=== PATIENT | female | born 1945 | race Caucasian/White ===

== ENCOUNTER 2021-01-27 09:00 | Outpatient (RCR) | payer MEDICARE, SELFPAY ==
--- NOTE | 2020-11-30 13:44 | W.PM.TMSCONS ---
History of Present Illness General Data Date of Service: 11/17/20 Reason for consult: TMS Requesting provider: Lambert Covington History of Present Illness The patient is a 75-year-old female with a history of severe recurrent depression who had responded well to TMS previously 2 years ago with marked reduction PHQ-9. Despite ongoing psychotherapy and multiple changes to medication patient reports low energy poor concentration difficulty functioning marked periods of helplessness hopelessness. The patient has currently been Effexor up to 225 mg nortriptyline to 75 mg and remains quite depressed with marked impairment in functioning. The patient had had improvement with Seroquel the past but had some mouth movements and has avoided treatment with medication that class. She has had to do with over the past year treatment for lung cancer with a lobe resection and has a good prognosis. The patient has failed trials of Anafranil Wellbutrin augmentation with BuSpar in addition to Effexor. Past Psychiatric History/Medication Trials: Long history of intermittent severe depression impacting her life in functioning see above for medication trials. 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 children Substance History: Past history of alcohol abuse has been sober and regularly goes to meetings Meds/Allergies Meds Narrative: Has been on Effexor up to 225 mg daily nortriptyline up to 75 mg daily at bedtime gabapentin 300 the morning 600 at bedtime trazodone at bedtime Allergies Allergies Allergy/AdvReac Type Severity Reaction Status Date / Time No Known Allergies Allergy Unverified 04/21/20 16:09 [No Known Allergies*] Mental Status Exam Mental Status Exam Patient Appearance: Appropriate Patient Orientation: Person, Place, Time and Situation Level of Consciousness: Awake Patient Behavior: Appropriate and Cooperative Mood Description: Withdrawn, Constricted, Depressed, Anxious, Blunted and Apprehensive Affect Description: Depressed, Anxious, Flat, Sad and Apprehensive Ability to Follow Directions: Good Speech Pattern: Clear Memory Description: Intact Hallucinations: None Delusions: Not Present Thought Process: Rumination Thought Content: positive for Obsessional Thoughts and positive for Suicidal Ideation (passive ) Depressive Symptoms: Increased Anxiety, Diff. Making Decisions, Increased Irritability, Feelings of Worthlessness, Increased Fatigue and Low Self Esteem Judgement: Good Assessment & Plan Assessment & Plan (1) Major depressive disorder, recurrent severe without psychotic features: Status: Acute Code(s): F33.2 - Major depressive disorder, recurrent severe without psychotic features Recommendations: Patient has had an exacerbation of depressive symptoms see PHQ-9 failed augmentation of venlafaxine with both BuSpar L methyl folate nortriptyline. sHe would benefit from retreatment with TMS there are no medical contraindications no pacemakers no surgery above had or neck no metallic implants no cochlear implants. Patient had done quite well with TMS in the past has failed multiple combinations of antidepressants and psychotherapy Greater than 50% of the session was spent on counseling and/or coordination of care
--- NOTE | 2020-12-01 20:01 | HO.TMSDAILY2 ---
TMS Daily Progress Note Daily TMS Progress Note Date of Service: 12/01/20 Week #: 1 Treatment #(09-03): 1 PHQ-9 Pre-Treatment (08-31): 19 PHQ-9 Most Recent (08-31): 18 Reviewed: TMS Tech Note Reviewed (initial mapping completed) Verification: I have reviewed the TMS Strategic Partner Development Manager Note and agree with the contents. The patient remains a candidate to continue TMS treatment per protocol.
--- NOTE | 2020-12-02 22:38 | P.PNPS_ITS ---
TMS Daily Progress Note Daily TMS Progress Note Date of Service: 12/02/20 Week #: 1 Treatment #(09-03): 2 PHQ-9 Pre-Treatment (08-31): 19 PHQ-9 Most Recent (08-31): 18 Reviewed: TMS Tech Note Reviewed Verification: I have reviewed the TMS Payable Processor Note and agree with the contents. The patient remains a candidate to continue TMS treatment per pro tocol.
--- NOTE | 2020-12-05 22:30 | P.PNPS_ITS ---
TMS Daily Progress Note Daily TMS Progress Note Date of Service: 12/05/20 Week #: 1 Treatment #(09-03): 3 PHQ-9 Pre-Treatment (08-31): 19 PHQ-9 Most Recent (08-31): 18 Reviewed: TMS Tech Note Reviewed Verification: I have reviewed the TMS Police Captain Note and agree with the contents. The patient remains a candidate to continue TMS treatment per pro tocol.
--- NOTE | 2020-12-06 22:32 | HO.TMSDAILY2 ---
TMS Daily Progress Note Daily TMS Progress Note Date of Service: 12/06/20 Week #: 1 Treatment #(09-03): 4 PHQ-9 Pre-Treatment (08-31): 19 PHQ-9 Most Recent (08-31): 18 Reviewed: TMS Tech Note Reviewed Verification: I have reviewed the TMS Glass Laminating Operator Note and agree with the contents. The patient remains a candidate to continue TMS treatment per protocol.
--- NOTE | 2020-12-07 21:19 | P.PNPS_ITS ---
TMS Daily Progress Note Daily TMS Progress Note Date of Service: 12/07/20 Week #: 1 Treatment #(09-03): 5 PHQ-9 Pre-Treatment (08-31): 19 PHQ-9 Most Recent (08-31): 18 Reviewed: TMS Tech Note Reviewed Verification: I have reviewed the TMS Tank Truck Engine Mechanic Note and agree with the contents. The patient remains a candidate to continue TMS treatment per pro tocol.
--- NOTE | 2020-12-08 21:17 | P.PNPS_ITS ---
TMS Daily Progress Note Daily TMS Progress Note Date of Service: 12/08/20 Week #: 2 Treatment #(09-03): 6 PHQ-9 Pre-Treatment (08-31): 19 PHQ-9 Most Recent (08-31): 18 Reviewed: TMS Tech Note Reviewed Verification: I have reviewed the TMS Artificial Foliage Arranger Note and agree with the contents. The patient remains a candidate to continue TMS treatment per pro tocol.
--- NOTE | 2020-12-09 22:16 | HO.TMSDAILY2 ---
TMS Daily Progress Note Daily TMS Progress Note Date of Service: 12/09/20 Week #: 2 Treatment #(09-03): 7 PHQ-9 Pre-Treatment (08-31): 19 PHQ-9 Most Recent (08-31): 18 Reviewed: TMS Tech Note Reviewed Verification: I have reviewed the TMS Sales Trainer Note and agree with the contents. The patient remains a candidate to continue TMS treatment per protocol.
--- NOTE | 2020-12-12 22:11 | P.PNPS_ITS ---
TMS Daily Progress Note Daily TMS Progress Note Date of Service: 12/12/20 Week #: 2 Treatment #(09-03): 8 PHQ-9 Pre-Treatment (08-31): 19 PHQ-9 Most Recent (08-31): 18 Reviewed: TMS Tech Note Reviewed Verification: I have reviewed the TMS Tanner Rotary Drum Continuous Process Note and agree with the contents. The patient remains a candidate to continue TMS treatment per pro tocol.
--- NOTE | 2020-12-13 22:07 | P.PNPS_ITS ---
TMS Daily Progress Note Daily TMS Progress Note Date of Service: 12/13/20 Week #: 2 Treatment #(09-03): 9 PHQ-9 Pre-Treatment (08-31): 19 PHQ-9 Most Recent (08-31): 18 Reviewed: TMS Tech Note Reviewed Verification: I have reviewed the TMS Solar Installation Technician Note and agree with the contents. The patient remains a candidate to continue TMS treatment per pro tocol.
--- NOTE | 2020-12-15 21:37 | P.PNPS_ITS ---
TMS Daily Progress Note Daily TMS Progress Note Date of Service: 12/15/20 Week #: 2 Treatment #(09-03): 10 PHQ-9 Pre-Treatment (08-31): 19 PHQ-9 Most Recent (08-31): 18 Reviewed: TMS Tech Note Reviewed Verification: I have reviewed the TMS Clinical Application Specialist Note and agree with the contents. The patient remains a candidate to continue TMS treatment per pr otocol.
--- NOTE | 2020-12-19 23:02 | HO.TMSDAILY2 ---
TMS Daily Progress Note Daily TMS Progress Note Date of Service: 12/19/20 Week #: 3 Treatment #(09-03): 12 PHQ-9 Pre-Treatment (08-31): 19 PHQ-9 Most Recent (08-31): 18 Reviewed: TMS Tech Note Reviewed Verification: I have reviewed the TMS Freight Service Inspector Note and agree with the contents. The patient remains a candidate to continue TMS treatment per protocol.
--- NOTE | 2020-12-20 22:43 | P.PNPS_ITS ---
TMS Daily Progress Note Daily TMS Progress Note Date of Service: 12/20/20 Week #: 8 Treatment #(09-03): 13 PHQ-9 Pre-Treatment (08-31): 19 PHQ-9 Most Recent (08-31): 18 Reviewed: TMS Tech Note Reviewed Verification: I have reviewed the TMS Family Member Caretaker Note and agree with the contents. The patient remains a candidate to continue TMS treatment per pr otocol.
--- NOTE | 2020-12-21 22:07 | P.PNPS_ITS ---
TMS Daily Progress Note Daily TMS Progress Note Date of Service: 12/21/20 Week #: 3 Treatment #(09-03): 14 PHQ-9 Pre-Treatment (08-31): 19 PHQ-9 Most Recent (08-31): 18 Reviewed: TMS Tech Note Reviewed Verification: I have reviewed the TMS Supervisor Car And Yard Note and agree with the contents. The patient remains a candidate to continue TMS treatment per pr otocol.
--- NOTE | 2020-12-22 22:26 | HO.TMSDAILY2 ---
TMS Daily Progress Note Daily TMS Progress Note Date of Service: 12/22/20 Week #: 3 Treatment #(09-03): 15 PHQ-9 Pre-Treatment (08-31): 19 PHQ-9 Most Recent (08-31): 18 Reviewed: TMS Tech Note Reviewed Verification: I have reviewed the TMS Clinical Scientist Note and agree with the contents. The patient remains a candidate to continue TMS treatment per protocol.
--- NOTE | 2020-12-24 00:01 | HO.TMSDAILY2 ---
TMS Daily Progress Note Daily TMS Progress Note Date of Service: 12/26/20 Week #: 3 Treatment #(09-03): 16 PHQ-9 Pre-Treatment (08-31): 19 PHQ-9 Most Recent (08-31): 18 Reviewed: TMS Tech Note Reviewed Verification: I have reviewed the TMS Firer Locomotive Crane Note and agree with the contents. The patient remains a candidate to continue TMS treatment per protocol.
--- NOTE | 2020-12-27 23:03 | HO.TMSDAILY2 ---
TMS Daily Progress Note Daily TMS Progress Note Date of Service: 12/27/20 Week #: 4 Treatment #(09-03): 18 PHQ-9 Pre-Treatment (08-31): 19 PHQ-9 Most Recent (08-31): 18 Reviewed: TMS Tech Note Reviewed Verification: I have reviewed the TMS Baseball Hand Sewer Note and agree with the contents. The patient remains a candidate to continue TMS treatment per protocol.
--- NOTE | 2020-12-28 07:42 | HO.TMSDAILY2 ---
TMS Daily Progress Note Daily TMS Progress Note Date of Service: 12/28/20 Week #: 4 Treatment #(09-03): 19 PHQ-9 Pre-Treatment (08-31): 19 PHQ-9 Most Recent (08-31): 18 Reviewed: TMS Tech Note Reviewed Verification: I have reviewed the TMS Internist Medical Doctor Md Note and agree with the contents. The patient remains a candidate to continue TMS treatment per protocol.
--- NOTE | 2020-12-29 21:52 | P.PNPS_ITS ---
TMS Daily Progress Note Daily TMS Progress Note Date of Service: 12/29/20 Week #: 4 Treatment #(09-03): 20 PHQ-9 Pre-Treatment (08-31): 19 PHQ-9 Most Recent (08-31): 18 Reviewed: TMS Tech Note Reviewed Verification: I have reviewed the TMS Semiconductor Packages Leak Tester Note and agree with the contents. The patient remains a candidate to continue TMS treatment per pr otocol.
--- NOTE | 2020-12-30 22:57 | P.PNPS_ITS ---
TMS Daily Progress Note Daily TMS Progress Note Date of Service: 12/30/20 Week #: 5 Treatment #(09-03): 21 PHQ-9 Pre-Treatment (08-31): 19 PHQ-9 Most Recent (08-31): 18 Reviewed: TMS Tech Note Reviewed Verification: I have reviewed the TMS Bleach Plant Operator Note and agree with the contents. The patient remains a candidate to continue TMS treatment per pr otocol.
--- NOTE | 2021-01-03 21:57 | P.PNPS_ITS ---
TMS Daily Progress Note Daily TMS Progress Note Date of Service: 01/03/21 Week #: 5 Treatment #(09-03): 22 PHQ-9 Pre-Treatment (08-31): 19 PHQ-9 Most Recent (08-31): 18 Reviewed: TMS Tech Note Reviewed Verification: I have reviewed the TMS Conservation Or Heritage Architect Note and agree with the contents. The patient remains a candidate to continue TMS treatment per pr otocol.
--- NOTE | 2021-01-04 21:47 | P.PNPS_ITS ---
TMS Daily Progress Note Daily TMS Progress Note Date of Service: 01/04/21 Week #: 5 Treatment #(09-03): 23 PHQ-9 Pre-Treatment (08-31): 19 PHQ-9 Most Recent (08-31): 18 Reviewed: TMS Tech Note Reviewed Verification: I have reviewed the TMS Maintenance Helper Utility Engineer Note and agree with the contents. The patient remains a candidate to continue TMS treatment per pr otocol.
--- NOTE | 2021-01-05 20:43 | HO.TMSDAILY2 ---
TMS Daily Progress Note Daily TMS Progress Note Date of Service: 01/05/21 Week #: 5 Treatment #(09-03): 24 PHQ-9 Pre-Treatment (08-31): 19 PHQ-9 Most Recent (08-31): 18 Reviewed: TMS Tech Note Reviewed Verification: I have reviewed the TMS Bookkeeping Manager Note and agree with the contents. The patient remains a candidate to continue TMS treatment per protocol.
--- NOTE | 2021-01-06 22:43 | P.PNPS_ITS ---
TMS Daily Progress Note Daily TMS Progress Note Date of Service: 01/06/21 Week #: 5 Treatment #(09-03): 25 PHQ-9 Pre-Treatment (08-31): 19 PHQ-9 Most Recent (08-31): 18 Reviewed: TMS Tech Note Reviewed Verification: I have reviewed the TMS Contracts Manager Note and agree with the contents. The patient remains a candidate to continue TMS treatment per pr otocol.
--- NOTE | 2021-01-10 21:30 | P.PNPS_ITS ---
TMS Daily Progress Note Daily TMS Progress Note Date of Service: 01/10/21 Week #: 6 Treatment #(09-03): 27 PHQ-9 Pre-Treatment (08-31): 19 PHQ-9 Most Recent (08-31): 18 Reviewed: TMS Tech Note Reviewed Verification: I have reviewed the TMS Director Housekeeping Note and agree with the contents. The patient remains a candidate to continue TMS treatment per pr otocol.
--- NOTE | 2021-01-12 12:19 | P.PNPS_ITS ---
TMS Daily Progress Note Daily TMS Progress Note Date of Service: 01/11/21 Week #: 6 Treatment #(09-03): 28 PHQ-9 Pre-Treatment (08-31): 19 PHQ-9 Most Recent (08-31): 18 Reviewed: TMS Tech Note Reviewed Verification: I have reviewed the TMS Multineedle Shirrer Note and agree with the contents. The patient remains a candidate to continue TMS treatment per pr otocol.
--- NOTE | 2021-01-12 23:03 | P.PNPS_ITS ---
TMS Daily Progress Note Daily TMS Progress Note Date of Service: 01/12/21 Week #: 6 Treatment #(09-03): 29 PHQ-9 Pre-Treatment (08-31): 19 PHQ-9 Most Recent (08-31): 18 Reviewed: TMS Tech Note Reviewed Verification: I have reviewed the TMS Circle Cutting Saw Operator Note and agree with the contents. The patient remains a candidate to continue TMS treatment per pr otocol.
--- NOTE | 2021-01-16 22:15 | P.PNPS_ITS ---
TMS Daily Progress Note Daily TMS Progress Note Date of Service: 01/17/21 Week #: 7 Treatment #(09-03): 31 PHQ-9 Pre-Treatment (08-31): 19 PHQ-9 Most Recent (08-31): 18 Reviewed: TMS Tech Note Reviewed Verification: I have reviewed the TMS Director Of Billing Note and agree with the contents. The patient remains a candidate to continue TMS treatment per pr otocol.
--- NOTE | 2021-01-17 23:49 | HO.TMSDAILY2 ---
TMS Daily Progress Note Daily TMS Progress Note Date of Service: 01/17/21 Week #: 7 Treatment #(09-03): 32 PHQ-9 Pre-Treatment (08-31): 19 PHQ-9 Most Recent (08-31): 18 Reviewed: TMS Tech Note Reviewed Verification: I have reviewed the TMS Director Of Counterintelligence Note and agree with the contents. The patient remains a candidate to continue TMS treatment per protocol.
--- NOTE | 2021-01-26 10:04 | P.PNPS_ITS ---
TMS Daily Progress Note Daily TMS Progress Note Date of Service: 01/20/21 Week #: 7 Treatment #(09-03): 33 PHQ-9 Pre-Treatment (08-31): 19 PHQ-9 Most Recent (08-31): 18 Reviewed: TMS Tech Note Reviewed Verification: late entry for I have reviewed the TMS Locker Room Attendant Note and agree with the contents. The patient remains a candidate to continue TMS treatment per protocol.
--- NOTE | 2021-01-26 13:12 | HO.TMSDAILY2 ---
TMS Daily Progress Note Daily TMS Progress Note Date of Service: 01/23/21 Week #: 8 Treatment #(09-03): 34 PHQ-9 Pre-Treatment (08-31): 19 PHQ-9 Most Recent (08-31): 18 Reviewed: TMS Tech Note Reviewed Verification: I have reviewed the TMS Customer Service Representative Teller Note and agree with the contents. The patient remains a candidate to continue TMS treatment per protocol. Documented on 01/26 for treatment 01/23
--- NOTE | 2021-01-27 22:38 | P.PNPS_ITS ---
TMS Daily Progress Note Daily TMS Progress Note Date of Service: 01/27/21 Week #: 8 Treatment #(09-03): 36 PHQ-9 Pre-Treatment (08-31): 19 PHQ-9 Most Recent (08-31): 18 Reviewed: TMS Tech Note Reviewed Verification: I have reviewed the TMS Environmental Control Administrator Note and agree with the contents. The patient remains a candidate to continue TMS treatment per pr otocol.
== END 2021-01-27 14:18 | disposition home or self-care (01) ==
LOC: HO.PTMS 09:00
PROVIDERS: Visit Provider Psychiatry & Neurology Psychiatry
DX: F33.2 Major depressive disorder, recurrent severe without psychotic features (principal)
CPT/HCPCS: 90867; 90868

== ENCOUNTER → 2022-04-30 14:55 | Outpatient (BNVA) | payer MEDICARE, SELFPAY | PROVIDERS: PCP Nurse Practitioner Family; Visit Provider Psychiatry & Neurology Psychiatry | DX: F33.2 Major depressive disorder, recurrent severe without psychotic features (principal); F41.1 Generalized anxiety disorder | CPT/HCPCS: 99212 ==

== ENCOUNTER → 2022-05-22 09:34 | Outpatient (BNVA) | payer MEDICARE, SELFPAY | PROVIDERS: PCP Nurse Practitioner Family; Visit Provider Psychiatry & Neurology Psychiatry | DX: F33.2 Major depressive disorder, recurrent severe without psychotic features (principal); F41.1 Generalized anxiety disorder | CPT/HCPCS: 90833; 99212 ==

== ENCOUNTER → 2022-06-15 11:03 | Outpatient (BNVA) | payer MEDICARE, SELFPAY | PROVIDERS: PCP Nurse Practitioner Family; Visit Provider Psychiatry & Neurology Psychiatry | DX: F98.8 Other specified behavioral and emotional disorders with onset usually occurring in childhood and adolescence (principal); F41.1 Generalized anxiety disorder; F33.2 Major depressive disorder, recurrent severe without psychotic features | CPT/HCPCS: 99212 ==

== ENCOUNTER → 2022-07-25 11:06 | Outpatient (REF) | payer MEDICARE, SELFPAY ==
--- NOTE | 2022-07-25 11:59 | ECG_ITS ---
Test Reason : HTN Blood Pressure : / mmHG Vent. Rate : 056 BPM Atrial Rate : 056 BPM P-R Int : 126 ms QRS Dur : 094 ms QT Int : 466 ms P-R-T Axes : 050 019 056 degrees QTc Int : 449 ms Sinus bradycardia Otherwise normal ECG When compared with ECG of 07-OCT-2019 13:31, No significant change was found Referred By: Lambert Covington Electronically Signed By:Tahir Gomez
== END ==
LOC: HO.CARD 11:06
PROVIDERS: PCP Nurse Practitioner Family; Referring Provider Nurse Practitioner Family; Visit Provider Psychiatry & Neurology Psychiatry
DX: I10 Essential (primary) hypertension (principal)
CPT/HCPCS: 93005

== ENCOUNTER → 2022-08-15 11:01 | Outpatient (BNVA) | payer MEDICARE, SELFPAY | PROVIDERS: PCP Nurse Practitioner Family; Visit Provider Psychiatry & Neurology Psychiatry | DX: F41.1 Generalized anxiety disorder (principal); F98.8 Other specified behavioral and emotional disorders with onset usually occurring in childhood and adolescence; F33.2 Major depressive disorder, recurrent severe without psychotic features; I10 Essential (primary) hypertension; F10.21 Alcohol dependence, in remission | CPT/HCPCS: 90833; 99212 ==

== ENCOUNTER → 2022-09-26 14:06 | Outpatient (BNVA) | payer MEDICARE, SELFPAY | PROVIDERS: PCP Nurse Practitioner Family; Visit Provider Psychiatry & Neurology Psychiatry | DX: F98.8 Other specified behavioral and emotional disorders with onset usually occurring in childhood and adolescence (principal); F41.1 Generalized anxiety disorder; F33.2 Major depressive disorder, recurrent severe without psychotic features; F10.21 Alcohol dependence, in remission; I10 Essential (primary) hypertension | CPT/HCPCS: 99212 ==

== ENCOUNTER → 2022-10-16 16:00 | Outpatient (BNVA) | payer MEDICARE, SELFPAY | PROVIDERS: PCP Nurse Practitioner Family; Visit Provider Psychiatry & Neurology Psychiatry | DX: F41.1 Generalized anxiety disorder (principal); F98.8 Other specified behavioral and emotional disorders with onset usually occurring in childhood and adolescence; F10.21 Alcohol dependence, in remission | CPT/HCPCS: 90833; Q3014 ==

== ENCOUNTER → 2022-11-06 17:00 | Outpatient (BNVA) | payer MEDICARE, SELFPAY | PROVIDERS: PCP Nurse Practitioner Family; Visit Provider Psychiatry & Neurology Psychiatry | DX: F33.2 Major depressive disorder, recurrent severe without psychotic features (principal); F41.1 Generalized anxiety disorder; F98.8 Other specified behavioral and emotional disorders with onset usually occurring in childhood and adolescence; I10 Essential (primary) hypertension | CPT/HCPCS: 90833; 99212 ==

== ENCOUNTER → 2022-11-23 14:00 | Outpatient (BNVA) | payer MEDICARE, SELFPAY | PROVIDERS: PCP Nurse Practitioner Family; Visit Provider Psychiatry & Neurology Psychiatry | DX: F98.8 Other specified behavioral and emotional disorders with onset usually occurring in childhood and adolescence (principal) | CPT/HCPCS: Q3014 ==

== ENCOUNTER → 2022-12-20 13:32 | Outpatient (BNVA) | payer MEDICARE, SELFPAY | PROVIDERS: PCP Nurse Practitioner Family; Visit Provider Psychiatry & Neurology Psychiatry | DX: F33.2 Major depressive disorder, recurrent severe without psychotic features (principal); F98.8 Other specified behavioral and emotional disorders with onset usually occurring in childhood and adolescence; F41.1 Generalized anxiety disorder; I10 Essential (primary) hypertension | CPT/HCPCS: 99212 ==

== ENCOUNTER → 2023-01-29 15:36 | Outpatient (BNVA) | payer MEDICARE, SELFPAY | PROVIDERS: PCP Physician Assistant; Visit Provider Psychiatry & Neurology Psychiatry ==

== ENCOUNTER 2023-02-21 14:14 | Outpatient (AMB) | payer MEDICARE, SELFPAY ==
--- NOTE | 2023-02-21 14:35 | A.OFFPSYCH_ITS ---
Intake Intake Visit Reasons: Depression Allergies No Known Allergies [No Known Allergies*] Allergy (Unverified 04/21/20 16:09) HPI- Psychiatric Chief Complaint: Depression HPI Narrative: The patient has been somewhat improved had a recent trip with her sister which seemed to go well and she felt supported this so is a big trigger for her feeling like she is the black sheep of the family feeling supported by her sister getting along well was helpful for her. Away from the stress of managing her house on a daily basis she also seemed to feel much better in this distance also helped her problem solve some of the issues that she is dealing with including trying to rent out her house intermittently to a visiting nurse. She continues on clonidine low-dose Effexor trazodone at bedtime she has not been using mirtazapine oxcarbazepine seems to be somewhat helpful Past Psychiatric History: Patient has had periods of suicidal depression pat ient has been seeing this policy writer typist for psychiatric follow-up for many years 150 mg daily higher doses were not effective clonidine half to 1 tab daily or half tab b.i.d. was on Depakote ER has had side effects. Gabapentin 300 mg morning 600 bedtime trazodone 100 at bedtime. Has not tolerated multiple SSRI trials mirtazapine Seroquel Anafranil and nortriptyline Patient has had periods of suicidal depression patient has been seeing this policy writer typist for psychiatric follow- up for many year 150 mg daily higher doses were not effective clonidine half to 1 tab daily or half tab b.i.d. was on Depakote ER has had side effects. Mental Status Exam Mental Status Exam Narrative: Mental Status Exam Narrative: Appearance: Casually dressed Behavior: Cooperative appropriate psychomotor: Within normal limits Speech: Normal volume and prosody Thought proccess logical and goal-directed some perseveration Thought content: Future oriented no self-harming thoughts seems more hopeful better sense that she may be able to manage her life situation had been feeling quite trapped unable to see a way out Mood: Euthymic some anxiety Affect: Appropriate to mood full affect less lability and despair SI:denies HI:denies VH/AH:none Delusions: None Insight/judgment: Improved insight and judgment Memory/cog: Intact Assessment and Plan Assessment & Plan (1) Major depressive disorder, recurrent severe without psychotic features: Status: Acute Code(s): F33.2 - Major depressive disorder, recurrent severe without psychotic features (2) ADD (attention deficit disorder): Status: Acute Code(s): F98.8 - Other specified behavioral and emotional disorders with onset usually occurring in childhood and adolescence (3) Generalized anxiety disorder: Status: Acute Code(s): F41.1 - Generalized anxiety disorder Plan Continue Effexor Trileptal clonidine encourage daily walk stress management techniques coping strategies to manage stress related to maintaining her house a nd financial issues which patient appears to be doing Medications: Discontinued mirtazapine Discontinued Reason: No Longer Medically Relevant 7.5 mg PO BEDTIME 30 tabs 1RF Counseling and coordination of Care Pt. Self Management counseling: Breathing, Exercise, Maintenance-social rhythm, Behavior activation and Cognitive restructuring Medication management counseling: Effectiveness, Side effects and Dosing range Diagnosis and Prognosis Counseling: Accuracy of diagnosis, Problematic behaviors secondary to diagnosis and Adequacy of current interventions Details: I spent [40] minutes reviewing the record, seeing the patient and documenting in the medical record. Counseling provided to the patient/caregiver as outlined below. Addressed patient/caregiver concerns regarding current medication regime including effective adherence. Addressed patient/caregiver concerns regarding diagnosis and prognosis including accuracy of diagnosis, prognosis over time, impact of diagnosis. Addressed patient/caregiver concerns regarding impact of recent stressors. REPLACED BY [facility] Medical History (Updated 05/22/22 @ 10:33 by Lambert Covington MD) Alcohol use disorder, severe, in sustained remission Essential hypertension Generalized anxiety disorder Primary lung cancer Social History: Patient lives alone owned her own house retired history of ADD has always felt like the black sheep of the family Substance History: Past history of alcohol abuse has been sober and regularly goes to meetings Trauma History: past Coding Level of Care Code Est Pt Level 3 (92338) Therapy 30m w/E&M (08353) Diagnoses Major depressive disorder, recurrent severe without psychotic features F33.2 ADD (attention deficit disorder) F98.8 Generalized anxiety disorder F41.1
== END 2023-02-21 15:21 | disposition home or self-care (01) ==
LOC: HO.HOP 14:14
PROVIDERS: PCP Physician Assistant; Visit Provider Psychiatry & Neurology Psychiatry
DX: F33.2 Major depressive disorder, recurrent severe without psychotic features (principal); F98.8 Other specified behavioral and emotional disorders with onset usually occurring in childhood and adolescence; F41.1 Generalized anxiety disorder
CPT/HCPCS: 90833; 99213

== ENCOUNTER → 2023-02-21 14:14 | Outpatient (BNVA) | payer MEDICARE, SELFPAY | PROVIDERS: PCP Physician Assistant; Visit Provider Psychiatry & Neurology Psychiatry | DX: F33.2 Major depressive disorder, recurrent severe without psychotic features (principal); F98.8 Other specified behavioral and emotional disorders with onset usually occurring in childhood and adolescence; F41.1 Generalized anxiety disorder; Z79.899 Other long term (current) drug therapy | CPT/HCPCS: 90833; 99212 ==

== ENCOUNTER 2023-02-26 14:12 | Emergency (ER) | payer MEDICARE, SELFPAY ==
--- NOTE | ~2023-02-26 | XR_ITS ---
EXAMINATION: XR CHEST CLINICAL INFORMATION: Chest pain. COMPARISON: 06/21/2016 chest radiograph. TECHNIQUE: 2 views of the chest were obtained. FINDINGS: There is mild blunting of the right costophrenic angle and sulcus. Mild right apical pleural thickening. Mild increased soft tissue fullness is seen in the right paratracheal region. The left lung is clear. The heart and mediastinal structures are unremarkable. XR/XR chest 2V IMPRESSION: Right lung findings appear chronic. Soft tissue fullness in the right paratracheal region is increased as well but has an overall benign appearance. Correlate with possible surgery or other interval abnormality since 2016. If pain persists or worsens, a chest CT scan should be considered
--- NOTE | ~2023-02-26 | CT_ITS ---
EXAMINATION: CT HEAD WITHOUT CONTRAST CLINICAL INFORMATION: Pain. COMPARISON: None available. TECHNIQUE: Contiguous axial imaging was performed from the skull base to vertex without intravenous administration of contrast. This CT examination was performed using dose optimization techniques as appropriate, variously including the following: *Automated exposure control *Adjustment of mA and/or kV according to patient size (this includes techniques or standardized protocols for targeted exams where dose is matched to indication/reason for exam; i.e. extremities or head) *Use of iterative reconstruction technique DLP: 608 mGy-cm FINDINGS: No acute abnormalities. The palma-white matter differentiation is well preserved. No evidence of an acute major vascular territory infarction. No intracranial hemorrhage, extra-axial fluid collection, focal mass effect or midline shift. The ventricles have normal size and configuration; no hydrocephalus. The brainstem and cerebellum have a normal appearance. The cerebellar tonsils are in normal position. The calvarium is intact. The visualized paranasal sinuses, mastoid air cells and middle ear cavities are well aerated. The orbits and globes are unremarkable. The temporomandibular joints are normal. CT/CT head/brain wo IV con IMPRESSION: No acute intracranial pathology.
[2023-02-26 14:18] VITALS: BP 172/84; PULSE 57; RESP 18; TEMP 36; O2SAT 100; BMI 20.5
--- NOTE | 2023-02-26 14:21 | ECG_ITS ---
Test Reason : Dizzy Blood Pressure : / mmHG Vent. Rate : 056 BPM Atrial Rate : 056 BPM P-R Int : 130 ms QRS Dur : 090 ms QT Int : 446 ms P-R-T Axes : 053 033 049 degrees QTc Int : 430 ms Sinus bradycardia Otherwise normal ECG When compared with ECG of 25-JUL-2022 12:06, No significant change was found Referred By: Joseph Ye Electronically Signed By:YONG HERNANDEZ MD
--- NOTE | 2023-02-26 14:21 | ED.GENADULT ---
HPI - General Adult General Chief complaint: Weakness Stated complaint: Stroke Like Symptoms Sent By PCP Related Data Home Medications Medication Instructions Recorded Confirmed lisinopril 5 mg tablet 5 mg PO DAILY 01/29/23 04/15/23 Previous Rx's Medication Instructions Recorded trazodone 100 mg tablet 50 - 100 mg (0.5 - 1 x 100 mg) PO 04/01/23 BEDTIME PRN insomnia #30 tabs clonidine HCl 0.1 mg tablet 0.1 mg PO BID #180 tabs 04/15/23 oxcarbazepine 150 mg tablet 150 mg PO TID #90 tabs 04/15/23 venlafaxine 75 mg capsule,extended 75 mg PO DAILY #90 caps 04/22/23 release 24 hr Allergies Allergy/AdvReac Type Severity Reaction Status Date / Time No Known Allergies Allergy Verified 02/26/23 14:18 [No Known Allergies*] FOR[facility]LY [facility] Past Medical History Medical History (Updated 05/04/23 @ 12:15 by Joseph Ye) Alcohol use disorder, severe, in sustained remission Essential hypertension Primary lung cancer Generalized anxiety disorder Physical Exam ED Vital Signs: BMI result Body Mass Index 20.5 Course Course Course Narrative: RME- 77 year old female presents for evaluation of general weakness and headaches since saturday, 4 days ago. NIH stroke score of 0. Plan for labs, CT brain as the patient denies history of headaches. Medical Decision Making Lab Data 02/26/23 14:53 02/26/23 14:53 Labs: Lab Results 02/26/23 02/26/23 Range/Units 14:53 18:42 WBC 7.3 (4.8-10.8) X10*3/uL RBC 4.99 (4.20-5.50) X10*6/uL Hgb 15.8 (12.0-16.0) g/dl Hct 46.0 (37.0-47.0) % MCV 92.2 (80.0-98.0) fL MCH 31.7 (27.0-33.0) pg MCHC 34.3 (31.0-35.0) g/dl RDW 12.8 (11.0-16.0) % Plt Count 279 (160-400) X10*3/uL MPV 9.1 L (9.4-12.3) fL Immature Gran % (Auto) 0.4 (0.0-0.4) % Neut % (Auto) 53.3 (45-73) % Lymph % (Auto) 30.9 (20-40) % Lasalle % (Auto) 10.7 (2-11) % Eos % (Auto) 3.7 (0-4) % Baso % (Auto) 1.0 (0-2) % Lymph # (Auto) 2.3 (1.2-4.9) X10*3/uL Lasalle # (Auto) 0.8 (0.1-1.2) X10*3/uL Eos # (Auto) 0.3 (0.0-0.4) X10*3/uL Baso # (Auto) 0.1 (0.0-0.2) X10*3/uL Abs Immat Gran (auto) 0.03 (0.00-0.03) X10*3/uL Absolute Neuts (auto) 3.9 (2.0-8.3) x10*3/uL Absolute Nucleated RBC 0.000 (0.0-0.012) X10*3/uL Nucleated RBC % (auto) 0.0 (0.0-0.2) /100WBC PT 10.8 L (11.1-13.3) SEC INR 0.9 (0.9-1.1) APTT 30.0 (26.0-36.4) SEC Sodium 140 (135-145) mmol/L Potassium 5.0 (3.3-5.1) mmol/L Chloride 103 (96-108) mmol/L Carbon Dioxide 31 H (22-29) mmol/L Anion Gap 11 L (12-20) BUN 16 (9-16) mg/dL Creatinine 0.78 (0.5-1.4) mg/dL Estim Creat Clear Calc 47.0 Estimated GFR > 60 Random Glucose 98 (60-115) mg/dL Calcium 10.3 H (8.4-10.2) mg/dL Total Bilirubin 0.4 (0.0-1.0) mg/dL AST 22 (5-31) U/L ALT 18 (0-31) U/L Alkaline Phosphatase 86 (39-117) U/L Troponin I High Sens 3.3 (<3.5-17.0) ng/L Total Protein 7.3 (6.5-8.0) g/dL Albumin 4.3 (3.5-5.0) g/dL Lipase 31 (8-78) U/L Urine Color Yellow Urine Appearance Clear Urine pH 6.5 (5.0-9.0) Ur Specific Wellman 1.020 (1.005-1.025) Urine Protein Negative (Neg-Trace) mg/dL Urine Glucose (UA) Negative (Negative) mg/dL Urine Ketones Negative (Negative) mg/dL Urine Blood Negative (Negative) Urine Nitrite Negative (Negative) Ur Leukocyte Esterase Negative (Negative) Urine RBC 0-2 (0-2) /HPF Urine WBC 0-5 (0-5) /HPF Ur Squamous Epith Cells 0-2 (0-2) /HPF Urine Bacteria None Seen (None Seen) Hyaline Casts 0-2 (0-2) /LPF Discharge Plan Discharge Clinical Impression: Generalized anxiety disorder Patient Disposition: Elopement Prescriptions: No Action trazodone 100 mg tablet 50 - 100 mg PO BEDTIME PRN (Reason: insomnia) Qty: 30 2RF venlafaxine 75 mg capsule,extended release 24hr 75 mg PO DAILY Qty: 90 1RF lisinopril 5 mg tablet 5 mg PO DAILY clonidine HCl 0.1 mg tablet 0.1 mg PO BID Qty: 180 0RF oxcarbazepine 150 mg tablet 150 mg PO TID Qty: 90 1RF Discharge Date/Time: 02/26/23 19:13
[2023-02-26 15:01] LABS: MANUAL DIFF FLAG NO
[2023-02-26 15:02] LABS: Basophils Absolute Auto 0.1 X10*3/uL (0.0-0.2); Eosinophils Absolute Auto 0.3 X10*3/uL (0.0-0.4); Eosinophils Percent Auto 3.7 % (0-4); Hemoglobin 15.8 g/dl (12.0-16.0); Imm Gran Abs Auto 0.03 X10*3/uL (0.00-0.03); Imm Gran Pct Auto 0.4 % (0.0-0.4); Lymphocytes Absolute Auto 2.3 X10*3/uL (1.2-4.9); Lymphocytes Percent Auto 30.9 % (20-40); Mean Corpuscular HGB Conc 34.3 g/dl (31.0-35.0); Mean Corpuscular Hemoglobin 31.7 pg (27.0-33.0); Mean Corpuscular Volume 92.2 fL (80.0-98.0); Mean Platelet Volume 9.1 fL (9.4-12.3); Monocytes Absolute Auto 0.8 X10*3/uL (0.1-1.2); Monocytes Percent Auto 10.7 % (2-11); Neutrophils Absolute Auto 3.9 x10*3/uL (2.0-8.3); Neutrophils Percent Auto 53.3 % (45-73); Platelet Count 279 X10*3/uL (160-400); Red Blood Count 4.99 X10*6/uL (4.20-5.50); Red Cell Distribution Width 12.8 % (11.0-16.0); White Blood Count 7.3 X10*3/uL (4.8-10.8)
[2023-02-26 15:11] LABS: INTERNATIONAL NORM RATIO 0.9 (0.9-1.1); Prothrombin Time 10.8 SEC (11.1-13.3)
[2023-02-26 15:18] LABS: Alanine Aminotransferase 18 U/L (0-31); Albumin Level 4.3 g/dL (3.5-5.0); Alkaline Phosphatase 86 U/L (39-117); Anion Gap 11 (12-20); Aspartate Amino Transferase 22 U/L (5-31); Bilirubin Total 0.4 mg/dL (0.0-1.0); Blood Urea Nitrogen 16 mg/dL (9-16); Calcium 10.3 mg/dL (8.4-10.2); Carbon Dioxide 31 mmol/L (22-29); Chloride 103 mmol/L (96-108); Estimated Glomerular Filt Rate > 60; Glucose Random 98 mg/dL (60-115); Lipase 31 U/L (8-78); Sodium 140 mmol/L (135-145); Total Protein 7.3 g/dL (6.5-8.0)
[2023-02-26 15:25] LABS: Troponin-I High Sensitivity 3.3 ng/L (<3.5-17.0)
--- NOTE | 2023-02-26 18:39 | PC.NURSE ---
patients doctor came to the ED looking for the patient who was still in the waiting room, he was asking if the head CT had been performed- none was ordered- pts provider requested to be brought to triage to speak with the provider-shabbir out there. This nurse brought the MD to triage.
[2023-02-26 18:52] LABS: Appearance Urine Clear; Color Urine Yellow; Glucose Urine UA Negative (Negative); Leukocyte Esterase Urine Negative (Negative); Nitrite Urine Negative (Negative); PH 6.5 (5.0-9.0); Urine Blood Negative (Negative); Urine Ketones Negative (Negative); Urine Protein Negative (Neg-Trace)
[2023-02-26 18:57] LABS: Bacteria Urine None Seen (None Seen); Hyaline Casts Urine 0-2 /LPF (0-2); RBC Urine 0-2 /HPF (0-2); Squamous Epithelial Cell Urine 0-2 /HPF (0-2); WBC Urine 0-5 /HPF (0-5)
--- OUTSIDE RECORDS SUMMARY | 2023-02-26 19:09 | XMS_ITS | Continuity of Care Document ---
Author Name Unknown Organization [facility] Address [address] [place] [address] [address] [place] [address]- Care Team Providers Care Learning And Development Officer Name Role Phone Negra MACIEL, Kye Apple Primary Care Physician Encounter 12/11/22 - 12/18/22 [facility] [address], [facility] [address] [place] [address]- Attending Physician: Abeba Mccallum NP Admitting Physician: Abeba Mccallum NP Referring Physician: Abeba Mccallum NP Allergies, Adverse Reactions, Alerts No Known Allergies Medications acetaminophen 325 mg oral tablet 975 mg, By Mouth, Every 8 hours, Refills 0, Maintenance, 05/28/20 11:41:00 EDT Start Date: 05/28/20 Status: Ordered Amlodipine By Mouth, Daily, 0 Refills, Maintenance, 09/19/22 10:00:00 EST, Partial fill upon patient request if the prescription is for a schedule II opioid drug. Start Date: 09/19/22 Status: Ordered Centrum Silver 1 tablet, By Mouth, Daily in AM, 0 Refills, Maintenance, 06/04/19 13:01:55 EDT Start Date: 06/04/19 Status: Ordered chantix 0.5mg tablet 1 tablet = 0.5 mg, By Mouth, 2 times a day, # 56 tablet, 0 Refills, Maintenance, 07/08/19 9:49:56 EST, Tablet Start Date: 07/08/19 Status: Ordered cloNIDine 0.1 mg oral tablet 0.1 mg, 1, tablet, By Mouth, 2 times a day, Refills 0, Maintenance, 09/19/22 10:00:00 EST, Partial fill upon patient request if the prescription is for a schedule II opioid drug. Start Date: 09/19/22 Status: Ordered divalproex sodium 500 mg oral enteric coated tablet 1 tablet = 500 mg, By Mouth, 3 times a day, # 270 tablet, 0 Refills, Maintenance, 09/19/22 10:00:00EST, EC Tablet, Partial fill upon patient request if the prescription is for a schedule II opioid drug. Start Date: 09/19/22 Status: Ordered Fish Oil = 1,200 mg, By Mouth, 2 times a day, 0 Refills, Maintenance, 06/04/19 13:01:22 EDT Start Date: 06/04/19 Status: Ordered Gabapentin = 600 mg, By Mouth, Daily at bedtime, 0 Refills, Maintenance, 08/12/19 12:26:00 EST Start Date: 08/12/19 Status: Ordered Gabapentin = 300 mg, By Mouth, Daily in AM, 0 Refills, Maintenance, 06/04/19 13:00:40 EDT Start Date: 06/04/19 Status: Ordered imipramine 10 mg oral tablet TAKE 2 TABLETS BY MOUTH AT BEDTIME Start Date: 12/18/22 Status: Ordered Magnesium Magnesium, By Mouth, Daily, 0 Refills, Maintenance, 12/18/22 9:11:00 EDT Start Date: 12/18/22 Status: Ordered metoprolol 25 mg oral tablet 12.5 mg, 0.5, tablet, By Mouth, Every 12 hours, # 30 tablet, Refills 0, Tot. Refills 0, Maintenance, 08/20/19 13:22:00 EST, Print Requisition Start Date: 08/20/19 Status: Ordered Nortriptyline = 50 mg, By Mouth, Daily at bedtime, 0 Refills, Maintenance, 06/04/19 13:00:58 EDT Start Date: 06/04/19 Status: Ordered OXcarbazepine 150 mg oral tablet TAKE 1 TABLET BY MOUTH TWICE DAILY Start Date: 12/18/22 Status: Ordered Trazodone = 100 mg, By Mouth, Daily at bedtime, pt is taking 1/2 tab at bedtime, 0 Refills, Maintenance, 06/04/19 13:01:10 EDT Start Date: 06/04/19 Status: Ordered Venlafaxine = 150 mg, By Mouth, Daily in AM, 0 Refills, Maintenance, 06/04/19 13:00:26 EDT Start Date: 06/04/19 Status: Ordered venlafaxine 75 mg oral capsule, extended release TAKE 1 CAPSULE BY MOUTH DAILY Start Date: 12/18/22 Status: Ordered Vitamin B12 = 1,000 mcg, By Mouth, Daily in AM, 0 Refills, Maintenance, 06/04/19 13:01:48 EDT Start Date: 06/04/19 Status: Ordered Vitamin C By Mouth, Daily, 0 Refills, Maintenance, 12/18/22 9:11:00 EDT, Partial fill upon patient request ifthe prescription is for a schedule II opioid drug. Start Date: 12/18/22 Status: Ordered Vitamin D3 1 tablet, By Mouth, Daily in AM, 0 Refills, Maintenance, 06/04/19 13:01:40 EDT Start Date: 06/04/19 Status: Ordered Problem List Condition Confirmation Course Effective Dates Status Health St atus Informant Atrial fibrillation with rapid ventricular response Confirmed 08/18/[address] Confirmed 11/09/20 Active Depression Confirmed Active Hypertension Confirmed Active Malodorous urine Confirmed 09/04/19 Active Moderate cigarette smoker (10-19 per day) 1 Confirmed Active Primary cancer of right lower lobe of lung ([id number]) Confirmed 08/17/19 Active 11 ppd x 50 yrs Results Radiology Reports * Exam Date Time Procedure Performing Provider Status 12/11/22 9:[address] Chest W/ Contrast Araceli Diego; Keiry (Verified) Notes: (CT Chest W/ Contrast) Reason For Exam: Other: RESULT: CT Chest W/ Contrast CT Chest W/ Contrast INDICATION: Lung cancer. Follow-up right lobe upper lobe nodule. TECHNIQUE: Helical CT scan of the chest with IV contrast, formatted in 3 planes. cc of 100 cc Omnipaque 300 was administered intravenously. Weight-based protocol was performed using automatic exposure control. CTDIvol Body: 6.31 mGy, DLP Body: 215 mGy*cm. COMPARISON: 09/05/2022 FINDINGS: The heart is at the upper limits of normal for size. There is no pericardial effusion. Scattered subcentimeter mediastinal lymph nodes are present. There is no lymphadenopathy by size criteria. Postsurgical change consistent with right lower lobe resection is seen. There is residual mucous within the airway. Emphysematous changes with diffuse reticulation are similar to the prior study. There is a stable left upper lobe nodule measuring 0.3 cm (image 32 series 3). The previously seen right upper lobe irregular nodule has largely resolved. No focal infiltrates or pleural effusions are present. A 1.5 cm cyst within the lateral segment of the left hepatic lobe is seen. There is a dystrophic hepatic calcification within the left lobe. Diffuse prominence of both adrenal glands is noted withoutdiscrete mass. The remainder of the visualized upper abdomen is unremarkable. Degenerative loss of height of a midthoracic vertebral body is stable. IMPRESSION: Interval resolution of the right upper lobe nodule which was likely infectious or inflammatory. There is otherwise no change. WSN: [id number] Ordering Physician: Abeba Mccallum Dictated By: Shaniqua Calvin MD Dictated Date/Time: 12/11/22 9:52 am Reviewed By: Shaniqua Calvin MD Signed By: Shaniqua Calvin MD Signed Date/Time: 12/11/22 9:52 am Transcribed By: SANYA Transcribed Date/Time: 12/11/22 9:49 am Social History Social History Type Response Smoking Status 10 or more cigarette s (1/2 pack or more)/day in last 30 days entered on: 09/19/[address] Chest W contrast IV * [facility] , CIS S: TRANSCRIBE Shaniqua Calvin MD: VERIFY Event Display: Result: Authored Date: [id number] CT Chest W/ Contrast INDICATION: Lung cancer. Follow-up right lobe upper lobe nodule. TECHNIQUE: Helical CT scan of the chest with IV contrast, formatted in 3 planes. cc of 100 cc Omnipaque 300 was administered intravenously. Weight-based protocol was performed using automatic exposure control. CTDIvol Body: 6.31 mGy, DLP Body: 215 mGy*cm. COMPARISON: 09/05/2022 FINDINGS: The heart is at the upper limits of normal for size. There is no pericardial effusion. Scattered subcentimeter mediastinal lymph nodes are present. There is no lymphadenopathy by size criteria. Postsurgical change consistent with right lower lobe resection is seen. There is residual mucous within the airway. Emphysematous changes with diffuse reticulation are similar to the prior study. There is a stable left upper lobe nodule measuring 0.3 cm (image 32 series 3). The previously seen right upper lobe irregular nodule has largely resolved. No focal infiltrates or pleural effusions are present. A 1.5 cm cyst within the lateral segment of the left hepatic lobe is seen. There is a dystrophic hepatic calcification within the left lobe. Diffuse prominence of both adrenal glands is noted withoutdiscrete mass. The remainder of the visualized upper abdomen is unremarkable. Degenerative loss of height of a midthoracic vertebral body is stable. IMPRESSION: Interval resolution of the right upper lobe nodule which was likely infectious or inflammatory. There is otherwise no change. WSN: [id number] Ordering Physician: Abeba Mccallum Dictated By: Shaniqua Calvin MD Dictated Date/Time: 12/11/22 9:52 am Reviewed By: Shaniqua Calvin MD Signed By: Shaniqua Calvin MD Signed Date/Time: 12/11/22 9:52 am Transcribed By: SANYA Transcribed Date/Time: 12/11/22 9:49 am Patient Care team information Care Team Personnel Name: Nasrin Sutton RN Position: S RN Member Role: Primary Care Nurse Name: Kye Omer MD Position: S Outreach Member Role: PCP Address: Address: [address] [place] [address]- Name: Parul Howard RN Position: S RN Member Role: Primary Care Nurse Name: Araceli Momin RN Position: S RN Member Role: Primary Care Nurse Care Team Related Persons Name: KIKE WEBB Address: [address] [address] Name: EDEN MELCHOR Address: [place] [address]
--- OUTSIDE RECORDS SUMMARY | 2023-02-26 19:09 | XMS_ITS | Continuity of Care Document ---
Author Name Unknown Organization [facility] Address [address] [place] [address] [address], [address] [place] [address]- Care Team Providers Care Hogshead Wrecker Name Role Phone Negra MACIEL, Kye Apple Primary Care Physician [place] [facility] [place] 09/26/22 [facility] [address] [place] [address], [address] [place], [place] [address] Attending Physician: Not on Staff, Attending MD Allergies, Adverse Reactions, Alerts No Known Allergies [...] 13:00:40 EDT Start Date: 06/04/19 Status: Ordered metoprolol 25 mg oral tablet 12.5 mg, 0.5, tablet, By Mouth, Every 12 hours, # 30 tablet, Refills 0, Tot. Refills 0, Maintenance, 08/20/19 13:22:00 EST, Print Requisition Start Date: 08/20/19 Status: Ordered Nortriptyline = 50 mg, By Mouth, Daily at bedtime, 0 Refills, Maintenance, 06/04/19 13:00:58 EDT Start Date: 06/04/19 Status: Ordered Trazodone = 100 mg, By Mouth, Daily at bedtime, 0 Refills, Maintenance, 06/04/19 13:01:10 EDT Start Date: 06/04/19 Status: Ordered Venlafaxine = 150 mg, By Mouth, Daily in AM, 0 Refills, Maintenance, 06/04/19 13:00:26 EDT Start Date: 06/04/19 Status: Ordered Vitamin B12 = 1,000 mcg, By Mouth, Daily in AM, 0 Refills, Maintenance, 06/04/19 13:01:48 EDT Start Date: 06/04/19 Status: Ordered Vitamin D3 1 tablet, By [...] cancer of right lower lobe of lung ([id number]) Confirmed 08/17/19 Active 11 ppd x 50 yrs Vital Signs Most recent to oldest [Reference Range]: 1 Height 157.48 cm (09/19/22 9:58 AM) Weight 53.4 kg (09/19/22 9:58 AM) Oxygen Saturation [94-100 %] 95 % (09/19/22 9:58 AM) Pulse Rate [55-90 bpm] 67 bpm (09/19/22 9:58 AM) Body Mass Index [18.5-24.99 kg/m2] 21.53 kg/m2 (09/19/22 9:58 AM) Blood Pressure [90-138/55-84 mm Hg] 102/ 60mm Hg (09/19/22 9:58 AM) Respiratory Rate [16-30 br/min] 18 br/mi n (09/19/22 9:58 AM) Temperature [96.8-100.4 DegF] 96.2 DegF *L* (09/19/22 9:58 AM) Mode of Delivery (Oxygen) Room air (09/19/22 9:58 AM) Blood pressure sites Arm, left (09/19/22 9:58 AM) Temperature Route Temporal (09/19/22 9:58 AM) Weight Obtained Via Standing scale (09/19/22 9:58 AM) Social History Social History Type Response Smoking Status 10 or more cigarette s (1/2 pack or more)/day in last 30 days entered on: 09/19/22 Sex Patient Care team information Care Team Personnel Name: Nasrin Sutton RN Position: [facility] RN Member Role: Primary Care Nurse Name: Kye Omer MD Position: [facility] Outreach Member Role: PCP Address: Address: [address] [place] [id number] Name: Parul Howard RN Position: S RN Member Role: Primary Care Nurse Name: Araceli Momin RN Position: [facility] RN Member Role: Primary Care Nurse Care Team Related Persons Name: KIKE WEBB Address: home [address] [place] [id number] Name: EDEN MELCHOR Address: [place] [address]
--- OUTSIDE RECORDS SUMMARY | 2023-02-26 19:09 | XMS_ITS | Continuity of Care Document ---
Author Name Unknown Organization [facility] Address [address] [facility] [address] [place] [address]- Care Team Providers Care Administrative Support Specialist Name Role Phone Negra MACIEL, Kye Apple Primary Care Physician Encounter 09/05/22 - 09/12/22 [facility] [address], [facility] [address] [place] [address]- Attending Physician: Abeba Mccallum NP Admitting Physician: Abeba Mccallum NP Referring Physician: Abeba Mccallum NP Allergies, Adverse Reactions, Alerts No Known Allergies Medications acetaminophen 325 mg oral tablet 975 mg, By Mouth, Every 8 hours, Refills 0, Maintenance, 05/28/20 11:41:00 EDT Start Date: 05/28/20 Status: Ordered Centrum Silver 1 tablet, By Mouth, Daily in AM, 0 Refills, Maintenance, 06/04/19 13:01:55 EDT Start Date: 06/04/19 Status: Ordered chantix 0.5mg tablet 1 tablet = 0.5 mg, By Mouth, 2 times a day, # 56 tablet, 0 Refills, Maintenance, 07/08/19 9:49:56 EST, Tablet Start Date: 07/08/19 Status: Ordered Fish Oil = 1,200 mg, [...] cancer of right lower lobe of lung ([id number]) Confirmed 08/17/19 Active 11 ppd x 50 yrs Results Radiology Reports * Exam Date Time Procedure Performing Provider Status 09/05/22 1:[address] Chest W/ Contrast Cherelle Webb (Verified) Notes: (CT Chest W/ Contrast) Reason For Exam: Other: RESULT: CT Chest W/ Contrast CT Chest W/ Contrast INDICATION: Lung cancer follow-up TECHNIQUE: Helical CT scan of the chest with IV contrast, formatted in 3 planes. 100 cc of Omnipaque 300 was administered intravenously. Weight-based protocol was performed using automatic exposure control. CTDIvol Body: 7.33 mGy, DLP Body: 255 mGy*cm. COMPARISON: 02/26/2022. FINDINGS: [employer] Mechanic view findings, lines and tubes: None. Trachea and airways: Patent without evidence of tracheal or endobronchial lesion. Lungs and pleura: Status post right lower lobectomy. Trace right pleural effusion. Mild subpleural reticulation throughout both lungs, similar to prior. Unchanged 3 mm solid left upper lobe nodule. No new or enlarging nodule. No left pleural effusion. No pneumothorax. Mediastinum and emelina: No mass or hematoma. No mediastinal or hilar lymphadenopathy. No esophageal abnormality. Heart: Heart is normal in size. No pericardial effusion. Aorta: Mild vascular calcification but no aneurysm. Pulmonary arteries: Normal caliber. No evidence of pulmonary embolism on this study performed without angiographic technique. Chest wall soft tissues: No acute abnormality. Diaphragm: Intact. Upper abdomen: Unchanged cyst in the left hepatic lobe. Mild left adrenal thickening without discrete nodule, similar to prior. Bones: No acute abnormality. Degenerative changes of the spine. IMPRESSION: No significant change. No evidence of recurrent lung cancer. WSN: [id number] Ordering Physician: Abeba Mccallum Dictated By: Dequan Jovel MD Dictated Date/Time: 09/05/22 2:22 pm Reviewed By: Dequan Jovel MD Signed By: Dequan Jovel MD Signed Date/Time: 09/05/22 2:22 pm Transcribed By: SANYA Transcribed Date/Time: 09/05/22 2:16 pm Social History Social History Type Response Tobacco Use: Pt. has smoked 1 package of cigarettes for the last 50 years per pt.. Type: Cigarettes. Tobacco use times per day: 1 package of cigarettes per pt. = patient. 49 Number of years:. Total pack years: 1. Sex CT Chest W contrast IV * [facility] , CIS S: TRANSCRIBE Dequan Jovel MD: VERIFY Event Display: Result: Authored Date: [id number] CT Chest W/ Contrast INDICATION: Lung cancer follow-up TECHNIQUE: Helical CT scan of the chest with IV contrast, formatted in 3 planes. 100 cc of Omnipaque 300 was administered intravenously. Weight-based protocol was performed using automatic exposure control. CTDIvol Body: 7.33 mGy, DLP Body: 255 mGy*cm. COMPARISON: 02/26/2022. FINDINGS: [employer] Mechanic view findings, lines and tubes: None. Trachea and airways: Patent without evidence of tracheal or endobronchial lesion. Lungs and pleura: Status post right lower lobectomy. Trace right pleural effusion. Mild subpleural reticulation throughout both lungs, similar to prior. Unchanged 3 mm solid left upper lobe nodule. No new or enlarging nodule. No left pleural effusion. No pneumothorax. Mediastinum and emelina: No mass or hematoma. No mediastinal or hilar lymphadenopathy. No esophageal abnormality. Heart: Heart is normal in size. No pericardial effusion. Aorta: Mild vascular calcification but no aneurysm. Pulmonary arteries: Normal caliber. No evidence of pulmonary embolism on this study performed without angiographic technique. Chest wall soft tissues: No acute abnormality. Diaphragm: Intact. Upper abdomen: Unchanged cyst in the left hepatic lobe. Mild left adrenal thickening without discrete nodule, similar to prior. Bones: No acute abnormality. Degenerative changes of the spine. IMPRESSION: No significant change. No evidence of recurrent lung cancer. WSN: [id number] Ordering Physician: Abeba Mccallum Dictated By: Dequan Jovel MD Dictated Date/Time: 09/05/22 2:22 pm Reviewed By: Dequan Jovel MD Signed By: Dequan Jovel MD Signed Date/Time: 09/05/22 2:22 pm Transcribed By: SANYA Transcribed Date/Time: 09/05/22 2:16 pm Patient Care team information Care Team Personnel Name: Nasrin Sutton RN Position: S RN Member Role: Primary Care Nurse Name: Kye Omer MD Position: S Outreach Member Role: PCP Address: Address: [address] [place] [address]- Name: Parul Howard RN Position: S RN Member Role: Primary Care Nurse Name: Araceli Momin RN Position: S RN Member Role: Primary Care Nurse Care Team Related Persons Name: YANI WEBBE Address: [address] [address] Name: EDEN MELCHOR Address: [place] [address]
--- OUTSIDE RECORDS SUMMARY | 2023-02-26 19:09 | XMS_ITS | Continuity of Care Document ---
Author Name Unknown Organization [facility] Address [address] [place] [address] [address], [address] [place] [address]- Care Team Providers Care Brush Head Maker Name Role Phone Negra MACIEL, Kye Apple Primary Care Physician En[place] [facility] [place]): 12/18/22 - 12/25/22 [facility] Surgery [address] [place] [address], [address] [place], [place] [address] Attending Physician: Not on Staff, Attending MD [...] cancer of right lower lobe of lung ([id number]) Confirmed 08/17/19 Active 11 ppd x 50 yrs Vital Signs Most recent to oldest [Reference Range]: 1 Height 157.48 cm (12/18/22 9:03 AM) Weight 51.6 kg (12/18/22 9:03 AM) Oxygen Saturation [94-100 %] 94 % (12/18/22 9:03 AM) Pulse Rate [55-90 bpm] 66 bpm (12/18/22 9:03 AM) Body Mass Index [18.5-24.99 kg/m2] 20.81 kg/m2 (12/18/22 9:03 AM) Blood Pressure [90-138/55-84 mm Hg] 118/ 60mm Hg (12/18/22 9:03 AM) Temperature [96.8-100.4 DegF] 98.0 DegF (12/18/22 9:03 AM) Mode of Delivery (Oxygen) Room air (12/18/22 9:03 AM) Blood pressure sites Arm, right (12/18/22 9:03 AM) Temperature Route Temporal (12/18/22 9:03 AM) Weight Obtained Via Standing scale (12/18/22 9:03 AM) Social History Social History Type Response Smoking Status 10 or more cigarette s (1/2 pack or more)/day in last 30 days entered on: 09/19/22 Sex Patient Care team information Care Team Personnel Name: Nasrin Sutton RN Position: S RN Member Role: Primary Care Nurse Name: Kye Omer MD Position: S Outreach Member Role: PCP Address: Address: [address] [place] [address] [id number] Name: Parul Howard RN Position: S RN Member Role: Primary Care Nurse Name: Araceli Momin RN Position: S RN Member Role: Primary Care Nurse Care Team Related Persons Name: KIKE WEBB Address: home [address] [place] [id number] Name: EDEN MELCHOR Address: [place] [address]
== END 2023-02-26 19:13 | disposition left against medical advice (07) ==
PROVIDERS: Physician Assistant; Emergency Provider Emergency Medicine; PCP Physician Assistant
DX: R53.1 Weakness (principal); R51.9 Headache, unspecified; I10 Essential (primary) hypertension; F41.1 Generalized anxiety disorder; F10.21 Alcohol dependence, in remission; C34.90 Malignant neoplasm of unspecified part of unspecified bronchus or lung
CPT/HCPCS: 36415; 70450; 71046; 80053; 81001; 83690; 84484; 85025; 85610; 85730; 93005; 99283; 99284

== ENCOUNTER → 2023-02-26 14:21 | Outpatient (BNV) | payer MEDICARE, SELFPAY | PROVIDERS: Emergency Provider Emergency Medicine; PCP Physician Assistant; Visit Provider Internal Medicine Cardiovascular Disease | DX: R42 Dizziness and giddiness (principal) | CPT/HCPCS: 93010 ==

== ENCOUNTER 2023-04-15 15:57 | Outpatient (AMB) | payer MEDICARE, SELFPAY ==
--- NOTE | 2023-04-15 14:35 | A.OFFPSYCH_ITS ---
Intake Intake Visit Reasons: depression Allergies No Known Allergies [No Known Allergies*] Allergy (Verified 02/26/23 14:18) Medication List - Last Reconciled 04/15/23 by Lambert Covington MD clonidine HCl 0.1 mg PO BID lisinopril 5 mg PO DAILY oxcarbazepine 150 mg PO TID trazodone 50 - 100 mg (0.5 - 1 x 100 mg) PO BEDTIME PRN venlafaxine ER 75 mg PO DAILY HPI- Psychiatric Chief Complaint: depression HPI Narrative: Patient has been quite anxious ruminating feels overwhelmed much of time difficulty concentrating and functioning. Gets easily overwhelmed by technology in multiple responsibilities. Denies SI reportedly getting help at home Past Psychiatric History: Patient has had periods of suicidal depression patient has been seeing this financial writer for psychiatric follow-up for many years 150 mg daily higher doses were not effective clonidine half to 1 tab daily or half tab b.i.d. was on Depakote ER has had side effects. Gabapentin 300 mg morning 600 bedtime trazodone 100 at bedtime. Has not tolerated multiple SSRI trials mirtazapine Seroquel Anafranil and nortriptyline Patient has had periods of suicidal depression patient has been seeing this financial writer for psychiatric follow- up for many year 150 mg daily higher doses were not effective clonidine half to 1 tab daily or half tab b.i.d. was on Depakote ER has had side effects. Mental Status Exam Mental Status Exam Narrative: Mental Status Exam Narrative: Appearance: Casually dressed stressed and anxious in appearance Behavior: Cooperative psychomotor: Within normal limits Speech: Normal volume and prosody Thought proccess some perseveration Thought content: Feels overwhelmed hopeless helpless Mood: depressed hopeless helpless Affect: Appropriate to mood SI:denies HI:denies VH/AH:none Delusions: None Insight/judgment: Impaired judgment difficulty making decisions have recommended assisted living Memory/cog: Intact Assessment and Plan Assessment & Plan (1) Major depressive disorder, recurrent severe without psychotic features: Status: Acute Code(s): F33.2 - Major depressive disorder, recurrent severe without psychotic features (2) ADD (attention deficit disorder): Status: Acute Code(s): F98.8 - Other specified behavioral and emotional disorders with onset usually oc curring in childhood and adolescence (3) Generalized anxiety disorder: Status: Acute Code(s): F41.1 - Generalized anxiety disorder Plan Urge review loose of oxcarbazepine 150 t.i.d. seems to be helpful for anxiety off-label clonidine 0.1 b.i.d. 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 Counseling provided to the patient/caregiver as outlined below. Addressed patient/caregiver concerns regarding current medication regime including effective adherence. Addressed patient/caregiver concerns regarding diagnosis and prognosis including accuracy of diagnosis, prognosis over time, impact of diagnosis. Addressed patient/caregiver concerns regarding impact of recent stressors. [facility] Medical History (Updated 05/04/23 @ 12:15 by Joseph Ye) Alcohol use disorder, severe, in sustained remission Essential hypertension Primary lung cancer Generalized anxiety disorder Social History: Patient lives alone owned her own house retired history of ADD has always felt like the black sheep of the family Substance History: Past history of alcohol abuse has been sober and regularly goes to meetings Trauma History: past Coding Level of Care Code Est Pt Level 4 (13429) Diagnoses Major depressive disorder, recurrent severe without psychotic features F33.2 ADD (attention deficit disorder) F98.8 Generalized anxiety disorder F41.1
== END 2023-04-15 15:57 | disposition home or self-care (01) ==
LOC: HO.HOP 15:57
PROVIDERS: PCP Physician Assistant; Visit Provider Psychiatry & Neurology Psychiatry
DX: F33.2 Major depressive disorder, recurrent severe without psychotic features (principal); F98.8 Other specified behavioral and emotional disorders with onset usually occurring in childhood and adolescence; F41.1 Generalized anxiety disorder
CPT/HCPCS: 99214

== ENCOUNTER → 2023-04-15 15:57 | Outpatient (BNVA) | payer MEDICARE, SELFPAY | PROVIDERS: PCP Physician Assistant; Visit Provider Psychiatry & Neurology Psychiatry | DX: F33.2 Major depressive disorder, recurrent severe without psychotic features (principal); F98.8 Other specified behavioral and emotional disorders with onset usually occurring in childhood and adolescence; F41.1 Generalized anxiety disorder; Z79.899 Other long term (current) drug therapy | CPT/HCPCS: 99212 ==

== ENCOUNTER 2023-05-20 11:35 | Outpatient (AMB) | payer MEDICARE, SELFPAY ==
--- NOTE | 2023-05-20 12:10 | MHC.OFFVISPS ---
Intake Intake Visit Reasons: depression Allergies No Known Allergies [No Known Allergies*] Allergy (Verified 02/26/23 14:18) HPI- Psychiatric Chief Complaint: depression HPI Narrative: Pt feeling better vol wk going to [employer] feels more grounded taking mirtazapine 7.5 mg phq 9 3 gracy 4. Seems more grounded less reactive patient has been doing volunteer work which she generally enjoys. Continues to have intermittent difficulty with dealing with technology but more tolerant less reactive in her irritable. Past Psychiatric History: Patient has had periods of suicidal depression patient has been seeing this engineering technical writer for psychiatric follow-up for many years 150 mg daily higher doses were not effective clonidine half to 1 tab daily or half tab b.i.d. was on Depakote ER has had side effects. Gabapentin 300 mg morning 600 bedtime trazodone 100 at bedtime. Has not tolerated multiple SSRI trials mirtazapine Seroquel Anafranil and nortriptyline Patient has had periods of suicidal depression patient has been seeing this engineering technical writer for psychiatric follow-up for many year 150 mg daily higher doses were not effective clonidine half to 1 tab daily or half tab b.i.d. was on Depakote ER has had side effects. Mental Status Exam Mental Status Exam Narrative: Mental Status Exam Narrative: Appearance: Casually dressed stressed and anxious in appearance Behavior: Cooperative psychomotor: Within normal limits Speech: Normal volume and prosody Thought proccess some perseveration Thought content: Less in the way of catastrophic thinking Mood: Some anxiety Affect: Appropriate to mood SI:denies HI:denies VH/AH:none Delusions: None Insight/judgment: improved Memory/cog: Intact Assessment and Plan Assessment & Plan (1) Major depressive disorder, recurrent severe without psychotic features: Status: Acute Code(s): F33.2 - Major depressive disorder, recurrent severe without psychotic features (2) ADD (attention deficit disorder): Status: Acute Code(s): F98.8 - Other specified behavioral and emotional disorders with onset usually occurring in childhood and adolescence (3) Generalized anxiety disorder: Status: Acute Code(s): F41.1 - Generalized anxiety disorder Plan Patient has been doing much better on a combination Effexor 75 mg in the morning mirtazapine 7.5 mg has been helpful along with Trileptal 150 b.i.d.. Patient with significant improvement a lot of this also related to having her house appraised seeing some light at the end of tunnel doing volunteer work and going to [employer] and feeling connection with some other people at the [employer] feels much more grounded Medications: New mirtazapine 7.5 mg PO BEDTIME 30 tabs 2RF Changed From oxcarbazepine 150 mg PO TID 90 tabs 1RF To oxcarbazepine 150 mg PO BID 60 tabs 2RF Counseling and coordination of Care Medication management counseling: Effectiveness Diagnosis and Prognosis Counseling: Impact of diagnosis on life functions, Problematic behaviors secondary to diagnosis and Adequacy of current interventions Details: I spent [38] minutes reviewing the record, seeing the patient and documenting in the medical record. Counseling provided to the patient/caregiver as outlined below. Addressed patient/caregiver concerns regarding current medication regime including effective adherence. Addressed patient/caregiver concerns regarding diagnosis and prognosis including accuracy of diagnosis, prognosis over time, impact of diagnosis. Addressed patient/caregiver concerns regarding impact of recent stressors. [facility] Medical History (Updated 05/04/23 @ 12:15 by Joseph Ye) Alcohol use disorder, severe, in sustained remission Essential hypertension Primary lung cancer Generalized anxiety disorder Social History: Patient lives alone owned her own house retired history of ADD has always felt like the black sheep of the family Substance History: Past history of alcohol abuse has been sober and regularly goes to meetings Trauma History: past Coding Level of Care Code Est Pt Level 3 (86500) Therapy 30m w/E&M (14227) Diagnoses Major depressive disorder, recurrent severe without psychotic features F33.2 ADD (attention deficit disorder) F98.8 Generalized anxiety disorder F41.1
== END 2023-05-20 12:18 | disposition home or self-care (01) ==
LOC: HO.HOP 11:35
PROVIDERS: PCP Physician Assistant; Visit Provider Psychiatry & Neurology Psychiatry
DX: F33.2 Major depressive disorder, recurrent severe without psychotic features (principal); F98.8 Other specified behavioral and emotional disorders with onset usually occurring in childhood and adolescence; F41.1 Generalized anxiety disorder
CPT/HCPCS: 90833; 99213

== ENCOUNTER → 2023-05-20 11:35 | Outpatient (BNVA) | payer MEDICARE, SELFPAY | PROVIDERS: PCP Physician Assistant; Visit Provider Psychiatry & Neurology Psychiatry | DX: F33.2 Major depressive disorder, recurrent severe without psychotic features (principal); F98.8 Other specified behavioral and emotional disorders with onset usually occurring in childhood and adolescence; F41.1 Generalized anxiety disorder | CPT/HCPCS: 90833; 99212 ==

== ENCOUNTER 2023-07-10 11:45 | Outpatient (AMB) | payer MEDICARE, SELFPAY ==
--- NOTE | 2023-07-10 13:02 | MHC.OFFVISPS ---
Intake Intake Visit Reasons: depression Allergies No Known Allergies [No Known Allergies*] Allergy (Verified 02/26/23 14:18) HPI- Psychiatric Chief Complaint: depression HPI Narrative: Patient has again cycled into being increasingly depressed hopeless helpless and ruminating. The patient had an interaction with her family again in which she again felt rejected demean not understood. She had generally been doing better on oxcarbazepine mirtazapine low-dose Effexor no SI remain sober Past Psychiatric History: Patient has had periods of suicidal depression patient has been seeing this feature writer for psychiatric follow-up for many years 150 mg daily higher doses were not effective clonidine half to 1 tab daily or half tab b.i.d. was on Depakote ER has had side effects. Gabapentin 300 mg morning 600 bedtime trazodone 100 at bedtime. Has not tolerated multiple SSRI trials mirtazapine Seroquel Anafranil and nortriptyline Patient has had periods of suicidal depression patient has been seeing this feature writer for psychiatric follow-up for many year 150 mg daily higher doses were not effective clonidine half to 1 tab daily or half tab b.i.d. was on Depakote ER has had side effects. Mental Status Exam Mental Status Exam Narrative: Mental Status Exam Narrative: Appearance: Casually dressed stressed and anxious in appearance Behavior: Cooperative psychomotor: Within normal limits Speech: Normal volume and prosody Thought proccess some perseveration Thought content: Less in the way of catastrophic thinking Mood: Some anxiety Affect: Appropriate to mood SI:denies HI:denies VH/AH:none Delusions: None Insight/judgment: improved Memory/cog: Intact Assessment and Plan Assessment & Plan (1) Major depressive disorder, recurrent severe without psychotic features: Status: Acute Code(s): F33.2 - Major depressive disorder, recurrent severe without psychotic features (2) ADD (attention deficit disorder): Status: Acute Code(s): F98.8 - Other specified behavioral and emotional disorders with onset usually occurring in childhood and adolescence (3) Generalized anxiety disorder: Status: Acute Code(s): F41.1 - Generalized anxiety disorder Plan Start L methyl folate 7.5 mg increase mirtazapine to 15 mg at bedtime attempting referral to EMDR therapist Medications: Discontinued trazodone Discontinued Reason: Doctor's Order 50 - 100 mg (0.5 - 1 x 100 mg) PO BEDTIME PRN 30 tabs 2RF insomnia Orders: Orders Comprehensive Met. Panel 07/10/23 F33.2 - Major depressive disorder, recurrent severe without psychotic features, F98.8 - Other specified behavioral and emotional disorders with onset usually occurring in childhood and adolescence, F41.1 - Generalized anxiety disorder, I10 - Essential (primary) hypertension UA and rflx microscopic 07/10/23 F33.2 - Major depressive disorder, recurrent severe without psychotic features, F98.8 - Other specified behavioral and emotional disorders with onset usually occurring in childhood and adolescence, F41.1 - Generalized anxiety disorder, I10 - Essential (primary) hypertension TSH reflex Free T4 07/10/23 F33.2 - Major depressive disorder, recurrent severe without psychotic features, F98.8 - Other specified behavioral and emotional disorders with onset usually occurring in childhood and adolescence, F41.1 - Generalized anxiety disorder, I10 - Essential (primary) hypertension Complete Blood Count Auto Diff 07/10/23 F33.2 - Major depressive disorder, recurrent severe without psychotic features, F98.8 - Other specified behavioral and emotional disorders with onset usually occurring in childhood and adolescence, F41.1 - Generalized anxiety disorder, I10 - Essential (primary) hypertension Counseling and coordination of Care Pt. Self Management counseling: Breathing, Sleep hygiene and Cognitive restructuring Medication management counseling: Effectiveness and Side effects Details-Diagnosis/Prognosis counseling: Extensive discussion on the limitations of medication patient with clear triggers that continually sabotage her mood Details: I spent [] minutes reviewing the record, seeing the patient and documenting in the medical record. Counseling provided to the patient/caregiver as outlined below. Addressed patient/caregiver concerns regarding current medication regime including effective adherence. Addressed patient/caregiver concerns regarding diagnosis and prognosis including accuracy of diagnosis, prognosis over time, impact of diagnosis. Addressed patient/caregiver concerns regarding impact of recent stressors. [facility] Medical History (Updated 05/04/23 @ 12:15 by Joseph Ye) Alcohol use disorder, severe, in sustained remission Essential hypertension Primary lung cancer Generalized anxiety disorder Social History: Patient lives alone owned her own house retired history of ADD has always felt like the black sheep of the family Substance History: Past history of alcohol abuse has been sober and regularly goes to meetings Trauma History: past Coding Level of Care Code Est Pt Level 3 (77803) Therapy 30m w/E&M (14542) Diagnoses Major depressive disorder, recurrent severe without psychotic features F33.2 ADD (attention deficit disorder) F98.8 Generalized anxiety disorder F41.1
== END 2023-07-10 17:07 | disposition home or self-care (01) ==
LOC: HO.HOP 11:45
PROVIDERS: PCP Physician Assistant; Visit Provider Psychiatry & Neurology Psychiatry
DX: F33.2 Major depressive disorder, recurrent severe without psychotic features (principal); F98.8 Other specified behavioral and emotional disorders with onset usually occurring in childhood and adolescence; F41.1 Generalized anxiety disorder
CPT/HCPCS: 90833; 99213

== ENCOUNTER → 2023-07-10 11:45 | Outpatient (BNVA) | payer MEDICARE, SELFPAY | PROVIDERS: PCP Physician Assistant; Visit Provider Psychiatry & Neurology Psychiatry | DX: F33.2 Major depressive disorder, recurrent severe without psychotic features (principal); F98.8 Other specified behavioral and emotional disorders with onset usually occurring in childhood and adolescence; F41.1 Generalized anxiety disorder | CPT/HCPCS: 90833; 99212 ==

== ENCOUNTER 2023-08-01 14:08 | Outpatient (AMB) | payer MEDICARE, SELFPAY ==
--- NOTE | 2023-08-01 13:46 | MHC.OFFVISPS ---
Intake Intake Visit Reasons: depression Allergies No Known Allergies [No Known Allergies*] Allergy (Verified 02/26/23 14:18) HPI- Psychiatric Chief Complaint: depression HPI Narrative: pt has been anxious ruminating overwhelmed a lot of this relates to her difficulty dealing with technology that is overwhelming and frustrating and triggers feelings of self denigration triggering old feelings. Patient's mood can vary periods of depression and anxiety particularly when dealing with her family that also tends to trigger old wounds Past Psychiatric History: Patient has had periods of suicidal depression patient has been seeing this va underwriter for psychiatric follow-up for many years 150 mg daily higher doses were not effective clonidine half to 1 tab daily or half tab b.i.d. was on Depakote ER has had side effects. Gabapentin 300 mg morning 600 bedtime trazodone 100 at bedtime. Has not tolerated multiple SSRI trials mirtazapine Seroquel Anafranil and nortriptyline Patient has had periods of suicidal depression patient has been seeing this va underwriter for psychiatric follow-up for many year 150 mg daily higher doses were not effective clonidine half to 1 tab daily or half tab b.i.d. was on Depakote ER has had side effects. Mental Status Exam Mental Status Exam Narrative: Mental Status Exam Narrative: Appearance: Casually dressed stressed and anxious in appearance Behavior: Cooperative psychomotor: Some mouth puckering noted Speech: Normal volume and prosody Thought proccess perseveration Thought content: catastrophic thinking regarding her functioning periods of self loathing and rumination Mood: anxiety depressed Affect: Appropriate to mood SI:denies HI:denies VH/AH:none Delusions: None Insight/judgment: Has insight into how childhood issues can easily get triggered from her family upbringing Difficulty using this perspective and getting distance from it lack of self acceptance Memory/cog: Intact Assessment and Plan Assessment & Plan (1) Major depressive disorder, recurrent severe without psychotic features: Status: Acute Code(s): F33.2 - Major depressive disorder, recurrent severe without psychotic features (2) ADD (attention deficit disorder): Status: Acute Code(s): F98.8 - Other specified behavioral and emotional disorders with onset usually occurring in childhood and adolescence (3) Generalized anxiety disorder: Status: Acute Code(s): F41.1 - Generalized anxiety disorder Plan Has gone out on and off mirtazapine concerned about weight gain patient will discontinue. Was use for help with the sleep in augmentation for agitated depression continue clonidine continue venlafaxine although patient remains symptomatic had done much worse with Effexor discontinued Reportedly recent chest CT scan was negative for recurrence of lung cancer Medications: Refilled clonidine HCl 0.1 mg PO BID 180 tabs 0RF Discontinued mirtazapine Discontinued Reason: Doctor's Order 7.5 mg PO BEDTIME 30 tabs 2RF Counseling and coordination of Care Pt. Self Management counseling: Mindfulness, Cognitive restructuring and Organization skills and time management Details-Self Mgmt counseling: Discussion regarding patient's samaritan and spiritual beliefs and weighs T use that for grounding and diminishing self punishment in living thought she would be better off but denies active plan or intent again discussed possibility to move out of her house which is an older home and can be overwhelming to manage Medication management counseling: Effectiveness and Side effects Diagnosis and Prognosis Counseling: Impact of diagnosis on life functions, Problematic behaviors secondary to diagnosis and Adequacy of current interventions Details-Diagnosis/Prognosis counseling: Could consider Seroquel or olanzapine patient does have some mouth puckering would balance pros and cons related to question of tardive dyskinesia Question benefit of S ketamine Details: I spent [38] minutes reviewing the record, seeing the patient and documenting in the medical record. Counseling provided to the patient/caregiver as outlined below. Addressed patient/caregiver concerns regarding current medication regime including effective adherence. Addressed patient/caregiver concerns regarding diagnosis and prognosis including accuracy of diagnosis, prognosis over time, impact of diagnosis. Addressed patient/caregiver concerns regarding impact of recent stressors. [facility] Medical History (Updated 05/04/23 @ 12:15 by Joseph Ye) Alcohol use disorder, severe, in sustained remission Essential hypertension Primary lung cancer Generalized anxiety disorder Social History: Patient lives alone owned her own house retired history of ADD has always felt like the black sheep of the family Substance History: Past history of alcohol abuse has been sober and regularly goes to meetings Trauma History: past Coding Level of Care Code Est Pt Level 3 (23334) Therapy 30m w/E&M (64653) Diagnoses Major depressive disorder, recurrent severe without psychotic features F33.2 ADD (attention deficit disorder) F98.8 Generalized anxiety disorder F41.1
--- OUTSIDE RECORDS SUMMARY | 2023-08-01 14:10 | XMS_ITS | Continuity of Care Document ---
Author Name Unknown Organization [facility] Address [address] [place] [address] cj, [address] [place] [address]- Care Team Providers Care Roustabout Crew Pusher Name Role Phone Negra MACIEL, Kye Apple Primary Care Physician [place] [facility] [place]/23 [facility] Thoracic Surgery [address] [place] [address], [address] [place], [place] [address] Attending Physician: Alessio CEE, Abeba Perez Allergies, Adverse Reactions, Alerts No Known Allergies [...] cancer of right lower lobe of lung ([id number]) Confirmed 08/17/19 Active 11 ppd x 50 yrs Vital Signs Most recent to oldest [Reference Range]: 1 Height 157.48 cm (06/20/23 10:29 AM) Weight 54.4 kg (06/20/23 10:29 AM) Oxygen Saturation [94-100 %] 99 % (06/20/23 10:29 AM) Pulse Rate [55-90 bpm] 66 bpm (06/20/23 10:29 AM) Body Mass Index [18.5-24.99 kg/m2] 21.94 kg/m2 (06/20/23 10:29 AM) Blood Pressure [90-138/55-84 mm Hg] 112/ 62mm Hg (06/20/23 10:29 AM) Temperature [96.8-100.4 DegF] 97.1 DegF (06/20/23 10:29 AM) Mode of Delivery (Oxygen) Room air (06/20/23 10:29 AM) Blood pressure sites Arm, left (06/20/23 10:29 AM) Temperature Route Temporal (06/20/23 10:29 AM) Weight Obtained Via Standing scale (06/20/23 10:29 AM) Social History Social History Type Response Smoking Status 10 or more cigarette s (1/2 pack or more)/day in last 30 days entered on: 09/19/22 Sex Patient Care team information Care Team Personnel Name: Nasrin Sutton RN Position: S RN Member Role: Primary Care Nurse Name: Kye Omer MD Position: S Outreach Member Role: PCP Address: Address: [address] [place] [id number] Name: Parul Howard RN Position: S RN Member Role: Primary Care Nurse Name: Araceli Momin RN Position: S RN Member Role: Primary Care Nurse Care Team Related Persons Name: KIKE WEBB Address: home [address] [place] [id number] Name: EDEN MELCHOR Address: [place] [address]
--- OUTSIDE RECORDS SUMMARY | 2023-08-01 14:11 | XMS_ITS | Continuity of Care Document ---
Author Name Unknown Organization [facility] Address [address] [facility] [place] [address]- Care Team Providers Care Retail Business Development Manager Name Role Phone Kye Omer MD Primary Care Physician Encounter 06/12/23 - 06/19/23 [facility] [address], [facility] [address] [place] [address]- Attending Physician: Abeba Mccallum NP Admitting Physician: [...] cancer of right lower lobe of lung ([id number]) Confirmed 08/17/19 Active 11 ppd x 50 yrs Results Radiology Reports * Exam Date Time Procedure Performing Provider Status 06/12/23 12:[address] Chest W/ Contrast Cherelle Webb [facility] (Verified) Notes: (CT Chest W/ Contrast) Reason For Exam: routine lung cancer survaillance;Other: RESULT: CT Chest W/ Contrast CT Chest W/ Contrast INDICATION: Reason: Other:; routine lung cancer surveillance; Order Comment: PLEASE BOOK WITHIN 2WKS OF THORACIC APPT 06 20 2023 *PT PREFERS [place] FOR THE TESTING LOCATION TECHNIQUE: Helical CT scan of the chest with IV contrast, formatted in 3 planes. 100 cc of Omnipaque 300 was administered intravenously. Weight-based protocol was performed using automatic exposure control. CTDIvol Body: 7.76 mGy, DLP Body: 277 mGy*cm. COMPARISON: 12/11/2022. FINDINGS: Wire Machine Operator view findings, lines and tubes: None. Trachea and airways: Patent without evidence of tracheal or endobronchial lesion. Lungs and pleura: Status post right lower lobectomy. Paraseptal emphysema, most prominent in the right upper lobe. Mild upper lobe predominant centrilobular emphysema. Unchanged right lung apex 0.4 cm nodule (image 19) and left upper lobe lingula segment 0.2 cm nodule (image 37) on series 3. No effusion or pneumothorax. Mediastinum and emelina: No mass or hematoma. Unchanged mildly prominent right hilar lymph node with short axis diameter 1 cm. Mild diffuse esophageal wall thickening. Normal thyroid. Heart: Heart is normal in size. No pericardial effusion. Mild coronary artery calcification. Aorta: Moderate vascular calcification but no aneurysm. Pulmonary arteries: Normal caliber. Moderate respiratory motion artifact decreases sensitivity, butthere is no evidence of pulmonary embolism on this study performed without angiographic technique. Chest wall soft tissues: No acute abnormality. Diaphragm: Intact. Upper abdomen: Unchanged low-attenuation 1.1 cm lesion in segment 2. Unchanged focal calcification in the subcapsular left hepatic lobe. Bones: Unchanged mild compression deformity at T7, T10 vertebral bodies. No acute abnormality. IMPRESSION: No significant change since prior examination. No evidence for disease progression. I have personally reviewed the images and I agree with this report. WSN: [id number] Ordering Physician: Abeba Mccallum Dictated By: Mathew[Radiology] Jazzmine MACIEL Dictated Date/Time: 06/12/23 1:56 pm Reviewed By: Kye Landrum MD Signed By: Kye Landrum MD Signed Date/Time: 06/12/23 2:01 pm Transcribed By: SANYA Transcribed Date/Time: 06/12/23 1:37 pm Social History Social History Type Response Smoking Status 10 or more cigarette s (1/2 pack or more)/day in last 30 days entered on: 09/19/22 Sex Patient Care team information Care Team Personnel Name: Nasrin Sutton RN Position: S RN Member Role: Primary Care Nurse Name: Kye Omer MD Position: S Outreach Member Role: PCP Address: Address: [address] [place] [id number]- Name: Parul Howard RN Position: S RN Member Role: Primary Care Nurse Name: Araceli Momin RN Position: S RN Member Role: Primary Care Nurse Name: Abeba Mccallum NP Position: S Associate Professional Med Service: Cardiothoracic Surgery Member Role: Referring Physician Address: Address: [address] [place] [address] [address] [facility] [place] [address]- Care Team Related Persons Name: KIKE WEBB Address: home [address] [place] [id number] Name: EDEN MELCHOR Address: [place] [address]
== END 2023-08-01 14:21 | disposition home or self-care (01) ==
LOC: HO.HOP 14:08
PROVIDERS: PCP Physician Assistant; Visit Provider Psychiatry & Neurology Psychiatry
DX: F33.2 Major depressive disorder, recurrent severe without psychotic features (principal); F98.8 Other specified behavioral and emotional disorders with onset usually occurring in childhood and adolescence; F41.1 Generalized anxiety disorder
CPT/HCPCS: 90833; 99213

== ENCOUNTER → 2023-08-01 14:08 | Outpatient (BNVA) | payer MEDICARE, SELFPAY | PROVIDERS: PCP Physician Assistant; Visit Provider Psychiatry & Neurology Psychiatry | DX: F33.2 Major depressive disorder, recurrent severe without psychotic features (principal); F98.8 Other specified behavioral and emotional disorders with onset usually occurring in childhood and adolescence; F41.1 Generalized anxiety disorder | CPT/HCPCS: 90833; 99212 ==

== ENCOUNTER 2023-09-02 15:09 | Outpatient (AMB) | payer MEDICARE, SELFPAY ==
--- OUTSIDE RECORDS SUMMARY | 2023-09-02 15:12 | XMS_ITS | Continuity of Care Document ---
Author Name Unknown Organization [facility] Thor[facility] Address [address] [place] [address] [address], [address] [place] [address]- Care Team Providers Care Absorption And Adsorption Engineer Name Role Phone Negra MACIEL, Kye Apple Primary Care Physician Encounter [facility] [place](s): 07/02/23 - 08/01/23 [facility] Thoracic Surgery [address] [place] [address], [address] [place], [place] [address] Allergies, Adverse Reactions, Alerts No Known Allergies [...] cancer of right lower lobe of lung ([id number]) Confirmed 08/17/19 Active 11 ppd x 50 yrs Social History Social History Type Response Smoking Status 10 or more cigarette s (1/2 pack or more)/day in last 30 days entered on: 09/19/22 Sex Patient Care team information Care Team Personnel Name: Nasrin Sutton RN Position: S RN Member Role: Primary Care Nurse Name: Kye Omer MD Position: S Outreach Member Role: PCP Address: Address: [address] [place] [id number]- Name: Parul Howard RN Position: S RN Member Role: Primary Care Nurse Name: Araceli Momin RN Position: S RN Member Role: Primary Care Nurse Care Team Related Persons Name: KIKE WEBB Address: home [address] [place] [id number] Name: EDEN MELCHOR Address: [place] [address]
--- NOTE | 2023-09-02 16:33 | MHC.OFFVISPS ---
Intake Intake Visit Reasons: depression Allergies No Known Allergies [No Known Allergies*] Allergy (Verified 02/26/23 14:18) HPI- Psychiatric Chief Complaint: depression HPI Narrative: the patient continues to be anxious and ruminating intermittently hopeless helpless and despairing. She does get a lot of support she sees her therapist regularly has other help in her house but is often feeling overwhelmed she does have periods of relative normalcy other periods of intense despair Past Psychiatric History: Patient has had periods of suicidal depression patient has been seeing this typewriter tester for psychiatric follow-up for many years 150 mg daily higher doses were not effective clonidine half to 1 tab daily or half tab b.i.d. was on Depakote ER has had side effects. Gabapentin 300 mg morning 600 bedtime trazodone 100 at bedtime. Has not tolerated multiple SSRI trials mirtazapine Seroquel Anafranil and nortriptyline Patient has had periods of suicidal depression patient has been seeing this typewriter tester for psychiatric follow-up for many year 150 mg daily higher doses were not effective clonidine half to 1 tab daily or half tab b.i.d. was on Depakote ER has had side effects. Mental Status Exam Mental Status Exam Narrative: Mental Status Exam Narrative: Appearance: Casually dressed stressed and anxious in appearance Behavior: Cooperative psychomotor: Some mouth puckering noted Speech: Normal volume and prosody Thought proccess perseveration Thought content: catastrophic thinking regarding her functioning periods of self loathing and rumination Mood: anxiety depressed Affect: Appropriate to mood SI:denies HI:denies VH/AH:none Delusions: None Insight/judgment: Has insight into how childhood issues can easily get triggered from her family upbringing Difficulty using this perspective and getting distance from it lack of self acceptance ongoing Memory/cog: Intact can lose train of thought Assessment and Plan Assessment & Plan (1) Major depressive disorder, recurrent severe without psychotic features: Status: Acute Code(s): F33.2 - Major depressive disorder, recurrent severe without psychotic features (2) Generalized anxiety disorder: Status: Acute Code(s): F41.1 - Generalized anxiety disorder (3) ADD (attention deficit disorder): Status: Acute Code(s): F98.8 - Other specified behavioral and emotional disorders with onset usually occurring in childhood and adolescence (4) Essential hypertension: Status: Acute Code(s): I10 - Essential (primary) hypertension Plan Increase clonidine to 0.2 mg in the morning 1 aft evening monitor for dizziness hypotension patient's blood pressure today was 160/90 pulse 61 increase oxcarbazepine to 2 in the morning 1 aft Extensive discussion regarding the use of benzodiazepines has had adverse effect from antipsychotics in the past clonazepam 0.25-0.5 daily p.r.n. patient does have an addiction history she has been sober for an extended period of time level of anxiety is such that [employer] is indicated this time patient feels she can manage this and has not abused these meds with this typewriter tester previously nor has she asked for them Has minimal quality of life has failed multiple medication trials antipsychotics contraindicated Medications: New clonazepam 0.25 - 0.5 mg (0.5 - 1 x 0.5 mg) PO DAILY PRN 7 tabs 1RF severe anxiety Changed From oxcarbazepine 150 mg PO BID 60 tabs 2RF To oxcarbazepine 150 mg PO TID 90 tabs 2RF Counseling and coordination of Care Pt. Self Management counseling: Breathing, Med illness tx adherence, Mindfulness and Cognitive restructuring Diagnosis and Prognosis Counseling: Adequacy of current interventions Details: I spent [38] minutes reviewing the record, seeing the patient and documenting in the medical record. Counseling provided to the patient/caregiver as outlined below. Addressed patient/caregiver concerns regarding current medication regime including effective adherence. Addressed patient/caregiver concerns regarding diagnosis and prognosis including accuracy of diagnosis, prognosis over time, impact of diagnosis. Addressed patient/caregiver concerns regarding impact of recent stressors. [facility] Medical History (Updated 05/04/23 @ 12:15 by Joseph Ye) Alcohol use disorder, severe, in sustained remission Essential hypertension Primary lung cancer Generalized anxiety disorder Social History: Patient lives alone owned her own house retired history of ADD has always felt like the black sheep of the family Substance History: Past history of alcohol abuse has been sober and regularly goes to meetings Trauma History: past Coding Level of Care Code Est Pt Level 3 (55623) Therapy 30m w/E&M (34685) Diagnoses Major depressive disorder, recurrent severe without psychotic features F33.2 Generalized anxiety disorder F41.1 ADD (attention deficit disorder) F98.8 Essential hypertension I10
== END 2023-09-02 15:23 | disposition home or self-care (01) ==
LOC: HO.HOP 15:10
PROVIDERS: PCP Physician Assistant; Visit Provider Psychiatry & Neurology Psychiatry
DX: F33.2 Major depressive disorder, recurrent severe without psychotic features (principal); F41.1 Generalized anxiety disorder; F98.8 Other specified behavioral and emotional disorders with onset usually occurring in childhood and adolescence; I10 Essential (primary) hypertension
CPT/HCPCS: 90833; 99213

== ENCOUNTER → 2023-09-02 15:09 | Outpatient (BNVA) | payer MEDICARE, SELFPAY | PROVIDERS: PCP Physician Assistant; Visit Provider Psychiatry & Neurology Psychiatry | DX: F33.2 Major depressive disorder, recurrent severe without psychotic features (principal); F41.1 Generalized anxiety disorder; F98.8 Other specified behavioral and emotional disorders with onset usually occurring in childhood and adolescence; I10 Essential (primary) hypertension | CPT/HCPCS: 99212 ==

== ENCOUNTER 2023-09-17 15:02 | Outpatient (AMB) | payer MEDICARE, SELFPAY ==
--- NOTE | 2023-09-17 14:13 | MHC.OFFVISPS ---
Intake Intake Visit Reasons: depression Allergies No Known Allergies [No Known Allergies*] Allergy (Verified 02/26/23 14:18) HPI- Psychiatric Chief Complaint: depression HPI Narrative: Pt seen in f/u has been extremrly anxious ruminating ,frearful of technology tends to ruminate be very self blaming. Tends to have am anxiety . No si overwhelmed with caring for herself and home. Has failed multiple trials of multiple antidepressants and combinations of antidepressants some help with clonidine oxcarbazepine somewhat helpful Past Psychiatric History: Patient has had periods of suicidal depression patient has been seeing this technical writer and editor for psychiatric follow-up for many years 150 mg daily higher doses were not effective clonidine half to 1 tab daily or half tab b.i.d. was on Depakote ER has had side effects. Gabapentin 300 mg morning 600 bedtime trazodone 100 at bedtime. Has not tolerated multiple SSRI trials mirtazapine Seroquel Anafranil and nortriptyline Patient has had periods of suicidal depression patient has been seeing this technical writer and editor for psychiatric follow-up for many year 150 mg daily higher doses were not effective clonidine half to 1 tab daily or half tab b.i.d. was on Depakote ER has had side effects. Mental Status Exam Mental Status Exam Narrative: Mental Status Exam Narrative: Appearance: Casually dressed stressed and anxious in appearance Behavior: Cooperative psychomotor: Some mouth puckering noted Speech: Normal volume and prosody Thought proccess perseveration Thought content: catastrophic thinking regarding her functioning periods of self loathing and rumination Mood: anxiety depressed Affect: Appropriate to mood SI:denies HI:denies VH/AH:none Delusions: None Insight/judgment: Has insight into how childhood issues can easily get triggered from her family upbringing Difficulty using this perspective and getting distance from it lack of self acceptance ongoing Memory/cog: Intact can lose train of thought Assessment and Plan Assessment & Plan (1) Major depressive disorder, recurrent severe without psychotic features: Status: Acute Code(s): F33.2 - Major depressive disorder, recurrent severe without psychotic features (2) ADD (attention deficit disorder): Status: Acute Code(s): F98.8 - Other specified behavioral and emotional disorders with onset usually occurring in childhood and adolescence (3) Generalized anxiety disorder: Status: Acute Code(s): F41.1 - Generalized anxiety disorder (4) Essential hypertension: Status: Acute Code(s): I10 - Essential (primary) hypertension Plan Patient seen psychiatric follow-up. Patient has periods of anxiety and dysphoria lot of it related to maintaining her house dealing with technology feeling chronic issues of self-esteem and not picking things up quickly enough and then feeling overwhelmed and self-critical lot of this also relates to her family of origin which gets triggered when she is around her sister's she will be going to [place] to visit a couple of friends Trileptal 150 3 times a day continue Effexor clonidine encourage yoga relaxation techniques meditation Adventist prayer daily walks with her combination is helpful in decreasing patient's baseline level anxiety we have also talked about possibility of moving to provide less stress certification Counseling and coordination of Care Pt. Self Management counseling: Breathing, Exercise, Maintenance-social rhythm and Behavior activation Medication management counseling: Effectiveness and Side effects Diagnosis and Prognosis Counseling: Problematic behaviors secondary to diagnosis and Adequacy of current interventions Details: I spent [38] minutes reviewing the record, seeing the patient and documenting in the medical record. Counseling provided to the patient/caregiver as outlined below. Addressed patient/caregiver concerns regarding current medication regime including effective adherence. Addressed patient/caregiver concerns regarding diagnosis and prognosis including accuracy of diagnosis, prognosis over time, impact of diagnosis. Addressed patient/caregiver concerns regarding impact of recent stressors. [facility] Medical History (Updated 05/04/23 @ 12:15 by Joseph Ye) Alcohol use disorder, severe, in sustained remission Essential hypertension Primary lung cancer Generalized anxiety disorder Social History: Patient lives alone owned her own house retired history of ADD has always felt like the black sheep of the family Substance History: Past history of alcohol abuse has been sober and regularly goes to meetings Trauma History: past Coding Level of Care Code Est Pt Level 3 (63406) Therapy 30m w/E&M (49201) Diagnoses Major depressive disorder, recurrent severe without psychotic features F33.2 ADD (attention deficit disorder) F98.8 Generalized anxiety disorder F41.1 Essential hypertension I10
== END 2023-09-17 15:32 | disposition home or self-care (01) ==
LOC: HO.HOP 15:02
PROVIDERS: PCP Physician Assistant; Visit Provider Psychiatry & Neurology Psychiatry
DX: F33.2 Major depressive disorder, recurrent severe without psychotic features (principal); F98.8 Other specified behavioral and emotional disorders with onset usually occurring in childhood and adolescence; F41.1 Generalized anxiety disorder; I10 Essential (primary) hypertension
CPT/HCPCS: 90833; 99213

== ENCOUNTER → 2023-09-17 15:02 | Outpatient (BNVA) | payer MEDICARE, SELFPAY | PROVIDERS: PCP Physician Assistant; Visit Provider Psychiatry & Neurology Psychiatry | DX: F33.2 Major depressive disorder, recurrent severe without psychotic features (principal); F98.8 Other specified behavioral and emotional disorders with onset usually occurring in childhood and adolescence; F41.1 Generalized anxiety disorder; I10 Essential (primary) hypertension | CPT/HCPCS: 99212 ==

== ENCOUNTER 2023-10-22 16:48 | Outpatient (AMB) | payer MEDICARE, SELFPAY ==
--- NOTE | 2023-10-22 14:15 | A.OFFPSYCH_ITS ---
Intake Intake Visit Reasons: depression Allergies No Known Allergies [No Known Allergies*] Allergy (Verified 02/26/23 14:18) Medication List - Last Reconciled 10/22/23 by Lambert Covington MD clonazepam 0.25 - 0.5 mg (0.5 - 1 x 0.5 mg) PO DAILY PRN clonidine HCl 0.1 mg PO BID levomefolate calcium (L-Methylfolate) 7.5 mg PO DAILY lisinopril 10 mg PO DAILY oxcarbazepine 150 mg PO TID venlafaxine ER 75 mg PO DAILY HPI- Psychiatric Chief Complaint: depression HPI Narrative: Pt under stress has vocal cord polyp has been vaping her o2 has gone down to some degree will be having surgery in 10 days ent prim care paz oliver anxiety somewhat better went to [place] recently to visist old friend pt has chronic issues not accepting herself felt much more accepted recently has chronic anxiety and depressive symptoms seems to be showing more self-care no SI seems more reflective over the past few weeks unfortunately has increased her vaping Past Psychiatric History: Patient has had periods of suicidal depression patient has been seeing this proposal manager writer for psychiatric follow-up for many years 150 mg daily higher doses were not effective clonidine half to 1 tab daily or half tab b.i.d. was on Depakote ER has had side effects. Gabapentin 300 mg morning 600 bedtime trazodone 100 at bedtime. Has not tolerated multiple SSRI trials mirtazapine Seroquel Anafranil and nortriptyline Patient has had periods of suicidal depression patient has been seeing this proposal manager writer for psychiatric follow- up for many year 150 mg daily higher doses were not effective clonidine half to 1 tab daily or half tab b.i.d. was on Depakote ER has had side effects. Mental Status Exam Mental Status Exam Narrative: Mental Status Exam Narrative: Appearance: Casually dressed stressed and anxious in appearance Behavior: Cooperative psychomotor: Some mouth puckering noted Speech: Normal volume and prosody Thought proccess perseveration Thought content: less neg self thinking more reflective Mood: anxiety Affect: Appropriate to mood SI:denies HI:denies VH/AH:none Delusions: None Insight/judgment: Has insight into how childhood issues can easily get triggered from her family upbringing more easily targeted Memory/cog: Intact can lose train of thought Assessment and Plan Assessment & Plan (1) Major depressive disorder, recurrent severe without psychotic features: Status: Acute Code(s): F33.2 - Major depressive disorder, recurrent severe without psychotic features (2) ADD (attention deficit disorder): Status: Acute Code(s): F98.8 - Other specified behavioral and emotional disorders with onset usually occurring in childhood and adolescence (3) Generalized anxiety disorder: Status: Acute Code(s): F41.1 - Generalized anxiety disorder (4) Essential hypertension: Status: Acute Code(s): I10 - Essential (primary) hypertension (5) Nicotine dependence: Status: Acute Code(s): F17.200 - Nicotine dependence, unspecified, uncomplicated Plan cont present tx plan has been more reflective thoughtful has been vaping has had bad reaction to chantix in the past cont effexor trileptal occ use of clonazepam does not seem to have triggered issues related to addiction or her alcohol use. She is becoming more insightful regarding need for self-care to stay away from toxic relational influences lisinopril was increased to 10 mg having surgery on her vocal cords in 10 days continues to feel Effexor clonidine oxcarbazepine helpful re-evaluate after surgery looking at referrals for nicotine addiction with patient Medications: Refilled clonidine HCl 0.1 mg PO BID 180 tabs 0RF Counseling and coordination of Care Pt. Self Management counseling: Breathing Details-Self Mgmt counseling: issues related to self care self esteem and related to smoking does not tolerate chantix Medication management counseling: Effectiveness and Side effects Diagnosis and Prognosis Counseling: Adequacy of current interventions Details: I spent [38] minutes reviewing the record, seeing the patient and documenting in the medical record. Counseling provided to the patient/caregiver as outlined below. Addressed patient/caregiver concerns regarding current medication regime including effective adherence. Addressed patient/caregiver concerns regarding diagnosis and prognosis including accuracy of diagnosis, prognosis over time, impact of diagnosis. Addressed patient/caregiver concerns regarding impact of recent stressors. [facility] Medical History (Updated 10/22/23 @ 15:14 by Lambert Covington MD) Alcohol use disorder, severe, in sustained remission Essential hypertension Primary lung cancer Generalized anxiety disorder Social History: Patient lives alone owned her own house retired history of ADD has always felt like the black sheep of the family Substance History: Past history of alcohol abuse has been sober and regularly goes to meetings Trauma History: past Coding Level of Care Code Est Pt Level 3 (15709) Therapy 30m w/E&M (66776) Diagnoses Major depressive disorder, recurrent severe without psychotic features F33.2 ADD (attention deficit disorder) F98.8 Generalized anxiety disorder F41.1 Essential hypertension I10 Nicotine dependence F17.200 Time Spent (min) 40
== END 2023-10-22 16:49 | disposition home or self-care (01) ==
LOC: HO.HOP 16:48
PROVIDERS: PCP Physician Assistant; Visit Provider Psychiatry & Neurology Psychiatry
DX: F33.2 Major depressive disorder, recurrent severe without psychotic features (principal); F98.8 Other specified behavioral and emotional disorders with onset usually occurring in childhood and adolescence; F41.1 Generalized anxiety disorder; I10 Essential (primary) hypertension; F17.200 Nicotine dependence, unspecified, uncomplicated
CPT/HCPCS: 90833; 99213

== ENCOUNTER → 2023-10-22 16:48 | Outpatient (BNVA) | payer MEDICARE, SELFPAY | PROVIDERS: PCP Physician Assistant; Visit Provider Psychiatry & Neurology Psychiatry | DX: F33.2 Major depressive disorder, recurrent severe without psychotic features (principal); F98.8 Other specified behavioral and emotional disorders with onset usually occurring in childhood and adolescence; F41.1 Generalized anxiety disorder; I10 Essential (primary) hypertension; F17.200 Nicotine dependence, unspecified, uncomplicated | CPT/HCPCS: 99212 ==

== ENCOUNTER 2023-12-04 12:36 | Outpatient (AMB) | payer MEDICARE, SELFPAY ==
--- NOTE | 2023-12-04 13:19 | MHC.OFFVISPS ---
Intake Intake Visit Reasons: DEPRESSION Allergies No Known Allergies [No Known Allergies*] Allergy (Verified 02/26/23 14:18) Medication List - Last Reconciled 12/21/23 by Lambert Covington MD clonazepam 0.25 - 0.5 mg (0.5 - 1 x 0.5 mg) PO DAILY PRN clonidine HCl 0.1 mg PO BID levomefolate calcium (L-Methylfolate) 7.5 mg PO DAILY lisinopril 10 mg PO DAILY oxcarbazepine 150 mg orally; 2 am 1 aft 1 bedtime 30 days venlafaxine ER 75 mg PO DAILY vortioxetine (Trintellix) 5 mg PO DAILY HPI- Psychiatric Chief Complaint: DEPRESSION HPI Narrative: Patient seen psychiatric follow-up. Patient continues to be anxious and ruminating depressed. Had seem to respond to TMS in the past does not want to repeat feels that probably was not that effective on Effexor oxcarbazepine with some benefit for anxiety clonidine for anxiety impulsivity. Has failed multiple medication trials has some puckering movements have avoided antipsychotic augmentation Past Psychiatric History: Patient has had periods of suicidal depression patient has been seeing this check writer salesperson for psychiatric follow-up for many years 150 mg daily higher doses were not effective clonidine half to 1 tab daily or half tab b.i.d. was on Depakote ER has had side effects. Gabapentin 300 mg morning 600 bedtime trazodone 100 at bedtime. Has not tolerated multiple SSRI trials mirtazapine Seroquel Anafranil and nortriptyline Patient has had periods of suicidal depression patient has been seeing this check writer salesperson for psychiatric follow-up for many year 150 mg daily higher doses were not effective clonidine half to 1 tab daily or half tab b.i.d. was on Depakote ER has had side effects. Mental Status Exam Mental Status Exam Narrative: Mental Status Exam Narrativ Appearance: Casually dressed stressed and anxious in appearance Behavior: Cooperative psychomotor: Some mouth puckering noted Speech: Normal volume and prosody Thought proccess perseveration Thought content: less neg self thinking more reflective Mood: anxiety depressed Affect: Appropriate to mood SI:denies HI:denies VH/AH:none Delusions: None Insight/judgment: Has insight into how childhood issues can easily get triggered from her family upbringing more easily targeted Memory/cog: Intact can lose train of thought Assessment and Plan Assessment & Plan (1) Nicotine dependence: Status: Acute Code(s): F17.200 - Nicotine dependence, unspecified, uncomplicated (2) Major depressive disorder, recurrent severe without psychotic features: Status: Acute Code(s): F33.2 - Major depressive disorder, recurrent severe without psychotic features (3) ADD (attention deficit disorder): Status: Acute Code(s): F98.8 - Other specified behavioral and emotional disorders with onset usually occurring in childhood and adolescence (4) Generalized anxiety disorder: Status: Acute Code(s): F41.1 - Generalized anxiety disorder (5) Essential hypertension: Status: Acute Code(s): I10 - Essential (primary) hypertension Plan Pt with ongoing anxiety and depressive sx chronic worse as time has gone on aging dealing with technology living alone limited help start trintellix 5 mg then taper venlafaxine pt may need to eventually simplify her life feels tms ? ultimately not ongoing beneficial spravato may be helpful inc trileptal may help with anxiety irritability Medications: New vortioxetine (Trintellix) 5 mg PO DAILY 30 tabs 2RF Changed From oxcarbazepine 150 mg orally; 2 am 1 aft 1 bedtime 90 tabs 2RF To oxcarbazepine 150 mg orally; 2 am 1 aft 1 bedtime 120 tabs 2RF 30 days Counseling and coordination of Care Details-Self Mgmt counseling: Issues related to chronic depression anxiety managing life stressed denies active SI Chronic negative self talk Details: I spent [38] minutes reviewing the record, seeing the patient and documenting in the medical record. Counseling provided to the patient/caregiver as outlined below. Addressed patient/caregiver concerns regarding current medication regime including effective adherence. Addressed patient/caregiver concerns regarding diagnosis and prognosis including accuracy of diagnosis, prognosis over time, impact of diagnosis. Addressed patient/caregiver concerns regarding impact of recent stressors. [facility] Medical History (Updated 10/22/23 @ 15:14 by Lambert Covington MD) Alcohol use disorder, severe, in sustained remission Essential hypertension Primary lung cancer Generalized anxiety disorder Social History: Patient lives alone owned her own house retired history of ADD has always felt like the black sheep of the family Substance History: Past history of alcohol abuse has been sober and regularly goes to meetings Trauma History: past Coding Level of Care Code Est Pt Level 3 (72157) Therapy 30m w/E&M (69850) Diagnoses Nicotine dependence F17.200 Major depressive disorder, recurrent severe without psychotic features F33.2 ADD (attention deficit disorder) F98.8 Generalized anxiety disorder F41.1 Essential hypertension I10
== END 2023-12-04 13:48 | disposition home or self-care (01) ==
LOC: HO.HOP 12:36
PROVIDERS: PCP Physician Assistant; Visit Provider Psychiatry & Neurology Psychiatry
DX: F33.2 Major depressive disorder, recurrent severe without psychotic features (principal); F98.8 Other specified behavioral and emotional disorders with onset usually occurring in childhood and adolescence; F41.1 Generalized anxiety disorder; F17.200 Nicotine dependence, unspecified, uncomplicated; I10 Essential (primary) hypertension
CPT/HCPCS: 90833; 99213

== ENCOUNTER → 2023-12-04 12:36 | Outpatient (BNVA) | payer MEDICARE, SELFPAY | PROVIDERS: PCP Physician Assistant; Visit Provider Psychiatry & Neurology Psychiatry | DX: F33.2 Major depressive disorder, recurrent severe without psychotic features (principal); F98.8 Other specified behavioral and emotional disorders with onset usually occurring in childhood and adolescence; F41.1 Generalized anxiety disorder; I10 Essential (primary) hypertension; F17.210 Nicotine dependence, cigarettes, uncomplicated | CPT/HCPCS: 99212 ==

== ENCOUNTER 2024-01-03 09:31 | Outpatient (AMB) | payer MEDICARE, SELFPAY ==
--- NOTE | 2024-01-03 09:45 | A.OFFPSYCH_ITS ---
Intake Intake Visit Reasons: anxiety, depression, ADHD Multifocal Button Grinder Required: No Allergies No Known Allergies [No Known Allergies*] Allergy (Verified 02/26/23 14:18) Medication List - Last Reconciled 01/03/24 by Belen Elizondo APRN clonazepam 0.25 - 0.5 mg (0.5 - 1 x 0.5 mg) PO DAILY PRN clonidine HCl 0.1 mg PO BID levomefolate calcium (L-Methylfolate) 7.5 mg PO DAILY lisinopril 10 mg PO DAILY oxcarbazepine 150 mg orally; 2 am 1 aft 1 bedtime 30 days venlafaxine ER 75 mg PO DAILY vortioxetine (Trintellix) 5 mg PO DAILY HPI- Psychiatric Chief Complaint: anxiety, depression, ADHD HPI Narrative: pt reports improvement with trintellix 5 mg daily- she reports she was motivated to clean, scrub, then sand and paint her porch- something she has been wanting to do for a long time; she felt she didn't have the energy or motivation to get it done until recently. She describes many recent episodes of disorganization, forgetfulness, inability to organize and frustration; she went to grocery store and forgot to take her credit card and then when she went back for credit card she left her wallet on the checkout counter; she was embarrassed. she reports the clutter in her home makes her agitated and anxious; she had instructions on how to manage a computer mary written out by her niece placed on her kitchen table for months and then when she went to find it recently she couldn't find it- two days later she found it on a side table near her chair in living room. she aslo recently started to worry that she shouldn't keep her meds in the bathroom after reading about humidity so she put her bedtime meds in her bedroom nightstand drawer, her morning meds in a kitchen drawer and her daytime meds somewhere else; this morning she could not recall which draw in the kitchen she put them in so she spent much time opening every drawer looking for them; she is often frustrated by these events; she is very critical of herself. she feels trapped; she feels if she moved she would lose her neighbors and friends with whom she is very close. she tried to have a global upstream marketing manager help her around the house but he didn't bring any tools so she was running up and down 4 flights of stairs to get him tools. she says she gets angry and overwhelmed and sad by this. she feels she can't get angry with the global upstream marketing manager; she blames herself and feels useless and hopeless. she say she is working with her therapist on changing her inner self talk. she denies side effects from medication, expressive passive SI but no plan or intention to harm or kill herself. Past Psychiatric History: Patient has had periods of suicidal depression patient has been seeing this literary writer for psychiatric follow-up for many years 150 mg daily higher doses were not effective clonidine half to 1 tab daily or half tab b.i.d. was on Depakote ER has had side effects. Gabapentin 300 mg morning 600 bedtime trazodone 100 at bedtime. Has not tolerated multiple SSRI trials mirtazapine Seroquel Anafranil and nortriptyline Patient has had periods of suicidal depression patient has been seeing this literary writer for psychiatric follow- up for many year 150 mg daily higher doses were not effective clonidine half to 1 tab daily or half tab b.i.d. was on Depakote ER has had side effects. Mental Status Exam Mental Status Exam Patient Appearance: Appropriate Patient Orientation: Person, Place, Time and Situation Level of Consciousness: Awake, Restless and Alert Patient Behavior: Appropriate, Cooperative, Restless and Crying (teary eyed) Mood Description: Anxious and Sad Affect Description: Anxious and Sad Ability to Follow Directions: Good Speech Pattern: Clear and Appropriate Memory Description: Episodic Impaired Hallucinations: None Delusions: Not Present and Thought Insert/Delete Perceptual Disturbances: Depersonalization Thought Process: Intact and Goal Oriented Thought Content: positive for Intact and positive for Goal Oriented Judgement: Good Assessment and Plan Assessment & Plan (1) Major depressive disorder, recurrent severe without psychotic features: Status: Acute Code(s): F33.2 - Major depressive disorder, recurrent severe without psychotic features (2) ADD (attention deficit disorder): Status: Acute Qualifiers: Attention deficit-hyperactivity disorder type: combined inattentive- hyperactive Hyperactivity presence: present Qualified Code(s): F90.2 - Attention-deficit hyperactivity disorder, combined type Code(s): F98.8 - Other specified behavioral and emotional disorders with onset usually occurring in childhood and adolescence (3) Generalized anxiety disorder: Status: Acute Code(s): F41.1 - Generalized anxiety disorder Plan contnue current medications; add vitamin B12 5000 mcg lozengers daily; consider adderall 2.5mg TID or low dose exteded release adderall XR 5mg daily for ADHD chart reviewed including paper chart- one vague reference of a stimulant tx while working with Dr Haynes- no note on efficacy Medications: Refilled oxcarbazepine 150 mg orally; 2 am 1 aft 1 bedtime 120 tabs 2RF 30 days venlafaxine ER 75 mg PO DAILY 90 caps 1RF vortioxetine (Trintellix) 5 mg PO DAILY 30 tabs 2RF clonazepam 0.25 - 0.5 mg (0.5 - 1 x 0.5 mg) PO DAILY PRN 7 tabs 1RF severe anxiety clonidine HCl 0.1 mg PO BID 180 tabs 0RF Counseling and coordination of Care Pt. Self Management counseling: Maintenance-social rhythm, Behavior activation, Cognitive restructuring and General coping skills Medication management counseling: Effectiveness, Side effects, Dosing range, Duration, Drug interaction and Adherence Diagnosis and Prognosis Counseling: Accuracy of diagnosis, Prognosis over time, Impact of diagnosis on life functions, Impact of family relationship, Problematic behaviors secondary to diagnosis and Adequacy of current interventions Details: I spent 30 minutes reviewing the record, seeing the patient and documenting in the medical record. Counseling provided to the patient/caregiver as outlined below. Addressed patient/caregiver concerns regarding current medication regime including effective adherence. Addressed patient/caregiver concerns regarding diagnosis and prognosis including accuracy of diagnosis, prognosis over time, impact of diagnosis. Addressed patient/caregiver concerns regarding impact of recent stressors. [facility] Medical History (Updated 01/03/24 @ 12:59 by Belen Elizondo APRN) Alcohol use disorder, severe, in sustained remission Essential hypertension Primary lung cancer Generalized anxiety disorder Social History: Patient lives alone owned her own house retired history of ADD has always felt like the black sheep of the family Substance History: Past history of alcohol abuse has been sober and regularly goes to meetings Trauma History: past Coding Level of Care Code Est Pt Level 4 (76374) Therapy 30m w/E&M (80651) Diagnoses Major depressive disorder, recurrent severe without psychotic features F33.2 Attention deficit hyperactivity disorder (ADHD), combined type F90.2 Attention deficit-hyperactivity disorder type: combined inattentive- hyperactive Hyperactivity presence: present Generalized anxiety disorder F41.1
== END 2024-01-03 10:36 | disposition home or self-care (01) ==
LOC: HO.HOP 09:31
PROVIDERS: PCP Physician Assistant; Visit Provider Clinical Nurse Specialist Psychiatric/Mental Health
DX: F33.2 Major depressive disorder, recurrent severe without psychotic features (principal); F90.2 Attention-deficit hyperactivity disorder, combined type; F41.1 Generalized anxiety disorder
CPT/HCPCS: 90833; 99214

== ENCOUNTER → 2024-01-03 09:31 | Outpatient (BNVA) | payer MEDICARE, SELFPAY | PROVIDERS: PCP Physician Assistant; Visit Provider Clinical Nurse Specialist Psychiatric/Mental Health | DX: F33.2 Major depressive disorder, recurrent severe without psychotic features (principal); F90.2 Attention-deficit hyperactivity disorder, combined type; F41.1 Generalized anxiety disorder | CPT/HCPCS: 99212 ==

== ENCOUNTER 2024-01-21 09:32 | Outpatient (AMB) | payer MEDICARE, SELFPAY ==
--- NOTE | 2024-01-21 09:44 | A.OFFPSYCH_ITS ---
Intake Intake Visit Reasons: depression, anxiety, ADHD Overweaver Required: No Allergies No Known Allergies [No Known Allergies*] Allergy (Verified 02/26/23 14:18) Medication List - Last Reconciled 01/21/24 by Belen Elizondo APRN clonazepam 0.25 - 0.5 mg (0.5 - 1 x 0.5 mg) PO DAILY PRN clonidine HCl 0.1 mg PO BID levomefolate calcium (L-Methylfolate) 7.5 mg PO DAILY lisinopril 10 mg PO DAILY oxcarbazepine 150 mg orally; 2 am 1 aft 1 bedtime 30 days venlafaxine ER 75 mg PO DAILY vortioxetine (Trintellix) 5 mg PO DAILY HPI- Psychiatric Chief Complaint: depression, anxiety, ADHD HPI Narrative: pt reports easily frustrated, feels overwhelmed, sad, low motivation, unable to concentrate or focus, tasks feel overwhelming. Pt wakes in the morning feeling panic. She feels very sensitive to perceived criticism and or abandonment. She has many things around her home she feels unable to do either due to physical limitations but more often because the steps of the task feel overwhelming. she is grieving her sisters dog who just ; she feels left out of social groups; she does says she has several neighbors who are wonderful and caring. Pt denies side effects from meds but also does not feel the medication is helping. she denies SI or HI. she has had no ETOH for 4 + years. She is going on vacation with her sisters next week. Past Psychiatric History: Patient has had periods of suicidal depression patient has been seeing this sign writer letterer or painter for psychiatric follow-up for many years 150 mg daily higher doses were not effective clonidine half to 1 tab daily or half tab b.i.d. was on Depakote ER has had side effects. Gabapentin 300 mg morning 600 bedtime trazodone 100 at bedtime. Has not tolerated multiple SSRI trials mirtazapine Seroquel Anafranil and nortriptyline Patient has had periods of suicidal depression patient has been seeing this sign writer letterer or painter for psychiatric follow- up for many year 150 mg daily higher doses were not effective clonidine half to 1 tab daily or half tab b.i.d. was on Depakote ER has had side effects. Subjective Subjective Subjective Medication Compliance: Yes Side effects from medications: No Review of Systems Medical Review of Systems: unchanged Mental Status Exam Mental Status Exam Patient Appearance: Well Grooomed and Appropriate Patient Orientation: Person, Place, Time and Situation Level of Consciousness: Awake and Appropriate Patient Behavior: Appropriate, Cooperative, Anxious and Crying Mood Description: Anxious and Sad Affect Description: Anxious and Sad Patient Cognition Impaired: No Ability to Follow Directions: Good Speech Pattern: Clear and Appropriate Memory Description: Intact Hallucinations: None Delusions: Not Present Thought Process: Intact, Rumination and Goal Oriented Thought Content: positive for Intact and positive for Goal Oriented Judgement: Fair Assessment and Plan Assessment & Plan (1) Major depressive disorder, recurrent, moderate: Status: Acute Code(s): F33.1 - Major depressive disorder, recurrent, moderate (2) ADD (attention deficit disorder): Status: Acute Qualifiers: Hyperactivity presence: present Attention deficit-hyperactivity disorder type: combined inattentive-hyperactive Qualified Code(s): F90.2 - A ttention-deficit hyperactivity disorder, combined type Code(s): F98.8 - Other specified behavioral and emotional disorders with onset usually occurring in childhood and adolescence (3) Generalized anxiety disorder: Status: Acute Code(s): F41.1 - Generalized anxiety disorder Plan increase trintellix to 10mg daily in 2 weeks will taper effexor to 37.5mg daily continue other medications consider low dose stimulant or strattera Medications: New vortioxetine (Trintellix) 10 mg PO DAILY 30 tabs 0RF Discontinued vortioxetine (Trintellix) Discontinued Reason: Doctor's Order 5 mg PO DAILY 30 tabs 2RF Counseling and coordination of Care Pt. Self Management counselin Step program, Maintenance-social rhythm, Mod caffeine/ETOH intake, Nutrition education and improvement and General coping skills Medication management counseling: Effectiveness, Side effects, Dosing range, Duration, Drug interaction and Adherence Diagnosis and Prognosis Counseling: Accuracy of diagnosis, Prognosis over time, Impact of diagnosis on life functions, Impact of family relationship, Problematic behaviors secondary to diagnosis and Adequacy of current interventions Details: I spent 48 minutes reviewing the record, seeing the patient and documenting in the medical record. Counseling provided to the patient/caregiver as outlined below. Addressed patient/caregiver concerns regarding current medication regime including effective adherence. Addressed patient/caregiver concerns regarding diagnosis and prognosis including accuracy of diagnosis, prognosis over time, impact of diagnosis. Addressed patient/caregiver concerns regarding impact of recent stressors. [facility] Medical History (Updated 01/21/24 @ 10:44 by Belen Elizondo APRN) Alcohol use disorder, severe, in sustained remission Essential hypertension Primary lung cancer Generalized anxiety disorder Social History: Patient lives alone owned her own house retired history of ADD has always felt like the black sheep of the family Substance History: Past history of alcohol abuse has been sober and regularly goes to meetings Trauma History: past Coding Level of Care Code Est Pt Level 4 (50814) Therapy 30m w/E&M ([id number]) Diagnoses Major depressive disorder, recurrent, moderate F33.1 Attention deficit hyperactivity disorder (ADHD), combined type F90.2 Hyperactivity presence: present Attention deficit-hyperactivity disorder type: combined inattentive- hyperactive Generalized anxiety disorder F41.1 Comment CBT and problem solving therapy re: triggers to sadness and frustration
== END 2024-01-21 10:29 | disposition home or self-care (01) ==
LOC: HO.HOP 09:32
PROVIDERS: PCP Physician Assistant; Visit Provider Clinical Nurse Specialist Psychiatric/Mental Health
DX: F33.1 Major depressive disorder, recurrent, moderate (principal); F90.2 Attention-deficit hyperactivity disorder, combined type; F41.1 Generalized anxiety disorder
CPT/HCPCS: 90833; 99214

== ENCOUNTER → 2024-01-21 09:32 | Outpatient (BNVA) | payer MEDICARE, SELFPAY | PROVIDERS: PCP Physician Assistant; Visit Provider Clinical Nurse Specialist Psychiatric/Mental Health | DX: F33.1 Major depressive disorder, recurrent, moderate (principal); F90.2 Attention-deficit hyperactivity disorder, combined type; F41.1 Generalized anxiety disorder; Z79.899 Other long term (current) drug therapy | CPT/HCPCS: 99212 ==

== ENCOUNTER 2024-02-14 09:40 | Outpatient (AMB) | payer MEDICARE, SELFPAY ==
--- NOTE | 2024-02-14 09:44 | A.OFFPSYCH_ITS ---
Intake Vital Signs 02/14/24 10:45 Height 5 ft 2 in Weight 112 lb Intake Visit Reasons: depression Proced Tech Required: No Allergies No Known Allergies [No Known Allergies*] Allergy (Verified 02/26/23 14:18) Medication List - Last Reconciled 02/14/24 by Belen Elizondo APRN clonazepam 0.25 - 0.5 mg (0.5 - 1 x 0.5 mg) PO DAILY PRN clonidine HCl 0.1 mg PO BID levomefolate calcium (L-Methylfolate) 7.5 mg PO DAILY lisinopril 10 mg PO DAILY oxcarbazepine 150 mg orally; 2 am 1 aft 1 bedtime 30 days trazodone 50 mg orally Take one tablet by mouth at bedtime and may take an additional one tablet if not asleep in one hour; venlafaxine ER 75 mg PO DAILY vortioxetine (Trintellix) 10 mg PO DAILY HPI- Psychiatric Chief Complaint: depression HPI Narrative: pt reports mood overall improved; she is still very anxious and critical of self; she has difficulty with new tasks that require several steps. she gets very anxious and frustrated when presented with new challenges. she does ultimately problem solve successfully and often asks for help if its about mechanical or technology problems. she spent time with her sisters on vacation; old wounds easily triggered; she feels alienated from them at times; she was able to stand up for herself with her younger sister when her sister was being rude; usually she will just stay silent. her PHQ9 and GAD7 are markedly improved. pt wants to get off the venlafaxine. she has been taking 2 trinteillix (10mg each so 20 mg daily) at time without adverse effect. No SI or HI. No relapse. Past Psychiatric History: Patient has had periods of suicidal depression patient has been seeing this publications writer for psychiatric follow-up for many years 150 mg daily higher doses were not effective clonidine half to 1 tab daily or half tab b.i.d. was on Depakote ER has had side effects. Gabapentin 300 mg morning 600 bedtime trazodone 100 at bedtime. Has not tolerated multiple SSRI trials mirtazapine Seroquel Anafranil and nortriptyline Patient has had periods of suicidal depression patient has been seeing this publications writer for psychiatric follow- up for many year 150 mg daily higher doses were not effective clonidine half to 1 tab daily or half tab b.i.d. was on Depakote ER has had side effects. Subjective Subjective Subjective Medication Compliance: Yes Side effects from medications: No Review of Systems Medical Review of Systems: unchanged Mental Status Exam Mental Status Exam Patient Appearance: Well Grooomed and Appropriate Patient Orientation: Person, Place, Time and Situation Level of Consciousness: Awake and Alert Patient Behavior: Appropriate and Cooperative Mood Description: Anxious and Sad Affect Description: Anxious and Sad Patient Cognition Impaired: No Ability to Follow Directions: Good Speech Pattern: Clear Memory Description: Short Term Intact and Working Impaired Hallucinations: None Delusions: Not Present Thought Process: Distracted Thought Content: positive for Intact and positive for Goal Oriented Judgement: Good Assessment and Plan Assessment & Plan (1) Major depressive disorder, recurrent, moderate: Status: Acute Code(s): F33.1 - Major depressive disorder, recurrent, moderate (2) ADD (attention deficit disorder): Status: Acute Qualifiers: Attention deficit-hyperactivity disorder type: combined inattentive- hyperactive Hyperactivity presence: present Qualified Code(s): F90.2 - Attention-deficit hyperactivity disorder, combined type Code(s): F98.8 - Other specified behavioral and emotional disorders with onset usually occurring in childhood and adolescence (3) Generalized anxiety disorder: Status: Acute Code(s): F41.1 - Generalized anxiety disorder Plan decrease effexor xr 37.5mg daily x 10 days then stop call if having withdrawal symptoms continue trintellix 20mg daily continue trileptal, clonidine, clonazepam,and trazodone Medications: New vortioxetine (Trintellix) 20 mg PO DAILY 90 tabs 0RF F33.2 - Major depressive disorder, recurrent severe without psychotic features venlafaxine ER 37.5 mg PO DAILY 30 caps 0RF F33.2 - Major depressive disorder, recurrent severe without psychotic features Refilled clonidine HCl 0.1 mg PO BID 180 tabs 0RF F33.2 - Major depressive disorder, recurrent severe without psychotic features clonazepam 0.25 - 0.5 mg (0.5 - 1 x 0.5 mg) PO DAILY PRN 30 tabs 1RF severe anxiety F33.2 - Major depressive disorder, recurrent severe without psychotic features oxcarbazepine 150 mg orally; 2 am 1 aft 1 bedtime 120 tabs 2RF 30 days F33.2 - Major depressive disorder, recurrent severe without psychotic features Discontinued vortioxetine (Trintellix) Discontinued Reason: Doctor's Order 10 mg PO DAILY 30 tabs 0RF venlafaxine ER Discontinued Reason: Doctor's Order 75 mg PO DAILY 90 caps 0RF Counseling and coordination of Care Pt. Self Management counseling: Maintenance-social rhythm, Mod caffeine/ETOH intake, Sleep hygiene, Behavior activation and Problem solving Medication management counseling: Effectiveness, Side effects, Dosing range, Duration, Drug interaction and Adherence Diagnosis and Prognosis Counseling: Accuracy of diagnosis, Prognosis over time, Impact of diagnosis on life functions and Adequacy of current interventions Details: I spent 45 minutes reviewing the record, seeing the patient and documenting in the medical record. Counseling provided to the patient/caregiver as outlined below. Addressed patient/caregiver concerns regarding current medication regime including effective adherence. Addressed patient/caregiver concerns regarding diagnosis and prognosis including accuracy of diagnosis, prognosis over time, impact of diagnosis. Addressed patient/caregiver concerns regarding impact of recent stressors. [facility] Medical History (Updated 01/21/24 @ 10:44 by Belen Elizondo APRN) Alcohol use disorder, severe, in sustained remission Essential hypertension Primary lung cancer Generalized anxiety disorder Social History: Patient lives alone owned her own house retired history of ADD has always felt like the black sheep of the family Substance History: Past history of alcohol abuse has been sober and regularly goes to meetings Trauma History: past Coding Level of Care Code Est Pt Level 5 (79159) Diagnoses Major depressive disorder, recurrent, moderate F33.1 Attention deficit hyperactivity disorder (ADHD), combined type F90.2 Attention deficit-hyperactivity disorder type: combined inattentive- hyperactive Hyperactivity presence: present Generalized anxiety disorder F41.1
== END 2024-02-14 10:33 | disposition home or self-care (01) ==
LOC: HO.HOP 09:40
PROVIDERS: PCP Physician Assistant; Visit Provider Clinical Nurse Specialist Psychiatric/Mental Health
DX: F33.1 Major depressive disorder, recurrent, moderate (principal); F90.2 Attention-deficit hyperactivity disorder, combined type; F41.1 Generalized anxiety disorder
CPT/HCPCS: 99215

== ENCOUNTER → 2024-02-14 09:40 | Outpatient (BNVA) | payer MEDICARE, SELFPAY | PROVIDERS: PCP Physician Assistant; Visit Provider Clinical Nurse Specialist Psychiatric/Mental Health | DX: F33.1 Major depressive disorder, recurrent, moderate (principal); F90.2 Attention-deficit hyperactivity disorder, combined type; F41.1 Generalized anxiety disorder | CPT/HCPCS: 99212 ==

== ENCOUNTER 2024-03-13 10:12 | Outpatient (AMB) | payer MEDICARE, SELFPAY ==
--- OUTSIDE RECORDS SUMMARY | 2024-03-13 10:14 | XMS_ITS | Patient Health Record ---
Author Organization [facility] Ana Maria danny [place]all[place] Address [address] [place] [address] Care Team Providers Care Fixture Builder Name Role Phone Kye Omer MD Primary Care Provider Tressa Watkins Unavailable [phone] REASON FOR REFERRAL No Information MEDICATIONS Medication SIG (Take, Route, Fr equency, Duration) Notes Start Date End Date Status Venlafaxine HCl 75 MG 1 tablet with food Orally Once a day Active Multivitamin Active cloNIDine HCl Active OXcarbazepine 150 MG 1 tablet Orally Twice a day Active traZODone HCl 50 MG 1 tablet at bedtime as needed Orally Once a day Active Lisinopril 5 MG 1 tablet Orally Once a day Active SOCIAL HISTORY Tobacco Use: Social History Observation Description Date Details (start date - stop date) Current Smoker 08/05/1962 - NA Sex Assigned At : Social History Observation Description Sex Assigned At Unknown Tobacco Use/Smoking Question Answer Notes Are you a: current smoker When did you start smoking? 08/05/1962 Alcohol Screen Question Answer Notes Did you have a drink containing alcohol in the p ast year? No Points 0 Interpretation Negative PLAN OF TREATMENT No Information Insurance Providers Payer Name Payer Address Payer Phone Subscriber Number Group Number Insured Name Patient Relationship to Insured Coverage Start Date Coverage End Date Medicare [facility] [address] [place] [address] [id number] Ezekiel, A Self - patient is the insured [employer] Blue [employer] [address] [place] [address] [id number] Ezekiel, A Self - patient is the insured MEDICAL (GENERAL) HISTORY Medical History History ICD Code Anxiety Cancer Depression High blood pressure Measles Mumps Chicken pox Surgical History Surgery Date(Month/Year) lung surgery 2020 lobe removal 08/2019
--- OUTSIDE RECORDS SUMMARY | 2024-03-13 10:14 | XMS_ITS ---
Author Organization [facility] Address [address] [facility] [place] [address] Care Team Providers Care Diversional Therapist Name Role Phone Kye Omer MD Primary Care Provider Tressa Watkins Unavailable [phone] MEDICATIONS Medication SIG (Take, Route, Fr equency, Duration) Notes Start Date End Date Status Venlafaxine HCl 75 MG 1 tablet with food Orally Once a day Active cloNIDine HCl Active OXcarbazepine 150 MG 1 tablet Orally Twice a day Active traZODone HCl 50 MG 1 tablet at bedtime as needed Orally Once a day Active Lisinopril 5 MG 1 tablet Orally Once a day Active Multivitamin Active SOCIAL HISTORY Tobacco Use: Social History [...] ast year? No Points 0 Interpretation Negative VITAL SIGNS Height 5 ft 2 in in 02/12/2023 Weight 113 lbs 02/12/2023 BMI 20.67 kg/m2 02/12/2023 Encounters Encounter Location Date Provider Diagnosis [facility] [address] [facility] [place] [address] 02/12/2023 Tressa King PLAN OF TREATMENT No Information
--- NOTE | 2024-03-13 10:26 | MHC.OFFVISPS ---
Intake Intake Visit Reasons: depression Warehouse Technician Required: No Allergies No Known Allergies [No Known Allergies*] Allergy (Verified 02/26/23 14:18) Medication List - Last Reconciled 03/13/24 by Belen Elizondo APRN clonazepam 0.25 - 0.5 mg (0.5 - 1 x 0.5 mg) PO DAILY PRN clonidine HCl 0.1 mg PO BID levomefolate calcium (L-Methylfolate) 7.5 mg PO DAILY lisinopril 10 mg PO DAILY oxcarbazepine 150 mg orally; 2 am 1 aft 1 bedtime 30 days trazodone TAKE 1 TABLET(50 MG) BY MOUTH AT BEDTIME. MAY TAKE AN ADDITIONAL 1 TABLET IF NOT ASLEEP IN 1 HOUR vortioxetine (Trintellix) 20 mg PO DAILY HPI- Psychiatric Chief Complaint: depression HPI Narrative: pt reports significant down mood and low energy until 5 days ago; she had 2 very good days when she felt less depressed and more energy and felt like she could get things done. then the last 4 days she has felt more overwhlemed, sad and angry; triggered by her sister criticizing her and then several difficult things at home to take car of that did not proceed easily. she felt frustrated and wanted to break things. she is not sleeping well due to frustration and ruminating. Past Psychiatric History: Patient has had periods of suicidal depression patient has been seeing this residential mortgage underwriter for psychiatric follow-up for many years 150 mg daily higher doses were not effective clonidine half to 1 tab daily or half tab b.i.d. was on Depakote ER has had side effects. Gabapentin 300 mg morning 600 bedtime trazodone 100 at bedtime. Has not tolerated multiple SSRI trials mirtazapine Seroquel Anafranil and nortriptyline Patient has had periods of suicidal depression patient has been seeing this residential mortgage underwriter for psychiatric follow-up for many year 150 mg daily higher doses were not effective clonidine half to 1 tab daily or half tab b.i.d. was on Depakote ER has had side effects. Subjective Subjective Subjective Medication Compliance: Yes Side effects from medications: No Review of Systems Medical Review of Systems: unchanged Mental Status Exam Mental Status Exam Patient Appearance: Well Grooomed and Appropriate Patient Orientation: Person, Place, Time and Situation Level of Consciousness: Awake and Alert Patient Behavior: Appropriate Mood Description: Anxious and Sad Affect Description: Anxious and Sad Ability to Follow Directions: Good Speech Pattern: Appropriate and Spontaneous Speech Memory Description: Intact Hallucinations: None Delusions: Not Present Thought Process: Intact Thought Content: positive for Intact Judgement: Fair Assessment and Plan Assessment & Plan (1) Major depressive disorder, recurrent, moderate: Status: Acute Code(s): F33.1 - Major depressive disorder, recurrent, moderate (2) ADD (attention deficit disorder): Status: Acute Qualifiers: Hyperactivity presence: present Attention deficit-hyperactivity disorder type: combined inattentive-hyperactive Code(s): F98.8 - Other specified behavioral and emotional disorders with onset usually occurring in childhood and adolescence (3) Generalized anxiety disorder: Status: Acute Code(s): F41.1 - Generalized anxiety disorder Medications: New methylphenidate HCl LA (Ritalin LA) Partial Fill upon patient request. 10 mg PO QAM 30 caps 0RF Counseling and coordination of Care Pt. Self Management counseling: Cognitive restructuring and General coping skills Medication management counseling: Effectiveness, Side effects, Dosing range, Duration, Drug interaction and Adherence Diagnosis and Prognosis Counseling: Accuracy of diagnosis, Prognosis over time, Impact of diagnosis on life functions, Impact of family relationship, Problematic behaviors secondary to diagnosis and Adequacy of current interventions Details: I spent 45 minutes reviewing the record, seeing the patient and documenting in the medical record. Counseling provided to the patient/caregiver as outlined below. Addressed patient/caregiver concerns regarding current medication regime including effective adherence. Addressed patient/caregiver concerns regarding diagnosis and prognosis including accuracy of diagnosis, prognosis over time, impact of diagnosis. Addressed patient/caregiver concerns regarding impact of recent stressors. [facility] Medical History (Updated 03/13/24 @ 11:47 by Belen Elizondo APRN) Alcohol use disorder, severe, in sustained remission Essential hypertension Primary lung cancer Generalized anxiety disorder Social History: Patient lives alone owned her own house retired history of ADD has always felt like the black sheep of the family Substance History: Past history of alcohol abuse has been sober and regularly goes to meetings Trauma History: past Coding Level of Care Code Est Pt Level 4 (46321) Therapy 30m w/E&M (59537) Diagnoses Major depressive disorder, recurrent, moderate F33.1 ADD (attention deficit disorder) F98.8 Hyperactivity presence: present Attention deficit-hyperactivity disorder type: combined inattentive-hyperactive Generalized anxiety disorder F41.1
== END 2024-03-13 12:02 | disposition home or self-care (01) ==
LOC: HO.HOP 10:12
PROVIDERS: PCP Physician Assistant; Visit Provider Clinical Nurse Specialist Psychiatric/Mental Health
DX: F33.1 Major depressive disorder, recurrent, moderate (principal); F98.8 Other specified behavioral and emotional disorders with onset usually occurring in childhood and adolescence; F41.1 Generalized anxiety disorder
CPT/HCPCS: 90833; 99214

== ENCOUNTER → 2024-03-13 10:12 | Outpatient (BNVA) | payer MEDICARE, SELFPAY | PROVIDERS: PCP Physician Assistant; Visit Provider Clinical Nurse Specialist Psychiatric/Mental Health | DX: F33.1 Major depressive disorder, recurrent, moderate (principal); F98.8 Other specified behavioral and emotional disorders with onset usually occurring in childhood and adolescence; F41.1 Generalized anxiety disorder; Z79.899 Other long term (current) drug therapy | CPT/HCPCS: 99212 ==

== ENCOUNTER 2024-04-03 11:00 | Outpatient (AMB) | payer MEDICARE, SELFPAY ==
--- OUTSIDE RECORDS SUMMARY | 2024-04-03 11:02 | XMS_ITS ---
Author Organization [facility] Address [address] [facility] [place] [address] Care Team Providers Care Preservative Filler Machine Operator Name Role Phone Kye Omer MD Primary Care Provider Tressa Watkins Unavailable [phone] MEDICATIONS Medication SIG (Take, Route, Fr equency, [...] 02/12/2023 Encounters Encounter Location Date Provider Diagnosis [facility] [address] [place] [address] 02/12/2023 Tressa King PLAN OF TREATMENT No Information
--- OUTSIDE RECORDS SUMMARY | 2024-04-03 11:03 | XMS_ITS | Patient Health Record ---
Author Organization [facility] Ana Maria danny CeballosYoung [place] Address [address] [place] [address] Care Team Providers Care Risk Lead Name Role Phone Kye Omer MD Primary Care Provider Tressa Watkins Unavailable [phone] REASON FOR REFERRAL No Information MEDICATIONS Medication [...] Start Date Coverage End Date Medicare National [facility] [address] [place] [address] [id number] Ezekiel, A Self - patient is the insured [employer] Blue [employer] [address] [place] [address] [id number] Ezekiel, A Self - patient is the insured MEDICAL (GENERAL) HISTORY Medical History History ICD Code Anxiety Cancer Depression High blood pressure Measles Mumps Chicken pox Surgical History Surgery Date(Month/Year) lung surgery 2020 lobe removal 08/2019
--- NOTE | 2024-04-03 11:14 | A.OFFPSYCH_ITS ---
Intake Intake Visit Reasons: depression Animal Tech Required: No Allergies No Known Allergies [No Known Allergies*] Allergy (Verified 02/26/23 14:18) Medication List - Last Reconciled 04/03/24 by Belen Elizondo APRN clonazepam 0.25 - 0.5 mg (0.5 - 1 x 0.5 mg) PO DAILY PRN clonidine HCl 0.1 mg PO BID levomefolate calcium (L-Methylfolate) 7.5 mg PO DAILY lisinopril 10 mg PO DAILY oxcarbazepine 150 mg orally; take 2 tablets in am, take 1 tab in afternoon, and one at bedtime 30 days trazodone 100 mg (2 x 50 mg) PO BEDTIME venlafaxine 37.5 mg PO DAILY venlafaxine ER 75 mg PO DAILY vortioxetine (Trintellix) 10 mg PO DAILY HPI- Psychiatric Chief Complaint: depression HPI Narrative: pt reports continued self loathings, unhappiness, depression, anxiety, frustration with tasks. Her therpaist sent note that last year there was a period of time Joycelyn was more stable. therpaist wants to start internal family systems; pt did not try low dose ritaliin as recommended but cam't say why; she is likely fearful due to her hx of addiction. she would like to see Dr Covington for follow up. We discussed that she can come back to see me anytime as I am happy to continue to work with her Past Psychiatric History: Patient has had periods of suicidal depression patient has been seeing this insurance writer for psychiatric follow-up for many years 150 mg daily higher doses were not effective clonidine half to 1 tab daily or half tab b.i.d. was on Depakote ER has had side effects. Gabapentin 300 mg morning 600 bedtime trazodone 100 at bedtime. Has not tolerated multiple SSRI trials mirtazapine Seroquel Anafranil and nortriptyline Patient has had periods of davila icidal depression patient has been seeing this insurance writer for psychiatric follow-up for many year 150 mg daily higher doses were not effective clonidine half to 1 tab daily or half tab b.i.d. was on Depakote ER has had side effects. Subjective Subjective Subjective Medication Compliance: Yes Side effects from medications: No Review of Systems Medical Review of Systems: unchanged Mental Status Exam Mental Status Exam Patient Appearance: Well Grooomed and Appropriate Patient Orientation: Person, Place, Time and Situation Level of Consciousness: Awake Mood Description: Anxious, Angry (irritable) and Sad Affect Description: Anxious and Sad Patient Cognition Impaired: No Ability to Follow Directions: Good Speech Pattern: Clear, Rambling and Pressured Memory Description: Intact Hallucinations: None Delusions: Not Present Thought Process: Distracted Thought Content: positive for Circumstantial, positive for Preoccupation and positive for Loose Associations Judgement: Fair Assessment and Plan Assessment & Plan (1) Major depressive disorder, recurrent, moderate: Status: Acute Code(s): F33.1 - Major depressive disorder, recurrent, moderate (2) Major depressive disorder, recurrent severe without psychotic features: Status: Acute Code(s): F33.2 - Major depressive disorder, recurrent severe without psychotic features (3) ADD (attention deficit disorder): Status: Acute Qualifiers: Attention deficit-hyperactivity disorder type: predominantly inattentive Hyperactivity presence: present Code(s): F98.8 - Other specified behavioral and emotional disorders with onset usually occurring in childhood and adolescence (4) Generalized anxiety disorder: Status: Acute Code(s): F41.1 - Generalized anxiety disorder Plan continue medications refer back to Dr Covington Counseling and coordination of Care Pt. Self Management counseling: Maintenance-social rhythm, Mindfulness, Mod caffeine/ETOH intake, Sleep hygiene, Behavior activation, Cognitive restructuring, Organization skills and time management and Problem solving Medication management counseling: Effectiveness, Side effects, Dosing range, Duration, Drug interaction and Adherence Diagnosis and Prognosis Counseling: Accuracy of diagnosis, Prognosis over time, Impact of diagnosis on life functions, Impact of family relationship, Problematic behaviors secondary to diagnosis and Adequacy of current interventions Details: I spent 50 minutes reviewing the record, seeing the patient and documenting in the medical record. Counseling provided to the patient/caregiver as outlined below. Addressed patient/caregiver concerns regarding current medication regime including effective adherence. Addressed patient/caregiver concerns regarding diagnosis and prognosis including accuracy of diagnosis, prognosis over time, impact of diagnosis. Addressed patient/caregiver concerns regarding impact of recent stressors. [facility] Medical History (Updated 04/14/24 @ 15:42 by Belen Elizondo APRN) Alcohol use disorder, severe, in sustained remission Essential hypertension Primary lung cancer Generalized anxiety disorder Social History: Patient lives alone owned her own house retired history of ADD has always felt like the black sheep of the family Substance History: Past history of alcohol abuse has been sober and regularly goes to meetings Trauma History: past Coding Level of Care Code Est Pt Level 4 (55869) Therapy 30m w/E&M (13737) Diagnoses Major depressive disorder, recurrent, moderate F33.1 Major depressive disorder, recurrent severe without psychotic features F33.2 ADD (attention deficit disorder) F98.8 Attention deficit-hyperactivity disorder type: predominantly inattentive Hyperactivity presence: present Generalized anxiety disorder F41.1
== END 2024-04-03 12:00 | disposition home or self-care (01) ==
LOC: HO.HOP 11:00
PROVIDERS: PCP Physician Assistant; Visit Provider Clinical Nurse Specialist Psychiatric/Mental Health
DX: F33.1 Major depressive disorder, recurrent, moderate (principal); F33.2 Major depressive disorder, recurrent severe without psychotic features; F98.8 Other specified behavioral and emotional disorders with onset usually occurring in childhood and adolescence; F41.1 Generalized anxiety disorder
CPT/HCPCS: 90833; 99214

== ENCOUNTER → 2024-04-03 11:00 | Outpatient (BNVA) | payer MEDICARE, SELFPAY | PROVIDERS: PCP Physician Assistant; Visit Provider Clinical Nurse Specialist Psychiatric/Mental Health | DX: F33.2 Major depressive disorder, recurrent severe without psychotic features (principal); F98.8 Other specified behavioral and emotional disorders with onset usually occurring in childhood and adolescence; F41.1 Generalized anxiety disorder | CPT/HCPCS: 99212 ==

== ENCOUNTER → 2024-04-24 15:34 | Outpatient (BNVA) | payer MEDICARE, SELFPAY | PROVIDERS: PCP Physician Assistant; Visit Provider Psychiatry & Neurology Psychiatry ==

== ENCOUNTER 2024-05-01 10:54 | Outpatient (AMB) | payer MEDICARE, SELFPAY ==
--- OUTSIDE RECORDS SUMMARY | 2024-05-01 10:57 | XMS_ITS ---
Author Organization [facility] Address [address] [facility] [address] Care Team Providers Care Kennel Worker Name Role Phone Kye Omer MD Primary Care Provider Tressa Watkins Unavailable [phone] MEDICATIONS Medication SIG (Take, Route, Fr equency, [...] 02/12/2023 Encounters Encounter Location Date Provider Diagnosis [facility] [address] [facility] [place] [address] 02/12/2023 Tressa King PLAN OF TREATMENT No Information
--- OUTSIDE RECORDS SUMMARY | 2024-05-01 10:57 | XMS_ITS | Patient Health Record ---
Author Organization [facility] Ana Maria danny [place]eball[place] Address [address] [place] [address] Care Team Providers Care Clinical Radiologist Name Role Phone Kye Omer MD Primary Care Provider Tressa Watkins Unavailable [phone] REASON FOR REFERRAL No Information MEDICATIONS Medication [...] Start Date Coverage End Date Medicare National [facility] [address] [place] [address] [id number] Ezekiel, A Self - patient is the insured [employer] Blue [employer] [address] [place] [address] [id number] Ezekiel, A Self - patient is the insured MEDICAL (GENERAL) HISTORY Medical History History ICD Code Anxiety Cancer Depression High blood pressure Measles Mumps Chicken pox Surgical History Surgery Date(Month/Year) lung surgery 2020 lobe removal 08/2019
--- NOTE | 2024-05-01 11:43 | MHC.OFFVISPS ---
Intake Intake Visit Reasons: depression Allergies No Known Allergies [No Known Allergies*] Allergy (Verified 02/26/23 14:18) HPI- Psychiatric Chief Complaint: depression HPI Narrative: Pt seen chart reviewed ca patient easily overwhelmed ruminating how she can manage herself deal with the anxiety deal with what she needs to do regarding the house. Patient feels constantly overwhelmed se discussed with Adelina Jacobo who patient had been seeing previously. Patient has had severe anxiety rumination not respond to Trintellix L methyl folate. Denies active SI feels marked anxiety all the time Past Psychiatric History: Patient has had periods of suicidal depression patient has been seeing this technical writer and editor for psychiatric follow-up for many years 150 mg daily higher doses were not effective clonidine half to 1 tab daily or half tab b.i.d. was on Depakote ER has had side effects. Gabapentin 300 mg morning 600 bedtime trazodone 100 at bedtime. Has not tolerated multiple SSRI trials mirtazapine Seroquel Anafranil and nortriptyline Patient has had periods of suicidal depression patient has been seeing this technical writer and editor for psychiatric follow-up for many year 150 mg daily higher doses were not effective clonidine half to 1 tab daily or half tab b.i.d. was on Depakote ER has had side effects. Mental Status Exam Mental Status Exam Patient Appearance: Well Grooomed and Appropriate Patient Orientation: Person, Place, Time and Situation Level of Consciousness: Awake Patient Behavior: Restless and Distractible Mood Description: Calm and Anxious Affect Description: Anxious Patient Cognition Impaired: No Ability to Follow Directions: Good Speech Pattern: Clear Memory Description: Intact Hallucinations: None Delusions: Not Present Thought Process: Distracted Thought Content: positive for Preoccupation Depressive Symptoms: Increased Anxiety, Insomnia, Diff. Making Decisions and Increased Irritability Judgement: Fair Judgement and Insight: some ruminating regarding decision making moving vs not Easily overwhelmed frequently self castigating Assessment and Plan Assessment & Plan (1) Major depressive disorder, recurrent severe without psychotic features: Status: Acute Code(s): F33.2 - Major depressive disorder, recurrent severe without psychotic features (2) Generalized anxiety disorder: Status: Acute Code(s): F41.1 - Generalized anxiety disorder (3) ADD (attention deficit disorder): Status: Acute Qualifiers: Hyperactivity presence: present Attention deficit-hyperactivity disorder type: predominantly inattentive Code(s): F98.8 - Other specified behavioral and emotional disorders with onset usually occurring in childhood and adolescence Plan Start Namenda 7 mg off-label for depression and significant ADD with marked distractibility organizational difficulties much of this is contributed to by chronic anxiety risks benefits alternatives reviewed effexor 75 mg oxcarbazone for anxiety reactivity clonidine pt feels more comfortable being seen by this technical writer and editor long hx tx resistant depression ? mild oral fascial dyskinesia avoid antipsychotics Medications: New memantine (Namenda XR) 7 mg PO DAILY 30 ea 0RF 30 days Discontinued vortioxetine Discontinued Reason: Patient no longer taking 10 mg PO DAILY 30 tabs 0RF Counseling and coordination of Care Pt. Self Management counseling: Breathing, Exercise, Sleep hygiene and Organization skills and time management Medication management counseling: Effectiveness, Side effects and Dosing range Diagnosis and Prognosis Counseling: Problematic behaviors secondary to diagnosis and Adequacy of current interventions Details: I spent [40] minutes reviewing the record, seeing the patient and documenting in the medical record. Counseling provided to the patient/caregiver as outlined below. Addressed patient/caregiver concerns regarding current medication regime including effective adherence. Addressed patient/caregiver concerns regarding diagnosis and prognosis including accuracy of diagnosis, prognosis over time, impact of diagnosis. Addressed patient/caregiver concerns regarding impact of recent stressors. [facility] Medical History (Updated 04/14/24 @ 15:42 by Belen Elizondo APRN) Alcohol use disorder, severe, in sustained remission Essential hypertension Primary lung cancer Generalized anxiety disorder Social History: Patient lives alone owned her own house retired history of ADD has always felt like the black sheep of the family Substance History: Past history of alcohol abuse has been sober and regularly goes to meetings Trauma History: past Coding Level of Care Code Est Pt Level 3 (00990) Therapy 30m w/E&M (49964) Diagnoses Major depressive disorder, recurrent severe without psychotic features F33.2 Generalized anxiety disorder F41.1 ADD (attention deficit disorder) F98.8 Hyperactivity presence: present Attention deficit-hyperactivity disorder type: predominantly inattentive
== END 2024-05-01 11:47 | disposition home or self-care (01) ==
LOC: HO.HOP 10:54
PROVIDERS: PCP Physician Assistant; Visit Provider Psychiatry & Neurology Psychiatry
DX: F33.2 Major depressive disorder, recurrent severe without psychotic features (principal); F41.1 Generalized anxiety disorder; F98.8 Other specified behavioral and emotional disorders with onset usually occurring in childhood and adolescence
CPT/HCPCS: 90833; 99213

== ENCOUNTER → 2024-05-01 10:54 | Outpatient (BNVA) | payer MEDICARE, SELFPAY | PROVIDERS: PCP Physician Assistant; Visit Provider Psychiatry & Neurology Psychiatry | DX: F33.2 Major depressive disorder, recurrent severe without psychotic features (principal); F41.1 Generalized anxiety disorder; F98.8 Other specified behavioral and emotional disorders with onset usually occurring in childhood and adolescence; Z71.89 Other specified counseling | CPT/HCPCS: 99212 ==

== ENCOUNTER 2024-05-22 11:35 | Outpatient (AMB) | payer MEDICARE, SELFPAY ==
--- OUTSIDE RECORDS SUMMARY | 2024-05-22 11:38 | XMS_ITS ---
Author Organization [facility] Address [address] [place] [address] Care Team Providers Care Technical Buyer Name Role Phone Kye Omer MD Primary Care Provider Tressa Watkins Unavailable [phone] MEDICATIONS Medication SIG (Take, Route, Fr equency, [...] 02/12/2023 Encounters Encounter Location Date Provider Diagnosis [facility] [address] [address] 02/12/2023 Tressa King PLAN OF TREATMENT No Information
--- OUTSIDE RECORDS SUMMARY | 2024-05-22 11:38 | XMS_ITS | Patient Health Record ---
Author Organization [facility] d[facility] Address [address] [place] [address] Care Team Providers Care Tire Installer Name Role Phone Kye Omer MD Primary Care Provider Tressa Watkins Unavailable [phone] REASON FOR REFERRAL No Information MEDICATIONS Medication [...] Start Date Coverage End Date Medicare [facility] [address] [place] [address] [id number] Ezekiel, A Self - patient is the insured [employer] [address] [place] [address] [id number] Ezekiel, A Self - patient is the insured MEDICAL (GENERAL) HISTORY Medical History History ICD Code Anxiety Cancer Depression High blood pressure Measles Mumps Chicken pox Surgical History Surgery Date(Month/Year) lung surgery 2020 lobe removal 08/2019
--- NOTE | 2024-05-22 11:48 | A.OFFPSYCH_ITS ---
Intake Intake Visit Reasons: depression Allergies No Known Allergies [No Known Allergies*] Allergy (Verified 02/26/23 14:18) Medication List - Last Reconciled 05/26/24 by Lambert Covington MD clonazepam 0.25 - 0.5 mg (0.5 - 1 x 0.5 mg) PO DAILY PRN clonidine HCl 0.1 mg PO BID levomefolate calcium (L-Methylfolate) 7.5 mg PO DAILY lisinopril 10 mg PO DAILY memantine 14 mg PO DAILY 30 days oxcarbazepine 150 mg orally; take 2 tablets in am, take 1 tab in afternoon, and one at bedtime 30 days trazodone 100 mg (2 x 50 mg) PO BEDTIME venlafaxine ER 75 mg PO DAILY HPI- Psychiatric Chief Complaint: depression HPI Narrative: Pt seen in f/u does get upset when around family at times feeling rejected tends to be self deprecating tolerating namenda no significant side effects Feels overwhelmed with house upkeep Pt tends to feel rejected by others . She is on low-dose clonazepam this had does not seem to have triggered any relapse issues with her alcohol or evidence of abuse or tolerance. Tends to be somewhat disorganized she is looking to see if there is a way that any family members can perhaps help her in the house for future recompense. Patient's PHQ-9 [place] her both significantly elevated. Severe anxiety that is overwhelming Past Psychiatric History: Patient has had periods of suicidal depression patient has been seeing this continuity writer for psychiatric follow-up for many years 150 mg daily higher doses were not effective clonidine half to 1 tab daily or half tab b.i.d. was on Depakote ER has had side effects. Gabapentin 300 mg morning 600 bedtime trazodone 100 at bedtime. Has not tolerated multiple SSRI trials mirtazapine Seroquel Anafranil and nortriptyline Patient has had periods of s uicidal depression patient has been seeing this continuity writer for psychiatric follow-up for many year 150 mg daily higher doses were not effective clonidine half to 1 tab daily or half tab b.i.d. was on Depakote ER has had side effects. Mental Status Exam Mental Status Exam Patient Appearance: Well Grooomed and Appropriate Patient Orientation: Person, Place, Time and Situation Level of Consciousness: Awake Patient Behavior: Appropriate Mood Description: Depressed, Anxious and Apprehensive Affect Description: Constricted, Anxious and Apprehensive Patient Cognition Impaired: No Ability to Follow Directions: Good Speech Pattern: Clear Memory Description: Intact Hallucinations: None Delusions: Not Present Thought Process: Distracted Thought Content: positive for Racing, positive for Perseveration and positive for Preoccupation Depressive Symptoms: Diff. Making Decisions, Isolating-Friends/Family, Thoughts of /Suicide and Difficulty Concentrating Judgement: Fair Judgement and Insight: some ruminating regarding decision making moving vs not moving describes periods of hopelessness helplessness passive SI no active SI Assessment and Plan Assessment & Plan (1) Major depressive disorder, recurrent, moderate: Status: Acute Code(s): F33.1 - Major depressive disorder, recurrent, moderate (2) Generalized anxiety disorder: Status: Acute Code(s): F41.1 - Generalized anxiety disorder (3) ADD (attention deficit disorder): Status: Acute Qualifiers: Hyperactivity presence: present Attention deficit-hyperactivity disorder type: predominantly inattentive Code(s): F98.8 - Other specified behavioral and emotional disorders with onset usually occurring in childhood and adolescence Plan Patient with severe anxiety and dysphoria we did discuss the option of TMS which she does not feel was helpful discussed option of antipsychotic augmentation patient does have some mild lip smacking unclear if related to past low-dose Seroquel use years ago have tried to avoid antipsychotic use [place] could certainly be thought of for augmentation with depression with irritability low-dose lithium trial could be conceivably beneficial Namenda off- label for ADD may be helpful for concentration and dysphoria. Also discussed option of PHP Counseling and coordination of Care Details-Self Mgmt counseling: Extensive discussion regarding managing current stressors and ongoing stress with self-management and managing a home Medication management counseling: Effectiveness, Side effects and Dosing range Details-Med Mgmt counseling: Consider lithium has failed multiple medical trials including combination of SSRIs SNRIs mood stabilizing agent she does remain on oxcarbazepine which appears to be somewhat helpful clonidine Diagnosis and Prognosis Counseling: Prognosis over time, Impact of diagnosis on life functions and Adequacy of current interventions Details: I spent [39] minutes reviewing the record, seeing the patient and documenting in the medical record. Counseling provided to the patient/caregiver as outlined below. Addressed kvng ent/caregiver concerns regarding current medication regime including effective adherence. Addressed patient/caregiver concerns regarding diagnosis and prognosis including accuracy of diagnosis, prognosis over time, impact of diagnosis. Addressed patient/caregiver concerns regarding impact of recent stressors. [facility] Medical History (Updated 04/14/24 @ 15:42 by Belen Elizondo APRN) Alcohol use disorder, severe, in sustained remission Essential hypertension Primary lung cancer Generalized anxiety disorder Social History: Patient lives alone owned her own house retired history of ADD has always felt like the black sheep of the family Substance History: Past history of alcohol abuse has been sober and regularly goes to meetings Trauma History: past Coding Level of Care Code Est Pt Level 3 (50978) Therapy 30m w/E&M (04103) Diagnoses Major depressive disorder, recurrent, moderate F33.1 Generalized anxiety disorder F41.1 ADD (attention deficit disorder) F98.8 Hyperactivity presence: present Attention deficit-hyperactivity disorder type: predominantly inattentive
== END 2024-05-22 12:11 | disposition home or self-care (01) ==
LOC: HO.HOP 11:36
PROVIDERS: PCP Physician Assistant; Visit Provider Psychiatry & Neurology Psychiatry
DX: F33.1 Major depressive disorder, recurrent, moderate (principal); F41.1 Generalized anxiety disorder; F98.8 Other specified behavioral and emotional disorders with onset usually occurring in childhood and adolescence
CPT/HCPCS: 90833; 99213

== ENCOUNTER → 2024-05-22 11:35 | Outpatient (BNVA) | payer MEDICARE, SELFPAY | PROVIDERS: PCP Physician Assistant; Visit Provider Psychiatry & Neurology Psychiatry | DX: F33.1 Major depressive disorder, recurrent, moderate (principal); F41.1 Generalized anxiety disorder; F98.8 Other specified behavioral and emotional disorders with onset usually occurring in childhood and adolescence; R45.851 Suicidal ideations; Z71.89 Other specified counseling; Z79.899 Other long term (current) drug therapy | CPT/HCPCS: 99212 ==

== ENCOUNTER 2024-06-10 13:57 | Outpatient (AMB) | payer MEDICARE, SELFPAY ==
--- NOTE | 2024-06-10 14:03 | MHC.OFFVISPS ---
Intake Intake Visit Reasons: depression Allergies No Known Allergies [No Known Allergies*] Allergy (Verified 02/26/23 14:18) HPI- Psychiatric Chief Complaint: depression HPI Narrative: Pt seems better old love of her life was told she may get bequest feels more loved and appreciated Pt in general appears to be doing better in general.Pt has been having somehat less anxiety dep sx pt has been thinking about how to decrease her stress has thought of diff options. No change with medication. Past Psychiatric History: Patient has had periods of suicidal depression patient has been seeing this typewriters functional tester for psychiatric follow-up for many years 150 mg daily higher doses were not effective clonidine half to 1 tab daily or half tab b.i.d. was on Depakote ER has had side effects. Gabapentin 300 mg morning 600 bedtime trazodone 100 at bedtime. Has not tolerated multiple SSRI trials mirtazapine Seroquel Anafranil and nortriptyline Patient has had periods of suicidal depression patient has been seeing this typewriters functional tester for psychiatric follow-up for many year 150 mg daily higher doses were not effective clonidine half to 1 tab daily or half tab b.i.d. was on Depakote ER has had side effects. Mental Status Exam Mental Status Exam Patient Appearance: Well Grooomed and Appropriate Patient Orientation: Person, Place, Time and Situation Level of Consciousness: Awake Patient Behavior: Appropriate Mood Description: Calm and Anxious Affect Description: Anxious Patient Cognition Impaired: No Ability to Follow Directions: Good Speech Pattern: Clear Memory Description: Intact Hallucinations: None Delusions: Not Present Thought Process: Distracted Thought Content: positive for Preoccupation Depressive Symptoms: Diff. Making Decisions Judgement: Fair Judgement and Insight: some ruminating regarding decision making moving vs not moving Assessment and Plan Assessment & Plan Medications: Changed From oxcarbazepine 150 mg orally; take 2 tablets in am, take 1 tab in afternoon, and one at bedtime 30 days 120 tabs 2RF F33.2 - Major depressive disorder, recurrent severe without psychotic features To oxcarbazepine 150 mg orally; take 2 tablets in am, take 1 tab in afternoon, and one at bedtime 120 tabs 1RF 90 days F33.2 - Major depressive disorder, recurrent severe without psychotic features From clonazepam 0.25 - 0.5 mg (0.5 - 1 x 0.5 mg) PO DAILY PRN 30 tabs 1RF severe anxiety F33.2 - Major depressive disorder, recurrent severe without psychotic features To clonazepam 0.25 - 0.5 mg (0.5 - 1 x 0.5 mg) PO DAILY PRN 30 tabs 1RF severe anxiety 30 days F33.2 - Major depressive disorder, recurrent severe without psychotic features Refilled venlafaxine ER 75 mg PO DAILY 90 caps 1RF Counseling and coordination of Care Details-Self Mgmt counseling: Issues related to chronic low self-esteem and what possible request me mean to the patient. More hopeful encourage more adaptive stress responses Medication management counseling: Effectiveness and Side effects Diagnosis and Prognosis Counseling: Impact of diagnosis on life functions and Adequacy of current interventions Details: I spent [39] minutes reviewing the record, seeing the patient and documenting in the medical record. Counseling provided to the patient/caregiver as outlined below. Addressed patient/caregiver concerns regarding current medication regime including effective adherence. Addressed patient/caregiver concerns regarding diagnosis and prognosis including accuracy of diagnosis, prognosis over time, impact of diagnosis. Addressed patient/caregiver concerns regarding impact of recent stressors. [facility] Medical History (Updated 04/14/24 @ 15:42 by Belen Elizondo APRN) Alcohol use disorder, severe, in sustained remission Essential hypertension Primary lung cancer Generalized anxiety disorder Social History: Patient lives alone owned her own house retired history of ADD has always felt like the black sheep of the family Substance History: Past history of alcohol abuse has been sober and regularly goes to meetings Trauma History: past Coding Level of Care Code Est Pt Level 3 (56840) Therapy 30m w/E&M (54212)
== END 2024-06-10 14:39 | disposition home or self-care (01) ==
LOC: HO.HOP 13:57
PROVIDERS: PCP Physician Assistant; Visit Provider Psychiatry & Neurology Psychiatry
DX: F33.2 Major depressive disorder, recurrent severe without psychotic features (principal)
CPT/HCPCS: 90833; 99213

== ENCOUNTER → 2024-06-10 13:57 | Outpatient (BNVA) | payer MEDICARE, SELFPAY | PROVIDERS: PCP Physician Assistant; Visit Provider Psychiatry & Neurology Psychiatry | DX: F33.2 Major depressive disorder, recurrent severe without psychotic features (principal) | CPT/HCPCS: 99212 ==

== ENCOUNTER → 2024-08-12 11:24 | Outpatient (BNVA) | payer MEDICARE, SELFPAY | PROVIDERS: PCP Physician Assistant; Visit Provider Psychiatry & Neurology Psychiatry | DX: F33.1 Major depressive disorder, recurrent, moderate (principal); F41.1 Generalized anxiety disorder; F98.8 Other specified behavioral and emotional disorders with onset usually occurring in childhood and adolescence; C34.90 Malignant neoplasm of unspecified part of unspecified bronchus or lung | CPT/HCPCS: 99212 ==

== ENCOUNTER 2024-09-30 13:35 | Outpatient (AMB) | payer MEDICARE, SELFPAY ==
--- NOTE | 2024-09-30 13:48 | MHC.OFFVISPS ---
Intake Intake Visit Reasons: depression Allergies No Known Allergies [No Known Allergies*] Allergy (Verified 02/26/23 14:18) Medication List - Last Reconciled 09/30/24 by Lambert Covington MD clonazepam 0.25 - 0.5 mg (0.5 - 1 x 0.5 mg) PO DAILY PRN 30 days clonidine HCl 0.1 mg PO BID levomefolate calcium (L-Methylfolate) 7.5 mg PO DAILY lisinopril 10 mg PO DAILY memantine 21 mg PO DAILY 30 days olanzapine 2.5 mg PO BEDTIME PRN oxcarbazepine 150 mg orally; take 2 tablets in am, take 1 tab in afternoon, and one at bedtime 90 days trazodone 100 mg (2 x 50 mg) PO BEDTIME venlafaxine ER 75 mg PO DAILY HPI- Psychiatric Chief Complaint: depression HPI Narrative: Pt has started radiation feels rejected by sister chelo has been black sheep in fam over time there is a lot of criticism among the family has had bad behavior in the past due to alcoholism has nieces hcp pt still vapes will stay in the house with help Past Psychiatric History: Patient has had periods of suicidal depression patient has been seeing this fiction and nonfiction writer prose for psychiatric follow-up for many years 150 mg daily higher doses were not effective clonidine half to 1 tab daily or half tab b.i.d. was on Depakote ER has had side effects. Gabapentin 300 mg morning 600 bedtime trazodone 100 at bedtime. Has not tolerated multiple SSRI trials mirtazapine Seroquel Anafranil and nortriptyline Patient has had periods of suicidal depression patient has been seeing this fiction and nonfiction writer prose for psychiatric follow-up for many year 150 mg daily higher doses were not effective clonidine half to 1 tab daily or half tab b.i.d. was on Depakote ER has had side effects. Mental Status Exam Mental Status Exam Patient Appearance: Well Grooomed and Appropriate Patient Orientation: Person, Place, Time and Situation Level of Consciousness: Awake Patient Behavior: Appropriate Mood Description: Calm and Apprehensive Affect Description: Constricted Patient Cognition Impaired: No Ability to Follow Directions: Good Speech Pattern: Clear Memory Description: Intact Hallucinations: None Delusions: Not Present Thought Process: Distracted Thought Content: positive for Preoccupation Depressive Symptoms: Diff. Making Decisions Judgement: Fair Judgement and Insight: some ruminating regarding decision making moving vs not moving Assessment and Plan Assessment & Plan (1) Major depressive disorder, recurrent severe without psychotic features: Status: Acute Code(s): F33.2 - Major depressive disorder, recurrent severe without psychotic features (2) ADD (attention deficit disorder): Status: Acute Qualifiers: Hyperactivity presence: present Attention deficit-hyperactivity disorder type: predominantly inattentive Code(s): F98.8 - Other specified behavioral and emotional disorders with onset usually occurring in childhood and adolescence (3) Generalized anxiety disorder: Status: Acute Code(s): F41.1 - Generalized anxiety disorder Plan Patient with perhaps limited relief from clonazepam and olanzapine her pulmonary nodule is reportedly radiosensitive and the patient will be getting radiation treatment continue olanzapine clonidine Klonopin venlafaxine risks benefits alternatives reviewed including spravato. Extensive discussion regarding where she should live how she would manage managing some toxic relationship that she has with some members of her family Counseling and coordination of Care Pt. Self Management counseling: Other self-help group Medication management counseling: Effectiveness, Side effects and Dosing range Diagnosis and Prognosis Counseling: Impact of diagnosis on life functions and Adequacy of current interventions Details: I spent [] minutes reviewing the record, seeing the patient and documenting in the medical record. Counseling provided to the patient/caregiver as outlined below. Addressed patient/caregiver concerns regarding current medication regime including effective adherence. Addressed patient/caregiver concerns regarding diagnosis and prognosis including accuracy of diagnosis, prognosis over time, impact of diagnosis. Addressed patient/caregiver concerns regarding impact of recent stressors. [facility] Medical History (Updated 08/30/24 @ 21:32 by Lambert Covington MD) Lung cancer Alcohol use disorder, severe, in sustained remission Essential hypertension Primary lung cancer Generalized anxiety disorder Social History: Patient lives alone owned her own house retired history of ADD has always felt like the black sheep of the family Substance History: Past history of alcohol abuse has been sober and regularly goes to meetings Trauma History: past Coding Level of Care Code Est Pt Level 3 (91515) Therapy 30m w/E&M (09087) Diagnoses Major depressive disorder, recurrent severe without psychotic features F33.2 ADD (attention deficit disorder) F98.8 Hyperactivity presence: present Attention deficit-hyperactivity disorder type: predominantly inattentive Generalized anxiety disorder F41.1
== END 2024-09-30 14:19 | disposition home or self-care (01) ==
LOC: HO.HOP 13:35
PROVIDERS: PCP Physician Assistant; Visit Provider Psychiatry & Neurology Psychiatry
DX: F33.2 Major depressive disorder, recurrent severe without psychotic features (principal); F98.8 Other specified behavioral and emotional disorders with onset usually occurring in childhood and adolescence; F41.1 Generalized anxiety disorder
CPT/HCPCS: 90833; 99213

== ENCOUNTER → 2024-09-30 13:35 | Outpatient (BNVA) | payer MEDICARE, SELFPAY | PROVIDERS: PCP Physician Assistant; Visit Provider Psychiatry & Neurology Psychiatry | DX: F33.2 Major depressive disorder, recurrent severe without psychotic features (principal); F98.8 Other specified behavioral and emotional disorders with onset usually occurring in childhood and adolescence; F41.1 Generalized anxiety disorder | CPT/HCPCS: 99212 ==

== ENCOUNTER 2024-10-28 10:34 | Outpatient (AMB) | payer MEDICARE, SELFPAY ==
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
== END 2024-10-28 16:17 | disposition home or self-care (01) ==
LOC: HO.HOP 10:34
PROVIDERS: PCP Physician Assistant; Visit Provider Psychiatry & Neurology Psychiatry
DX: F33.1 Major depressive disorder, recurrent, moderate (principal); F41.1 Generalized anxiety disorder; F98.8 Other specified behavioral and emotional disorders with onset usually occurring in childhood and adolescence; C34.90 Malignant neoplasm of unspecified part of unspecified bronchus or lung
CPT/HCPCS: 99214

== ENCOUNTER → 2024-10-28 10:34 | Outpatient (BNVA) | payer MEDICARE, SELFPAY | PROVIDERS: PCP Physician Assistant; Visit Provider Psychiatry & Neurology Psychiatry | DX: F33.1 Major depressive disorder, recurrent, moderate (principal); F41.1 Generalized anxiety disorder; F98.8 Other specified behavioral and emotional disorders with onset usually occurring in childhood and adolescence; C34.90 Malignant neoplasm of unspecified part of unspecified bronchus or lung | CPT/HCPCS: 99212 ==

== ENCOUNTER 2024-12-14 11:47 | Outpatient (AMB) | payer MEDICARE, SELFPAY ==
--- NOTE | 2024-12-14 12:22 | A.OFFPSYCH_ITS ---
Intake Intake Visit Reasons: depression Allergies No Known Allergies [No Known Allergies*] Allergy (Verified 02/26/23 14:18) Medication List - Last Reconciled 12/14/24 by Lambert Covington MD clonazepam 0.25 - 0.5 mg (0.5 - 1 x 0.5 mg) PO DAILY PRN 30 days clonidine HCl 0.1 mg PO BID levomefolate calcium (L-Methylfolate) 7.5 mg PO DAILY lisinopril 10 mg PO DAILY memantine 14 mg PO Q24H olanzapine 2.5 mg PO BEDTIME PRN oxcarbazepine 150 mg orally; take 2 tablets in am, take 1 tab in afternoon, and one at bedtime 90 days trazodone 100 mg (2 x 50 mg) PO BEDTIME venlafaxine ER 75 mg PO DAILY HPI- Psychiatric Chief Complaint: depression HPI Narrative: Pt seen in f/u mood has been severely anxious whenever she needs to travel had stoppoed olanzapine sec to wt gain then restarted . She is aware of wt gain inc blood sugar TD risk has some mouth movement chronically. Will be doing emdr has chronic neg self talk . No active si Pt with severe chronic anxiety Past Psychiatric History: Patient has had periods of suicidal depression patient has been seeing this financial underwriter for psychiatric follow-up for many years 150 mg daily higher doses were not effective clonidine half to 1 tab daily or half tab b.i.d. was on Depakote ER has had side effects. Gabapentin 300 mg morning 600 bedtime trazodone 100 at bedtime. Has not tolerated multiple SSRI trials mirtazapine Seroquel Anafranil and nortriptyline Patient has had periods of suicidal depression patient has been seeing this financial underwriter for psychiatric follow- up for many year 150 mg daily higher doses were not effective clonidine half to 1 tab daily or half tab b.i.d. was on Depakote ER has had side effects. Mental Status Exam Mental Status Exam Patient Appearance: Well Grooomed and Appropriate Patient Orientation: Person, Place, Time and Situation Level of Consciousness: Awake Patient Behavior: Appropriate Mood Description: Depressed and Apprehensive Affect Description: Calm and Constricted Patient Cognition Impaired: No Ability to Follow Directions: Good Speech Pattern: Clear Memory Description: Intact Hallucinations: None Delusions: Not Present Thought Content: positive for Preoccupation Depressive Symptoms: Diff. Making Decisions, Feelings of Worthlessness, Thoughts of /Suicide and Low Self Esteem Judgement: Fair Judgement and Insight: Has chronic negative self talk is hoping EMDR will be helpful no active SI Mild mouth puckering Assessment and Plan Assessment & Plan (1) Generalized anxiety disorder: Status: Acute Code(s): F41.1 - Generalized anxiety disorder (2) ADD (attention deficit disorder): Status: Acute Qualifiers: Hyperactivity presence: present Attention deficit-hyperactivity disorder type: predominantly inattentive Code(s): F98.8 - Other specified behavioral and emotional disorders with onset usually occurring in childhood and adolescence (3) Major depressive disorder, recurrent, moderate: Status: Acute Code(s): F33.1 - Major depressive disorder, recurrent, moderate (4) Primary lung cancer: Status: Acute Code(s): C34.90 - Malignant neoplasm of unspecified part of unspecified bronchus or lung Plan cont olanzapine discussed diff tx opotions including prn or 1.25 mg dose disccussed multiple strategies acceptance relaxation Counseling and coordination of Care Pt. Self Management counseling: Maintenance-social rhythm, Cognitive restructuring and General coping skills Medication management counseling: Effectiveness, Side effects and Dosing range Diagnosis and Prognosis Counseling: Adequacy of current interventions Details: I spent [39] minutes reviewing the record, seeing the patient and documenting in the medical record. Counseling provided to the patient/caregiver as outlined below. Addressed patient/caregiver concerns regarding current medication regime including effective adherence. Addressed patient/caregiver concerns regarding diagnosis and prognosis including accuracy of diagnosis, prognosis over time, impact of diagnosis. Addressed patient/caregiver concerns regarding impact of recent stressors. [facility] Medical History (Updated 10/29/24 @ 10:48 by Lambert Covington MD) Lung cancer Alcohol use disorder, severe, in sustained remission Essential hypertension Primary lung cancer Generalized anxiety disorder Social History: Patient lives alone owned her own house retired history of ADD has always felt like the black sheep of the family Substance History: Past history of alcohol abuse has been sober and regularly goes to meetings Trauma History: past Coding Level of Care Code Est Pt Level 4 (68357) Diagnoses Generalized anxiety disorder F41.1 ADD (attention deficit disorder) F98.8 Hyperactivity presence: present Attention deficit-hyperactivity disorder type: predominantly inattentive Major depressive disorder, recurrent, moderate F33.1 Primary lung cancer C34.90
== END 2024-12-14 13:51 | disposition home or self-care (01) ==
LOC: HO.HOP 11:47
PROVIDERS: PCP Physician Assistant; Visit Provider Psychiatry & Neurology Psychiatry
DX: F41.1 Generalized anxiety disorder (principal); F98.8 Other specified behavioral and emotional disorders with onset usually occurring in childhood and adolescence; F33.1 Major depressive disorder, recurrent, moderate; C34.90 Malignant neoplasm of unspecified part of unspecified bronchus or lung
CPT/HCPCS: 99214

== ENCOUNTER → 2024-12-14 11:47 | Outpatient (BNVA) | payer MEDICARE, SELFPAY | PROVIDERS: PCP Physician Assistant; Visit Provider Psychiatry & Neurology Psychiatry | DX: F41.1 Generalized anxiety disorder (principal); F98.8 Other specified behavioral and emotional disorders with onset usually occurring in childhood and adolescence; F33.1 Major depressive disorder, recurrent, moderate; C34.90 Malignant neoplasm of unspecified part of unspecified bronchus or lung | CPT/HCPCS: 99212 ==

== ENCOUNTER 2025-03-05 12:07 | Outpatient (REF) | payer MEDICARE, SELFPAY ==
[2025-03-05 13:19] LABS: MANUAL DIFF FLAG NO
[2025-03-05 13:27] LABS: Hematocrit 40.0 % (37.0-47.0); Hemoglobin 14.5 g/dl (12.0-16.0); Imm Gran Abs Auto 0.02 X10*3/uL (0.00-0.03); Imm Gran Pct Auto 0.3 % (0.0-0.4); Lymphocytes Absolute Auto 1.3 X10*3/uL (1.2-4.9); Mean Corpuscular HGB Conc 36.3 g/dl (31.0-35.0); Mean Corpuscular Hemoglobin 32.1 pg (27.0-33.0); Mean Corpuscular Volume 88.5 fL (80.0-98.0); NRBC Abs Auto 0.000 X10*3/uL (0.0-0.012); NRBC Pct Auto 0.0 /100WBC (0.0-0.2); Platelet Count 262 X10*3/uL (160-400); Red Blood Count 4.52 X10*6/uL (4.20-5.50); White Blood Count 6.5 X10*3/uL (4.8-10.8)
[2025-03-05 13:52] LABS: Alanine Aminotransferase 20 U/L (0-31); Albumin Level 4.4 g/dL (3.5-5.0); Alkaline Phosphatase 98 U/L (39-117); Anion Gap 10 (12-20); Aspartate Amino Transferase 25 U/L (5-31); Blood Urea Nitrogen 11 mg/dL (9-16); Calcium 9.5 mg/dL (8.4-10.2); Carbon Dioxide 32 mmol/L (22-29); Chloride 98 mmol/L (96-108); Estimated Glomerular Filt Rate > 60; Potassium 4.6 mmol/L (3.3-5.1); Sodium 135 mmol/L (135-145); Total Protein 7.1 g/dL (6.5-8.0)
== END 2025-03-05 12:08 | disposition home or self-care (01) ==
LOC: HO.LAB 12:07
PROVIDERS: PCP Physician Assistant; Visit Provider Psychiatry & Neurology Psychiatry
DX: F33.2 Major depressive disorder, recurrent severe without psychotic features (principal); F41.1 Generalized anxiety disorder; F98.8 Other specified behavioral and emotional disorders with onset usually occurring in childhood and adolescence; I10 Essential (primary) hypertension; C34.90 Malignant neoplasm of unspecified part of unspecified bronchus or lung
CPT/HCPCS: 36415; 80053; 85025; 99212

== ENCOUNTER 2025-03-05 12:07 | Outpatient (AMB) | payer MEDICARE, SELFPAY ==
--- NOTE | 2025-03-05 12:15 | A.OFFPSYCH_ITS ---
Intake Intake Visit Reasons: depression Allergies No Known Allergies (No Known Allergies*) Allergy (Verified 02/26/23 14:18) Medication List - Last Reconciled 04/06/25 by Lambert Covington MD clonazepam 0.25 - 0.5 mg (0.5 - 1 x 0.5 mg) PO DAILY PRN 30 days clonidine HCl 0.1 mg PO BID levomefolate calcium (L-Methylfolate) 7.5 mg PO DAILY lisinopril 10 mg PO DAILY memantine 14 mg PO Q24H olanzapine 2.5 mg PO BEDTIME PRN oxcarbazepine 150 mg orally; take 2 tablets in am, take 1 tab in afternoon, and one at bedtime 90 days trazodone 100 mg (2 x 50 mg) PO BEDTIME venlafaxine ER 75 mg PO DAILY HPI- Psychiatric Chief Complaint: depression HPI Narrative: Pt seen in psych f/u mood down anxious has been at [facility] had radiation therapy Patient anxious and dysphoric. Her sister seriously ill with cancer that she has a very ambivalent relationship with has always felt rejected by her. Patient with some improvement on memantine continues on Effexor 75 mg olanzapine at HS. Patient has some supportive relationships with family and different friends Past Psychiatric History: Patient has had periods of suicidal depression patient has been seeing this property underwriter for psychiatric follow-up for many years 150 mg daily higher doses were not effective clonidine half to 1 tab daily or half tab b.i.d. was on Depakote ER has had side effects. Gabapentin 300 mg morning 600 bedtime trazodone 100 at bedtime. Has not tolerated multiple SSRI trials mirtazapine Seroquel Anafranil and nortriptyline Patient has had periods of suicidal depression patient has been seeing this property underwriter for psychiatric follow- up for many year 150 mg daily higher doses were not effective clonidine half to 1 tab daily or half tab b.i.d. was on Depakote ER has had side effects. Assessment and Plan Assessment & Plan (1) Major depressive disorder, recurrent severe without psychotic features: Status: Acute Code(s): F33.2 - Major depressive disorder, recurrent severe without psychotic features (2) Generalized anxiety disorder: Status: Acute Code(s): F41.1 - Generalized anxiety disorder (3) ADD (attention deficit disorder): Status: Acute Qualifiers: Hyperactivity presence: present Attention deficit-hyperactivity disorder type: predominantly inattentive Code(s): F98.8 - Other specified behavioral and emotional disorders with onset usually occurring in childhood and adolescence Plan Patient complains of confusion periods of lethargy. Patient has been looking and has been conflicted regarding moving from her house seeing if she can find some peace of mind at this point in her life. Has been encouraged to cut off from negative relationships in which she is always feeling rejected not good enough chronic entrenched thoughts. Patient remain sober continue clonidine olanzapine anxiety and rumination does have some clonazepam for occasional use for severe anxiety and panic has not misused this. Patient continues to have significant anxiety and depression. Discussed option to increase olanzapine patient did not wish to do this. Tardive dyskinesia risks patient continues in therapy has been doing EMDR denies any active thoughts of self-harm. Offered option of TMS also discussed option of spravato and given referral information Medications: Refilled clonidine HCl 0.1 mg PO BID 180 tabs 1RF F33.2 - Major depressive disorder, recurrent severe without psychotic features Orders: Orders Complete Blood Count Auto Diff 03/05/25 F33.2 - Major depressive disorder, recurrent severe without psychotic features, I10 - Essential (primary) hypertension, C34.90 - Malignant neoplasm of unspecified part of unspecified bronchus or lung Comprehensive Met. Panel 03/05/25 F33.2 - Major depressive disorder, recurrent severe without psychotic features, I10 - Essential (primary) hypertension, C34.90 - Malignant neoplasm of unspecified part of unspecified bronchus or lung Counseling and coordination of Care Pt. Self Management counseling: Mindfulness, Muscle relaxation, Behavior activation and Cognitive restructuring Medication management counseling: Effectiveness and Side effects Diagnosis and Prognosis Counseling: Problematic behaviors secondary to diagnosis and Adequacy of current interventions Details: I spent [38] minutes reviewing the record, seeing the patient and documenting in the medical record. Counseling provided to the patient/caregiver as outlined below. Addressed patient/caregiver concerns regarding current medication regime including effective adherence. Addressed patient/caregiver concerns regarding diagnosis and prognosis including accuracy of diagnosis, prognosis over time, impact of diagnosis. Addressed patient/caregiver concerns regarding impact of recent stressors. [facility] Medical History (Updated 10/29/24 @ 10:48 by Lambert Covington MD) Lung cancer Alcohol use disorder, severe, in sustained remission Essential hypertension Primary lung cancer Generalized anxiety disorder Social History: Patient lives alone owned her own house retired history of ADD has always felt like the black sheep of the family Substance History: Past history of alcohol abuse has been sober and regularly goes to meetings Trauma History: past Coding Level of Care Code Est Pt Level 3 (04879) Therapy 30m w/E&M (40820) Diagnoses Major depressive disorder, recurrent severe without psychotic features F33.2 Generalized anxiety disorder F41.1 ADD (attention deficit disorder) F98.8 Hyperactivity presence: present Attention deficit-hyperactivity disorder type: predominantly inattentive
== END 2025-03-05 13:25 | disposition home or self-care (01) ==
LOC: HO.HOP 12:07
PROVIDERS: PCP Physician Assistant; Visit Provider Psychiatry & Neurology Psychiatry
DX: F33.2 Major depressive disorder, recurrent severe without psychotic features (principal); F41.1 Generalized anxiety disorder; F98.8 Other specified behavioral and emotional disorders with onset usually occurring in childhood and adolescence
CPT/HCPCS: 90833; 99213

== ENCOUNTER 2025-04-16 11:00 | Outpatient (AMB) | payer MEDICARE, SELFPAY ==
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
== END 2025-04-16 11:22 | disposition home or self-care (01) ==
LOC: HO.HOP 11:00
PROVIDERS: PCP Physician Assistant; Visit Provider Psychiatry & Neurology Psychiatry
DX: F33.2 Major depressive disorder, recurrent severe without psychotic features (principal); F41.1 Generalized anxiety disorder; C34.90 Malignant neoplasm of unspecified part of unspecified bronchus or lung; I10 Essential (primary) hypertension; F98.8 Other specified behavioral and emotional disorders with onset usually occurring in childhood and adolescence
CPT/HCPCS: 99214

== ENCOUNTER → 2025-04-16 11:00 | Outpatient (REF) | payer MEDICARE, SELFPAY ==
--- NOTE | 2025-04-16 11:59 | ECG_ITS ---
Test Reason : f33.2 Blood Pressure : */* mmHG Vent. Rate : 59 BPM Atrial Rate : 59 BPM P-R Int : 132 ms QRS Dur : 98 ms QT Int : 440 ms P-R-T Axes : 42 23 62 degrees QTcB Int : 435 ms Sinus bradycardia Otherwise normal ECG When compared with ECG of 26-Feb-2023 14:53, No significant change was found Referred By: Lambert Covington Electronically Signed By: YONG HERNANDEZ MD
== END ==
LOC: HO.CARD 11:00
PROVIDERS: PCP Physician Assistant; Visit Provider Psychiatry & Neurology Psychiatry
DX: F33.2 Major depressive disorder, recurrent severe without psychotic features (principal); F41.1 Generalized anxiety disorder; C34.90 Malignant neoplasm of unspecified part of unspecified bronchus or lung; I10 Essential (primary) hypertension; F98.8 Other specified behavioral and emotional disorders with onset usually occurring in childhood and adolescence; Z79.899 Other long term (current) drug therapy
CPT/HCPCS: 93005; 99212

== ENCOUNTER → 2025-04-16 11:59 | Outpatient (BNV) | payer MEDICARE, SELFPAY | PROVIDERS: PCP Physician Assistant; Visit Provider Internal Medicine Cardiovascular Disease | DX: R00.1 Bradycardia, unspecified (principal) | CPT/HCPCS: 93010 ==

== ENCOUNTER 2025-05-27 13:34 | Outpatient (AMB) | payer MEDICARE, SELFPAY ==
--- NOTE | 2025-06-20 13:02 | MHC.OFFVISPS ---
Intake Intake Visit Reasons: depression Allergies No Known Allergies (No Known Allergies*) Allergy (Verified 02/26/23 14:18) HPI- Psychiatric Chief Complaint: depression HPI Narrative: Patient seen psychiatric follow-up. Patient with elevated PHQ-9 and GED. Patient has not started spravato ketamine treatment. Has not been taking olanzapine take low-dose clonazepam intermittently her lung cancer does not seem to be currently active reportedly responded to radiation treatment. Patient somewhat fatigued overwhelmed continues to be overwhelmed with responsibility and whether or not to stay in the house where she might move feels like she is caught in overwhelmed with the thought of selling her house. Denies active SI patient is in counseling has not wanted to do TMS or ECT. Feels ongoing acted by her family which is quite triggering to her she is close with some nieces Past Psychiatric History: Patient has had periods of suicidal depression patient has been seeing this travel writer for psychiatric follow-up for many years 150 mg daily higher doses were not effective clonidine half to 1 tab daily or half tab b.i.d. was on Depakote ER has had side effects. Gabapentin 300 mg morning 600 bedtime trazodone 100 at bedtime. Has not tolerated multiple SSRI trials mirtazapine Seroquel Anafranil and nortriptyline Patient has had periods of suicidal depression patient has been seeing this travel writer for psychiatric follow-up for many year 150 mg daily higher doses were not effective clonidine half to 1 tab daily or half tab b.i.d. was on Depakote ER has had side effects. Mental Status Exam Mental Status Exam Patient Appearance: Fatigued, Disheveled and Appropriate Patient Orientation: Person, Place, Time and Situation Level of Consciousness: Awake Patient Behavior: Appropriate Mood Description: Depressed and Apprehensive Affect Description: Depressed, Labile, Nervous and Apprehensive Patient Cognition Impaired: No Ability to Follow Directions: Good Speech Pattern: Clear and Perseverating Memory Description: Intact Hallucinations: None Delusions: Not Present Thought Content: positive for Preoccupation Depressive Symptoms: Diff. Making Decisions, Feelings of Worthlessness, Thoughts of /Suicide and Low Self Esteem Judgement: Fair (Patient with significant weight loss impaired distractible preoccupied) Assessment and Plan Assessment & Plan (1) Major depressive disorder, recurrent severe without psychotic features: Status: Acute Code(s): F33.2 - Major depressive disorder, recurrent severe without psychotic features (2) Generalized anxiety disorder: Status: Acute Code(s): F41.1 - Generalized anxiety disorder Plan Patient had discontinue memantine would restart appeared to have been helpful for attention concentration mood. Encourage use of low-dose clonazepam and olanzapine 2.5 b.i.d. PRN for agitated depression. Patient coordinate with [facility] for [facility] continue clonidine oxcarbazepine strongly encourage patient to allow help simplifying her life Medications: Discontinued trazodone Discontinued Reason: Duplicate 25 - 100 mg (0.5 - 2 x 50 mg) PO BEDTIME 30 days PRN 60 tabs 2RF insomnia Counseling and coordination of Care Details-Self Mgmt counseling: Issues related to feeling chronically rejected by her family Medication management counseling: Effectiveness and Side effects Diagnosis and Prognosis Counseling: Impact of diagnosis on life functions, Problematic behaviors secondary to diagnosis and Adequacy of current interventions Details-Diagnosis/Prognosis counseling: Patient was treatment resistant depression discussed treatment options and alternatives suicide hotline option of geriatric psychiatry admission Details: I spent [30] minutes reviewing the record, seeing the patient and documenting in the medical record. Counseling provided to the patient/caregiver as outlined below. Addressed patient/caregiver concerns regarding current medication regime including effective adherence. Addressed patient/caregiver concerns regarding diagnosis and prognosis including accuracy of diagnosis, prognosis over time, impact of diagnosis. Addressed patient/caregiver concerns regarding impact of recent stressors. [facility] Medical History (Updated 10/29/24 @ 10:48 by Lambert Covington MD) Lung cancer Alcohol use disorder, severe, in sustained remission Essential hypertension Primary lung cancer Generalized anxiety disorder Social History: Patient lives alone owned her own house retired history of ADD has always felt like the black sheep of the family Substance History: Past history of alcohol abuse has been sober and regularly goes to meetings Trauma History: past Coding Level of Care Code Est Pt Level 4 (13073) Diagnoses Major depressive disorder, recurrent severe without psychotic features F33.2 Generalized anxiety disorder F41.1
== END 2025-05-27 14:48 | disposition home or self-care (01) ==
LOC: HO.HOP 13:34
PROVIDERS: PCP Physician Assistant; Visit Provider Psychiatry & Neurology Psychiatry
DX: F33.2 Major depressive disorder, recurrent severe without psychotic features (principal); F41.1 Generalized anxiety disorder
CPT/HCPCS: 99214

== ENCOUNTER → 2025-05-27 13:34 | Outpatient (BNVA) | payer MEDICARE, SELFPAY | PROVIDERS: PCP Physician Assistant; Visit Provider Psychiatry & Neurology Psychiatry | DX: F33.2 Major depressive disorder, recurrent severe without psychotic features (principal); F41.1 Generalized anxiety disorder | CPT/HCPCS: 99212 ==

== ENCOUNTER 2025-06-28 10:10 | Outpatient (REF) | payer MEDICARE, SELFPAY ==
[2025-06-28 10:26] LABS: MANUAL DIFF FLAG NO
[2025-06-28 10:56] LABS: Hematocrit 45.6 % (37.0-47.0); Hemoglobin 15.5 g/dl (12.0-16.0); Imm Gran Abs Auto 0.01 X10*3/uL (0.00-0.03); Imm Gran Pct Auto 0.2 % (0.0-0.4); Lymphocytes Absolute Auto 1.3 X10*3/uL (1.2-4.9); Mean Corpuscular HGB Conc 34.0 g/dl (31.0-35.0); Mean Corpuscular Hemoglobin 30.9 pg (27.0-33.0); Mean Corpuscular Volume 90.8 fL (80.0-98.0); NRBC Abs Auto 0.000 X10*3/uL (0.0-0.012); NRBC Pct Auto 0.0 /100WBC (0.0-0.2); Platelet Count 272 X10*3/uL (160-400); Red Blood Count 5.02 X10*6/uL (4.20-5.50); White Blood Count 4.9 X10*3/uL (4.8-10.8)
[2025-06-28 12:19] LABS: Folate 16.4 ng/mL (> or = 4.0); Vitamin B12 1425 pg/mL (200-900)
[2025-06-28 15:09] LABS: Alanine Aminotransferase 20 U/L (0-31); Albumin Level 4.5 g/dL (3.5-5.0); Alkaline Phosphatase 101 U/L (39-117); Anion Gap 11 (12-20); Aspartate Amino Transferase 25 U/L (5-31); Blood Urea Nitrogen 15 mg/dL (9-16); Calcium 9.4 mg/dL (8.4-10.2); Carbon Dioxide 31 mmol/L (22-29); Chloride 100 mmol/L (96-108); Estimated Glomerular Filt Rate > 60; Potassium 4.0 mmol/L (3.3-5.1); Sodium 138 mmol/L (135-145); Total Protein 7.3 g/dL (6.5-8.0)
[2025-06-28 15:11] LABS: Appearance Urine Clear; Glucose Urine UA Negative (Negative); PH 6.5 (5.0-9.0); Specific Gravity - Urine 1.015 (1.005-1.025)
== END 2025-06-28 10:11 | disposition home or self-care (01) ==
LOC: HO.LAB 10:10
PROVIDERS: PCP Physician Assistant; Visit Provider Psychiatry & Neurology Psychiatry
DX: I10 Essential (primary) hypertension (principal); C34.90 Malignant neoplasm of unspecified part of unspecified bronchus or lung; F33.1 Major depressive disorder, recurrent, moderate; F98.8 Other specified behavioral and emotional disorders with onset usually occurring in childhood and adolescence; R39.11 Hesitancy of micturition; R41.0 Disorientation, unspecified
CPT/HCPCS: 36415; 80053; 81003; 82607; 82746; 84443; 85025